=== PATIENT | male | born 1940 | race Caucasian/White ===

== ENCOUNTER → 2016-09-21 | Outpatient (CLI) | payer MEDICARE ==
[2016-09-21 11:40] LABS: Basophils % (A) 1 %; CH 27.1; CHCM 31.3; Eosinophils # (A) 0.2 k/uL (0-0.7); Eosinophils % (A) 6 %; HCT 36.9 % (39.0-53.0); HDW 2.68; HGB 11.8 gm/dL (13.0-17.5); Hypochromasia Slight; Luc % (Auto) 3; Lymphocytes # (A) 0.7 k/uL (1.0-4.8); Lymphocytes % (A) 19 %; MCH 27.8 pg (25.0-35.0); MCHC 32.1 g/dL (31.0-37.0); MCV 86.8 fL (80.0-100.0); Mean Platelet Volume 7.8; Monocytes # (A) 0.3 k/uL (0-1.0); Monocytes % (A) 9 %; Neutrophils # (A) 2.3 k/uL (1.3-7.7); Neutrophils % (A) 63 %; RBC 4.25 m/uL (4.30-5.90); RDW 15.8 % (11.5-15.5); WBC 3.6 k/uL (3.8-10.6); WBC (Perox) 3.78
[2016-09-21 11:42] LABS: Appearance,Urine Clear (Clear); Bilirubin,Urine Negative (Negative); Glucose,Urine (UA) Negative (Negative); Ketones,Urine Negative (Negative); Leukocyte Esterase,Urine Negative (Negative); Nitrite,Urine Negative (Negative); Protein,Urine Negative (Negative); Specific Gravity,Urine 1.006 (1.001-1.035); UA Billing (MACRO vs. MICRO) CHEM; Urobilinogen,Urine <2.0 mg/dL (<2.0)
[2016-09-21 11:57] LABS: ALT 23 U/L (21-72); AST 30 U/L (17-59); Alkaline Phosphatase 48 U/L (38-126); Anion Gap 9 mmol/L; Blood Urea Nitrogen 28 mg/dL (9-20); Calcium 9.4 mg/dL (8.4-10.2); Carbon Dioxide 30 mmol/L (22-30); Chloride 102 mmol/L (98-107); Glucose 107 mg/dL (74-99); Non-African American GFR(MDRD) 60 (>60 ml/min/1.73 sqM); Potassium 4.1 mmol/L (3.5-5.1); Sodium 141 mmol/L (137-145); Total Bilirubin 0.7 mg/dL (0.2-1.3); Total Protein 6.6 g/dL (6.3-8.2)
[2016-09-21 12:04] LABS: Partial Thromboplastin Time 24.4 sec (22.0-30.0); Prothrombin Time 10.3 sec (9.0-12.0)
== END | disposition home or self-care (01) ==
LOC: LABPAT 10:47
PROVIDERS: ATTEND Orthopaedic Surgery Sports Medicine
DX: Z01.812 Encounter for preprocedural laboratory examination (principal); Z01.810 Encounter for preprocedural cardiovascular examination
CPT/HCPCS: 80053; 81003; 85025; 85610; 85730; 87070

== ENCOUNTER 2016-10-04 06:10 | Inpatient (IN) | payer MEDICARE ==
[2016-09-26 13:51] VITALS: BMI 31.1
[~2016-10-04 06:10] MED LIST: ACETAMINOPHEN TAB 500 MG TAB PO ONE; DEXAMETHASONE SOD PHOSPHATE 10 MG/ML 1 ML VIAL IV ONE; HYDROmorphone 1 MG/ML 1 ML SYRINGE IVP PRN; LIDOCAINE 1% 20 ML VIAL (10MG/ML) FOR IV START INTRADERMA PRN; MELOXICAM 7.5 MG TAB PO ONE; MIDAZOLAM 2 MG/2 ML VIAL IV PRN; ONDANSETRON 4 MG/2 ML VIAL IVP ONE; Pre Op ABX Message 1 EACH MISC MISCELLANE ONE; SCOPOLAMINE 1.5MG/72HR PATCH TRANSDERM ONE; TRANEXAMIC ACID 1,000 MG in SODIUM CHLORIDE 0.9% 100 ML IVPB ONE; ceFAZolin 2 GM in SODIUM CHLORIDE 0.9% 100 ML IVPB ONE
[2016-10-04] MEDS ORDERED: ROPIVACAINE 246.25 MG, EPINEPHrine 0.5 MG, KETOROLAC 30 MG, cloNIDine HCL/PF 80 MCG, WA... MISCELLANE ONE ×5 (09:35)
[2016-10-26] MEDS ORDERED: ROPIVACAINE 246.25 MG, EPINEPHrine 0.5 MG, KETOROLAC 30 MG, cloNIDine HCL/PF 80 MCG, WA... MISCELLANE ONE ×10 (17:00)
[2016-11-01] MEDS ORDERED: ROPIVACAINE 246.25 MG, EPINEPHrine 0.5 MG, KETOROLAC 30 MG, cloNIDine HCL/PF 80 MCG, WA... MISCELLANE ONE ×10 (06:00→11:08)
[2016-11-01] MEDS ORDERED: TRANEXAMIC ACID 1,000 MG in SODIUM CHLORIDE 0.9% 100 ML IVPB PRN (06:00)
[2016-11-01] MEDS ORDERED: MIDAZOLAM 2 MG/2 ML VIAL IV PRN (10:42)
[2016-11-01] MEDS ORDERED: HYDROmorphone 1 MG/ML 1 ML SYRINGE IVP PRN ×3 (10:42→13:08)
[2016-11-01] MEDS ORDERED: ONDANSETRON 4 MG/2 ML VIAL IVP ONE (10:42)
[2016-11-01] MEDS ORDERED: DEXAMETHASONE SOD PHOSPHATE 10 MG/ML 1 ML VIAL IV ONE (10:42)
[2016-11-01] MEDS ORDERED: LACTATED RINGERS 1,000 ML IV SCH (10:42)
[2016-11-01] MEDS ORDERED: LIDOCAINE 1% 20 ML VIAL (10MG/ML) FOR IV START INTRADERMA ONE (11:03)
[2016-11-01] MEDS: LACTATED RINGERS 1,000 ML IV SCH ×5 (11:04→23:06)
[2016-11-01] MEDS ORDERED: SODIUM CHLORIDE 0.9% 100 ML BAG ONE (12:59)
[2016-11-01] MEDS ORDERED: PROPOFOL 10 MG/ML 20 ML VIAL IV ONE ×2 (12:59)
[2016-11-01] MEDS ORDERED: MIDAZOLAM 2 MG/2 ML VIAL ONE (12:59)
[2016-11-01] MEDS ORDERED: fentaNYL (PF) 50 MCG/ML 2 ML AMP ONE (12:59)
[2016-11-01] MEDS ORDERED: HYDROcodone/APAP 7.5-325MG 1 EACH TAB PO PRN ×2 (13:08)
[2016-11-01] MEDS ORDERED: NA PHOS,M-B/NA PHOS,DI-BA 133 ML ENEMA RECTAL PRN (13:08)
[2016-11-01] MEDS ORDERED: TEMAZEPAM 15 MG CAP PO PRN (13:08)
[2016-11-01] MEDS ORDERED: MAGNESIUM HYDROXIDE 2,400 MG/10 ML CUP PO PRN (13:08)
[2016-11-01] MEDS ORDERED: NALOXONE 0.4 MG/ML 1 ML VIAL IV PRN (13:08)
[2016-11-01] MEDS ORDERED: hydrOXYzine PAMOATE 25 MG CAP PO PRN (13:08)
[2016-11-01] MEDS ORDERED: BISACODYL 10 MG SUPP RECTAL PRN (13:08)
[2016-11-01] MEDS ORDERED: ONDANSETRON 4 MG/2 ML VIAL IVP PRN (13:08)
[2016-11-01] MEDS ORDERED: ceFAZolin 3,000 MG in SODIUM CHLORIDE 0.9% IRRIGATIO 3,000 ML IRRIGATION ONE (13:29)
--- NOTE | 2016-11-01 15:54 | XR ---
EXAMINATION TYPE: XR knee limited RT DATE OF EXAM: 11/01/2016 3:48 PM COMPARISON: NONE TECHNIQUE: Two views submitted HISTORY: Post op FINDINGS: There is a prosthetic knee in near anatomic alignment. There is soft tissue edema and emphysema. Va scular calcifications noted. Exostosis seen posteriorly distal femur. IMPRESSION: 1. Postoperative change. Appears in near-anatomic alignment
[2016-11-01] MEDS ORDERED: ceFAZolin 2 GM in SODIUM CHLORIDE 0.9% 100 ML IVPB ONE (16:00)
[2016-11-01] MEDS ORDERED: ceFAZolin 2 GM in SODIUM CHLORIDE 0.9% 100 ML IVPB SCH ×2 (16:00→21:00)
[2016-11-01] MEDS: HYDROmorphone 1 MG/ML 1 ML SYRINGE IVP PRN ×2 (17:10→20:53)
[2016-11-01] MEDS: ASPIRIN 325 MG TAB PO SCH (20:54)
[2016-11-01] MEDS: SENNOSIDES-DOCUSATE SODIUM 1 EACH TAB PO SCH (20:54)
[2016-11-02] MEDS: ceFAZolin 2 GM in SODIUM CHLORIDE 0.9% 100 ML IVPB SCH ×2 (00:03→08:11)
[2016-11-02] MEDS: HYDROmorphone 1 MG/ML 1 ML SYRINGE IVP PRN ×3 (00:55→09:17)
[2016-11-02] MEDS: ASPIRIN 325 MG TAB PO SCH ×2 (08:13→20:42)
[2016-11-02 08:22] LABS: Basophils % (A) 0 %; CH 26.7; Eosinophils % (A) 0 %; HCT 33.6 % (39.0-53.0); HDW 2.47; HGB 10.7 gm/dL (13.0-17.5); Hypochromasia Slight; Luc % (Auto) 1; Lymphocytes # (A) 0.7 k/uL (1.0-4.8); Lymphocytes % (A) 7 %; MCH 27.5 pg (25.0-35.0); MCHC 31.8 g/dL (31.0-37.0); MCV 86.6 fL (80.0-100.0); Mean Platelet Volume 7.5; Monocytes # (A) 0.7 k/uL (0-1.0); Monocytes % (A) 7 %; Neutrophils # (A) 7.7 k/uL (1.3-7.7); Neutrophils % (A) 84 %; RBC 3.88 m/uL (4.30-5.90); RDW 15.2 % (11.5-15.5); WBC 9.1 k/uL (3.8-10.6); WBC (Perox) 10.11
--- NOTE | 2016-11-02 09:08 | OP ---
DATE OF SERVICE: 11/01/2016 SURGEON: GINNY DESOUZA MD SUPERVISOR SEWER MAINTENANCE: PREOPERATIVE DIAGNOSIS: Right knee osteoarthrosis. POSTOPERATIVE DIAGNOSIS: Right knee osteoarthrosis. OPERATION: Right total knee arthroplasty. ANESTHESIA: Spinal with sedation. ESTIMATED BLOOD LOSS: 100 mL. TOURNIQUET TIME: 68 minutes at 250 mmHg. SPECIMENS REMOVED: COMPLICATIONS: None apparent. DRAINS: None. DISPOSITION: Postanesthesia care unit. OPERATIVE FINDINGS: INDICATIONS: Peter is a 76-year-old male with long-standing history of right knee pain. History and physical examination is consistent with advanced right knee osteoarthrosis. He has been through significant nonoperative management up to this point. Further treatment options were discussed and he has decided to go forward with a right total knee arthroplasty. The risks of the procedure were discussed with him in detail. These risks include, but are not limited to risk of infection, nerve damage, bleeding, pain, and a risk of deep vein thrombosis, which could lead to fatal pulmonary embolism. There is also a risk of loosening of the implant, which could require revision operation. Patient understands these risks. All of his questions were answered to his satisfaction. An appropriate informed consent was obtained. DESCRIPTION OF THE PROCEDURE: The patient was identified in the preoperative holding area. The surgical site was marked by both the patient and myself. He was given 2 grams of Ancef IV for prophylactic purposes. He then transferred to the operative suite. He was placed supine on the operating room table. Spinal anesthetic was then administered and dosed by the anesthesia department without apparent complication. Examination under anesthesia was then performed. The patient has about 5 degrees shy of full extension. He had 100 degrees of flexion and the medial collateral ligament, lateral collateral ligament and posterior cruciate ligaments were stable. Tourniquet was then placed high on the right upper thigh, well padded in preparation for surgery. The patient's right lower extremity was then prepped and draped in the usual sterile fashion. Standard surgical pause was then undertaken to ensure that we were operating on correct site and that appropriate preoperative antibiotics had been given. All staff in the room were in agreement and we proceeded. The outlines of the patella were marked with surgical pen. A planned 12 cm vertical incision centered over the patella was marked with a surgical pen. The leg was then exsanguinated with an Esmarch dressing. The knee was then flexed and the tourniquet was inflated to 250 mmHg. The total tourniquet time for the procedure was 68 minutes. Incision was then made with a 10 blade scalpel. Dissection was carried down sharply to the overlying fascia. Great care was taken to minimize the skin flaps. The knee was then exposed using a standard medial parapatellar approach. A small cuff of quadriceps tendon was then left for suturing. He was in a bit of valgus preoperatively. Very minimal medial release was made. This was done just to allow the retractors to be placed medially. The medial meniscus was then excised as well. The lateral meniscus was also released anteriorly. The leg was then externally rotated. The patella was then everted and the knee was flexed. The retractor was then placed to protect the collateral ligaments. I then proceeded to remove the infrapatellar fat pad. This was excised sharply, tangentially with the fibers of the patellar tendon. I then proceeded to remove the peripheral osteophytes. This was done with a rongeur. I then proceeded with the distal femoral resection. He did have flexion contracture. An extra 2 mm resection was planned for. The femoral canal was then entered in the mid line of the femur approximately 10 mm anterior to the origin of the posterior cruciate ligament. The ludin was then advanced down the center of the femur and placed intramedullary. Based on preoperative radiographs, the angle between the anatomic and mechanical axis of the femur was approximately 4 to 5 degrees. The valgus angle of distal femoral cutting guide was then set at 4 degrees for the right knee. The distal femoral cutting guide was then advanced over the intramedullary ludin. This was seated firmly against the femur. I then, as mentioned, planned to take on 11 mm off the distal femur. The cutting block was then secured onto the femur with pins. The jig was then removed and the distal femoral cut was made through the slot of the block. The pins were then removed and the distal femoral cutting block was removed. The accuracy of the distal femoral cuts was checked with 2 flat bars. I then proceeded with femoral sizing. The posterior referencing sizing guide was held firmly against the resected distal surface of the femur. Posterior condyles were resting on the posterior plane of the guide. The sizing stylus was then placed onto the anterior femur. This size was measured as a size 9. I then assessed for femoral rotation. Plan was for 3 degrees of external rotation. Three degrees of external rotation was placed onto the jig. These holes were then marked. I then confirmed rotation by 3 separate methods. This was done using the epicondylar axis as well as Whitesides line and posterior referencing. It was deemed that the external rotation was proper. I then went forward with placing the femoral cutting block. This was placed over the previously placed pinholes. The rolan wing was then placed onto the anterior slots to ensure that we would not notch the anterior femur with the anterior femoral cut. I then proceeded with the anterior femoral cut. This was flush with the anterior cortex of the femur. Posterior cuts were then made followed by the anterior chamfer cut and the posterior chamfer cut. The cutting block was then removed. Throughout the resection, the collateral ligaments were protected with retractors. I then placed trial size 9 femur. It fit very nicely medial lateral and fit flush with the distal end of the femur. The drill holes were then made. I then proceeded with the tibial cut. I planned for cruciate-retaining knee. The guide was placed and set for varus valgus and for slope. The height was set for an approximate 2 mm resection from the lateral tibial plateau, which was the lower side. I was happy with the alignment and the amount of resection. The cutting block was then pinned to the proximal tibia. The alignment ludin was removed and the proximal tibia was resected with the reciprocating saw. Again, this was done using with retractors, protecting the collateral ligaments as well as posterior cruciate ligament. I then proceeded to evaluate the flexion and extension gaps. A 10 mm block was placed. The flexion-extension gaps were equal. I then proceeded with resection of the posterior osteophytes. There were very minimal posterior osteophytes. This was done using curved osteotome. This resected the posterior osteophytes and posterior capsule stripping was also done off the posterior aspect of the femur at this time. The osteophytes were then removed. I then proceeded with resection of the patella. Thickness of the patella was measured using the caliper. The thickness was 22 mm. The thickness of the anticipated patellar dome was taken in to account. Resection was then performed and confirmed to be equal in 4 quadrants using a caliper. Approximately 14 mm of bone remained after the resection. A 32 x 8.5 mm standard patellar trial was then placed. The holes were then drilled and trial was then placed. I then proceeded with sizing the tibial plate. A size F tibial plate fit very nicely. I then placed trial femur, tibial tray and the patellar button. A 10 mm trial tibial insert was also placed. The components fit very nicely. He had full extension and flexion. The extension and flexion gaps were equal and stable to both varus and valgus stress. The patella tracked appropriately. Tibial tray rotation was marked with a Bovie. This was externally rotated properly. I then proceeded with tibial preparation. I first drilled the femoral holes and removed femoral component. The tibial tray was then set for proper external rotation as well as mediolateral placement onto the tibia. It was then pinned into place. I then proceeded with punching the keel. I then decided to proceed with cementing of all of our components. The knee was thoroughly irrigated with sterile saline solution via pulse lavage. The lateral genicular artery was identified and cauterized. All blood was removed from the bone of the tibia, femur and patella with pulse lavage. I then proceed with cementing. Two packs of antibiotic bone cement were prepared on the back table by the surgical nurse. I then proceeded with cementing of the tibia first. The cement was then impacted into the keel as well as deeply seated into bone. A second coat of cement was then placed. The tibia was then impacted into place. Excess cement was removed with Cushings and Jokers. I then proceeded with cementing of femoral component. The femoral component was also cemented using standard technique. Excess cement was removed. A 10 mm trial insert was then placed into the knee. It was brought into full extension with a constant axial load placed until the cement had hardened. When the patellar component was then cemented, this was held firmly with a compressive device until the cement had dried. When the cement had dried, the knee was taken out of extension. All excess cement was removed from around the prosthesis. I then trialed the knee a 10 mm insert. The flexion and extension gaps were appropriate. The knee was stable. It came into full extension. I decided to go forward with a 10 mm crosslinked cruciate-retaining tibial insert. Polyethylene was then placed onto the tibial tray and locked into place. The knee was then reduced. The knee was again further irrigated with sterile saline solution with antibiotic added. The tourniquet was then deflated. The total tourniquet time for the procedure was 68 minutes at 250 mmHg. Final components were Brooklynn Persona size 9 cruciate-retaining femoral component, a size F tibial tray, a 10 mm medial congruent cruciate retaining polyethylene insert and a 32 x 8.5 mm patella. I then proceeded with closure. Again, the knee was thoroughly irrigated. The quadriceps tendon and the medial retinaculum were reapproximated with #2 Ethibond suture. The extensor mechanism was then closed with running #2 Quill suture. Subcutaneous tissues were then closed with 2-0 Vicryl interrupted suture. The skin was closed with running 3-0 Quill suture. The Dermabond was applied to the incision. Sterile compressive dressings were then applied. All sponge and needle counts were deemed correct prior to closure. The patient tolerated the procedure without apparent complication. He was transferred to recovery room in stable condition.
[2016-11-02] MEDS: FAMOTIDINE 20 MG TAB PO SCH (09:18)
[2016-11-02] MEDS ORDERED: traMADol 50 MG TAB PO PRN (09:29)
--- NOTE | 2016-11-02 10:09 | P.PN ---
Subjective Principal diagnosis: Status post right total knee arthroplasty This is a 76 year-old male post total knee arthroplasty. This is post-op day 1. The patient was evaluated in the recliner chair at the bedside today. The patient denies nausea, vomiting, abdominal pain, shortness of breath, and chest pain this morning. He states has pain is controlled at this time. The patient has ambulated to the bathroom this morning. Objective - Vital Signs Vital signs: Vital Signs Temp 98.2 F 11/02/16 07:00 Pulse 69 11/02/16 07:00 Resp 16 11/02/16 07:00 BP 126/61 11/02/16 07:00 Pulse Ox 96 11/02/16 07:00 Intake & Output 11/01/16 11/02/16 11/02/16 18:59 06:59 18:59 Intake Total 1001 1890 Output Total 200 500 400 Balance 801 1390 -400 Weight 92.986 kg Intake: IV 1001 1200 Lactated Ringers 1,000 ml 1200 @ 100 mls/hr IV .Q10H [facility] Rx#:[id number] Oral 690 Output: Urine 100 500 400 Uretheral (Mclaughlin) 500 400 Estimated Blood Loss 100 Other: Voiding Method Indwelling Catheter Indwelling Catheter # Bowel Movements 1 - Exam The patient does not appear in acute distress. Alert and orientated x3. Dressing is clean dry and intact. Incision appears fine with no erythema or active drainage. Calf is soft and nontender. Good foot and ankle motion without difficulty. Sensation and circulatory status is intact. - Labs CBC & Chem 7: 11/02/16 07:09 Labs: Abnormal Lab Results - Last 24 Hours (Table) 11/02/16 Range/Units 07:09 RBC 3.88 L (4.30-5.90) m/uL Hgb 10.7 L (13.0-17.5) gm/dL Hct 33.6 L (39.0-53.0) % Lymphocytes # 0.7 L (1.0-4.8) k/uL Assessment and Plan (1) Primary localized osteoarthritis of right knee Status: Acute (2) Status post total right knee replacement Status: Acute Plan: 1. Continue pain control 2. Anticoagulation with Aspirin BID 3. Continue physical therapy and ambulation 4. Anticipate discharge home with homecare tomorrow
[2016-11-02] MEDS ORDERED: CYCLOBENZAPRINE 5 MG TAB PO PRN (10:13)
[2016-11-02] MEDS ORDERED: DICLOFENAC SODIUM PO SCH (10:15)
[2016-11-02] MEDS ORDERED: MISOPROSTOL PO SCH (10:15)
[2016-11-02] MEDS: traMADol 50 MG TAB PO PRN ×2 (11:34→17:06)
[2016-11-02] MEDS: MISOPROSTOL 200 MCG TAB PO SCH ×2 (11:35→20:44)
[2016-11-02] MEDS: ETODOLAC 200 MG CAPSULE PO SCH ×2 (11:35→20:44)
[2016-11-02] MEDS: LACTATED RINGERS 1,000 ML IV SCH (14:28)
[2016-11-02] MEDS: ACETAMINOPHEN TAB 500 MG TAB PO PRN ×2 (14:41→22:03)
--- NOTE | 2016-11-02 14:55 | P.CONS ---
History of Present Illness - Reason for Consult Consult date: 11/02/16 Requesting physician: Gunner Ramos - Chief Complaint Right knee was arthritis - History of Present Illness This is a 75-year-old male, patient of . He has a known past medical history of coronary artery disease with previous coronary artery bypass grafting. History of atrial valve replacement and mitral valve repair. He also has a history of polymyalgia rheumatic for which he is takes Cortef. Patient has been suffering with right knee pain and osteoarthritis of the knee. He underwent a right total knee arthroplasty with Dr. Ramos. Patient has tolerated surgery well. He's sitting in bedside chair. He has been up and ambulating today. Denies any chest pain or shortness of breath. Denies any nausea or vomiting. Passing gas no bowel movement yet. Denies any difficulty with urinating. Review of Systems Review of system: 14 points review of systems were obtained and were negative except to what were mentioned in the HPI. Past Medical History Past Medical History: Coronary Artery Disease (CAD), GERD/Reflux, Hyperlipidemia , Myocardial Infarction (SC), Osteoarthritis (OA), Pneumonia, Prostate Disorder Additional Past Medical History / Comment(s): polymyalgia rheumatica, "silent migraines-gets blurry vision", hx ulcer, anemia, "precancer lesion", surgery was rescheduled due to an inflammed right foot-now resolved & recent cold & sore throat-just finished antibiotics Last Myocardial Infarction Date:: 2013 History of Any Multi-Drug Resistant Organisms: None Reported Past Surgical History: Cardiac Valve Replacement, Coronary Bypass/CABG, Heart Catheterization, Tonsillectomy Additional Past Surgical History / Comment(s): rt elbow surgery, cataracts, open heart surgery- AORTIC VALVE AND MITRAL VALVE & double bypass TOTAL LT KNEE Past Anesthesia/Blood Transfusion Reactions: Motion Sickness Additional Past Anesthesia/Blood Transfusion Reaction / Comm: motion sickness as child Past Psychological History: No Psychological Hx Reported Smoking Status: Former smoker Past Alcohol Use History: Occasional Additional Past Alcohol Use History / Comment(s): Smokes cigars occasionally - 2 CIGARS A DAY 20 YEARS Past Drug Use History: None Reported - Past Family History Brother(s) Family Medical History: No Reported History Mother Family Medical History: No Reported History Additional Family Medical History / Comment(s): BORN IN [place], SMOKED MOST OF HER ADULT LIFE- FROM OLD AGE Father Family Medical History: Cancer Medications and Allergies Home Medications Medication Instructions Recorded Confirmed Type Lovastatin [Mevacor] 20 mg PO MOWEFR 08/19/15 11/01/16 History diphenhydrAMINE HCL [Benadryl] 50 mg PO HS 08/19/15 11/01/16 History Furosemide [Lasix] 40 mg PO DAILY 06/05/16 11/01/16 History Hydrocortisone [Cortef] 5 mg PO DAILY@1600 06/05/16 11/01/16 History Hydrocortisone [Cortef] 20 mg PO QAM 06/05/16 11/01/16 History Acetaminophen Tab [Tylenol Tab] 1,000 mg PO Q6HR PRN 09/26/16 11/01/16 History Cholecalciferol [Vitamin D3] 5,000 unit PO DAILY 09/26/16 11/01/16 History Cyclobenzaprine [Flexeril] 5 mg PO BID PRN 09/26/16 11/01/16 History Diclofenac Sodium/Misoprostol 1 tab PO BID 09/26/16 11/01/16 History [Arthrotec 75 mg-200 Mcg Tab] Ferrous Sulfate [Iron (65 MG 325 mg PO DAILY 09/26/16 11/01/16 History Elemental)] Potassium Gluconate 595 mg PO DAILY 09/26/16 11/01/16 History Sildenafil Citrate [Viagra] 100 mg PO DAILY PRN 09/26/16 11/01/16 History Temazepam [Restoril] 15 mg PO HS PRN 09/26/16 11/01/16 History Ubidecarenone [Co Q-10] 200 mg PO MOWEFR 09/26/16 11/01/16 History traMADol HCL [Ultram] 50 mg PO Q6H PRN 09/26/16 11/01/16 History Tamsulosin [Flomax] 0.4 mg PO HS 11/01/16 11/01/16 History Allergies Allergy/AdvReac Type Severity Reaction Status Date / Time codeine Allergy Hallucinati Verified 11/01/16 10:54 ons hydrocodone [From [facility]] AdvReac Hallucinati Verified 11/01/16 10:54 ons morphine AdvReac arm pham Verified 11/01/16 10:54 and becomes beligerant Physical Exam Vitals: Vital Signs Temp Pulse Pulse Resp BP BP Pulse Ox 04/07/17 07:00 98.2 F 69 16 126/61 96 11/02/16 01:24 98.1 F 69 16 118/59 95 11/01/16 20:00 97.9 F 64 16 144/66 94 L 11/01/16 18:30 74 134/62 92 L 11/01/16 18:15 74 126/60 96 11/01/16 18:00 75 134/59 97 11/01/16 17:45 68 158/68 96 11/01/16 17:30 130/71 11/01/16 17:15 66 130/64 11/01/16 17:00 63 123/53 95 11/01/16 16:45 63 121/61 94 L 11/01/16 16:30 97.7 F 64 16 119/60 94 L 11/01/16 15:45 60 18 137/65 96 11/01/16 15:31 60 18 141/63 94 L 11/01/16 15:15 62 62 18 136/94 94 L 11/01/16 15:10 97.3 F L 62 16 146/64 93 L Intake and Output 11/01/16 11/02/16 11/02/16 22:59 06:59 14:59 Intake Total 790 1300 Output Total 500 575 Balance 790 800 -575 Intake: IV 200 1200 Lactated Ringers 1,000 ml 1200 @ 100 mls/hr IV .Q10H [facility] Rx#:[id number] Oral 590 100 Output: Urine 500 575 Uretheral (Mclaughlin) 500 400 Other: Voiding Method Indwelling Catheter Indwelling Catheter # Bowel Movements 1 Weight 92.986 kg General: The patient is awake and alert, in no distress Eye: there is normal conjunctiva bilaterally. Neck: The neck is supple, there is no JVD. Cardiovascular: Normal S1-S2, no S3-S4, no murmurs. Respiratory: Lungs clear to auscultation bilaterally Gastrointestinal: Abdomen is soft, nontender Musculoskeletal: There is no pedal edema. Neurological:. Speech is normal. Skin: Skin is warm and dry Results CBC & Chem 7: 11/02/16 07:09 Labs: Abnormal Lab Results - Last 24 Hours (Table) 11/02/16 Range/Units 07:09 RBC 3.88 L (4.30-5.90) m/uL Hgb 10.7 L (13.0-17.5) gm/dL Hct 33.6 L (39.0-53.0) % Lymphocytes # 0.7 L (1.0-4.8) k/uL Assessment and Plan Plan: 1. Osteoarthritis of the right knee: Status post total knee arthroplasty. Postoperative day #0. DVT prophylaxis with full dose aspirin twice daily per orthopedic protocol. Continue with current pain medications 2. History of polymyalgia rheumatica: Continue Cortef 3. History of coronary artery disease with coronary artery bypass grafting. continue aspirin 81 mg daily 4. History of aortic valve replacement and mitral valve repair 5. BPH continue Flomax Today, I reviewed her medication list and lab work results. Continue current regimen. Thank you very much for the consultation. I will continue to follow up on the patient closely.
[2016-11-02] MEDS: HYDROCORTISONE 10 MG TAB PO SCH (17:05)
[2016-11-02] MEDS: diphenhydrAMINE 50 MG CAP PO SCH (20:42)
[2016-11-02] MEDS: SENNOSIDES-DOCUSATE SODIUM 1 EACH TAB PO SCH (20:44)
[2016-11-02] MEDS: TAMSULOSIN 0.4 MG CAP.ER.24H PO SCH (20:44)
[2016-11-02] MEDS ORDERED: ETODOLAC 200 MG CAPSULE PO SCH (21:00)
[2016-11-02] MEDS ORDERED: MISOPROSTOL 200 MCG TAB PO SCH (21:00)
[2016-11-02] MEDS ORDERED: ATORVASTATIN 10 MG TAB PO SCH (21:00)
[2016-11-02] MEDS ORDERED: CALCIUM CARBONATE 500 MG CHEWABLE PO PRN (21:15)
[2016-11-03 02:09] VITALS: RESP 16
[2016-11-03] MEDS: ACETAMINOPHEN TAB 500 MG TAB PO PRN ×3 (04:13→17:13)
[2016-11-03] MEDS: traMADol 50 MG TAB PO PRN ×3 (07:22→20:29)
[2016-11-03] MEDS ORDERED: POTASSIUM GLUCONATE 595 MG PO SCH (09:00)
[2016-11-03] MEDS: ASPIRIN 325 MG TAB PO SCH ×2 (09:03→20:29)
[2016-11-03] MEDS: FAMOTIDINE 20 MG TAB PO SCH (09:03)
[2016-11-03] MEDS: ETODOLAC 200 MG CAPSULE PO SCH ×2 (09:04→20:30)
[2016-11-03] MEDS: HYDROCORTISONE 20 MG TAB PO SCH (09:04)
[2016-11-03] MEDS: FUROSEMIDE 40 MG TAB PO SCH (09:04)
[2016-11-03] MEDS: MISOPROSTOL 200 MCG TAB PO SCH ×2 (09:21→20:30)
[2016-11-03] MEDS ORDERED: ONDANSETRON 4 MG TAB PO PRN (09:25)
[2016-11-03] MEDS: CHOLECALCIFEROL 1,000 UNIT TAB PO SCH (11:17)
[2016-11-03] MEDS: FERROUS SULFATE 325 MG TAB PO SCH (11:19)
--- NOTE | 2016-11-03 11:47 | P.PN ---
Subjective Principal diagnosis: Status post right knee total arthroplasty This is a pleasant 76-year-old gentleman who is status post right total knee arthroplasty. Today's postoperative day #2. Patient is seen and evaluated at bedside this morning. He complains of some nausea this morning. He did have emesis earlier this point. He states that is much improved at this time. He denies abdominal pain. He has had a bowel movement. He's been progressing with physical therapy. Objective - Vital Signs Vital signs: Vital Signs Temp 98.5 F 11/03/16 07:00 Pulse 70 11/03/16 07:00 Resp 16 11/03/16 07:00 BP 117/59 11/03/16 07:00 Pulse Ox 93 L 11/03/16 07:00 Intake & Output 11/02/16 11/03/16 11/03/16 18:59 06:59 18:59 Intake Total 200 Output Total 575 Balance -375 Intake: IV 200 Lactated Ringers 1,000 ml 100 @ 100 mls/hr IV .Q10H [facility] Rx#:[id number] ceFAZolin 2 gm In Sodium 100 Chloride 0.9% 100 ml @ 100 mls/hr IVPB ONCE ONE Rx#:[id number] Output: Urine 575 Uretheral (Mclaughlin) 400 Other: Voiding Method Indwelling Catheter # Voids 1 - Exam The patient does not appear in acute distress. Alert and orientated 3. Dressing is clean dry and intact. Incision appears fine with no erythema or active drainage. Calf is soft and nontender. Good foot and ankle motion without difficulty. Sensation and circulatory status is intact. - Labs CBC & Chem 7: 11/02/16 07:09 Assessment and Plan (1) Primary localized osteoarthritis of right knee Status: Acute (2) Status post total right knee replacement Status: Acute Plan: 1. Continue with routine postoperative care. 2. Anticoagulation with aspirin. 3. Physical therapy and CPM today. 4. Appreciate input from medicine. 5. Anticipate discharge to home with home care likely tomorrow.
--- NOTE | 2016-11-03 14:31 | P.PN ---
Subjective Patient is doing well today. He was having issues with nausea earlier. He is doing a lot better right now. Objective - Vital Signs Vital signs: Vital Signs Temp 98.5 F 11/03/16 07:00 Pulse 70 11/03/16 07:00 Resp 16 11/03/16 07:00 BP 117/59 11/03/16 07:00 Pulse Ox 93 L 11/03/16 07:00 Intake & Output 11/02/16 11/03/16 11/03/16 18:59 06:59 18:59 Intake Total 200 300 Output Total 575 Balance -375 300 Intake: IV 200 Lactated Ringers 1,000 ml 100 @ 100 mls/hr IV .Q10H [facility] Rx#:[id number] ceFAZolin 2 gm In Sodium 100 Chloride 0.9% 100 ml @ 100 mls/hr IVPB ONCE ONE Rx#:[id number] Oral 300 Output: Urine 575 Uretheral (Mclaughlin) 400 Other: Voiding Method Indwelling Catheter # Voids 1 2 - Exam General: The patient is awake and alert, in no distress Eye: there is normal conjunctiva bilaterally. Neck: The neck is supple, there is no JVD. Cardiovascular: Normal S1-S2, no S3-S4, no murmurs. Respiratory: Lungs clear to auscultation bilaterally Gastrointestinal: Abdomen is soft, nontender Musculoskeletal: There is no pedal edema. Neurological:. Speech is normal. Skin: Skin is warm and dry - Labs CBC & Chem 7: 11/02/16 07:09 Assessment and Plan Plan: 1. Osteoarthritis of the right knee: Status post total knee arthroplasty. Postoperative day #1. DVT prophylaxis with full dose aspirin twice daily per orthopedic protocol. Continue with current pain medications 2. History of polymyalgia rheumatica: Continue Cortef 3. History of coronary artery disease with coronary artery bypass grafting. continue aspirin 81 mg daily 4. History of aortic valve replacement and mitral valve repair 5. BPH continue Flomax Today, I reviewed her medication list and lab work results. Continue current regimen. Thank you very much for the consultation. I will continue to follow up on the patient closely.
[2016-11-03] MEDS: HYDROCORTISONE 10 MG TAB PO SCH (15:24)
[2016-11-03] MEDS: SENNOSIDES-DOCUSATE SODIUM 1 EACH TAB PO SCH (20:28)
[2016-11-03] MEDS: diphenhydrAMINE 50 MG CAP PO SCH (20:29)
[2016-11-03] MEDS: TAMSULOSIN 0.4 MG CAP.ER.24H PO SCH (20:29)
[2016-11-04] MEDS: traMADol 50 MG TAB PO PRN ×2 (02:16→09:05)
[2016-11-04] MEDS: ACETAMINOPHEN TAB 500 MG TAB PO PRN (05:23)
[2016-11-04 07:26] LABS: Basophils % (A) 0 %; CH 27.2; Eosinophils # (A) 0.3 k/uL (0-0.7); Eosinophils % (A) 4 %; HCT 31.6 % (39.0-53.0); HDW 2.43; HGB 9.9 gm/dL (13.0-17.5); Hypochromasia Slight; Luc # (Auto) 0.12; Luc % (Auto) 2; Lymphocytes # (A) 0.9 k/uL (1.0-4.8); Lymphocytes % (A) 15 %; MCH 27.5 pg (25.0-35.0); MCHC 31.2 g/dL (31.0-37.0); MCV 88.1 fL (80.0-100.0); Mean Platelet Volume 7.4; Monocytes # (A) 0.4 k/uL (0-1.0); Monocytes % (A) 7 %; Neutrophils # (A) 4.4 k/uL (1.3-7.7); Neutrophils % (A) 72 %; RBC 3.58 m/uL (4.30-5.90); RDW 15.4 % (11.5-15.5); WBC 6.1 k/uL (3.8-10.6); WBC (Perox) 6.54
[2016-11-04 07:49] LABS: ALT 24 U/L (21-72); AST 20 U/L (17-59); Alkaline Phosphatase 47 U/L (38-126); Anion Gap 9 mmol/L; Blood Urea Nitrogen 30 mg/dL (9-20); Carbon Dioxide 28 mmol/L (22-30); Chloride 103 mmol/L (98-107); Glucose 106 mg/dL (74-99); Non-African American GFR(MDRD) 59 (>60 ml/min/1.73 sqM); Potassium 4.2 mmol/L (3.5-5.1); Sodium 140 mmol/L (137-145); Total Bilirubin 0.6 mg/dL (0.2-1.3); Total Protein 5.9 g/dL (6.3-8.2)
[2016-11-04 08:00] VITALS: BP 124/68; PULSE 73; TEMP 98.6
[2016-11-04] MEDS: ASPIRIN 325 MG TAB PO SCH (08:00)
[2016-11-04] MEDS: FUROSEMIDE 40 MG TAB PO SCH (08:01)
[2016-11-04] MEDS: ETODOLAC 200 MG CAPSULE PO SCH (08:01)
[2016-11-04] MEDS: MISOPROSTOL 200 MCG TAB PO SCH (08:01)
[2016-11-04] MEDS: FAMOTIDINE 20 MG TAB PO SCH (08:01)
[2016-11-04] MEDS: HYDROCORTISONE 20 MG TAB PO SCH (08:02)
--- NOTE | 2016-11-04 10:30 | P.DS ---
Providers Date of admission: 11/01/16 10:31 Expected date of discharge: 11/04/16 Attending physician: Gunner Ramos Consults: 11/01/16 15:43 Consult Physician Routine Consulting Provider: Cecil Lam Consult Reason/Comments: medical management Do you want consulting provider notified?: Yes Primary care physician: Stated None - Discharge Diagnosis(es) (1) Primary localized osteoarthritis of right knee Current Visit: Yes Status: Acute (2) Status post total right knee replacement Current Visit: Yes Status: Acute Hospital Course: This is a pleasant 76-year-old gentleman last seen in our office with complaints of right knee pain. Patient has known history of degenerative arthritis of the right knee and presented to discuss options. After discussion and consideration, patient elected to proceed with a total knee arthroplasty of the right knee. The patient was seen preoperatively and medically cleared for surgery by his primary care physician. The patient was admitted to [facility] and underwent right total knee arthroplasty with Dr. Gunner Ramos. The procedure was performed without complications or sequelae. He did have some nausea yesterday and his discharge was held. He has had bowel movements. He is passing flatus. He did have some abdominal pain which has resolved and he was reevaluated with Dr. Gunner Ramos. Pain is reasonably controlled. Dressing is clean dry and intact. Incision looks fine with no erythema or active drainage. Calf is soft and nontender. The patient has full foot and ankle motion without difficulty. Patient's right lower extremity is neurovascular intact. Patient is orthopedically stable for discharge to home today if cleared medically.. Pertinent Studies: Laboratory Tests 11/04/16 11/04/16 06:37 06:37 WBC 6.1 RBC 3.58 L Hgb 9.9 L Hct 31.6 L BUN 30 H Creatinine 1.19 Est GFR (MDRD) Af Amer >60 Est GFR (MDRD) Non-Af 59 Glucose 106 H Calcium 9.0 Total Bilirubin 0.6 AST 20 ALT 24 Alkaline Phosphatase 47 Total Protein 5.9 L Albumin 3.3 L Patient Condition at Discharge: Good Plan - Discharge Summary New Discharge Prescriptions: Acetaminophen Tab [Tylenol Tab] 1,000 mg PO Q6HR PRN #90 tablet PRN Reason: Pain Aspirin 325 mg PO BID #60 tab Sennosides-Docusate Sodium [Senokot-S] 2 tab PO DAILY #30 tablet traMADol HCl [Ultram] 50 - 100 mg PO Q4-6H PRN #90 tab PRN Reason: Pain Discharge Medication List Aspirin 81 mg PO DAILY chew 12/01/14 [Rx] Lovastatin [Mevacor] 20 mg PO MOWEFR 08/19/15 [History] diphenhydrAMINE HCL [Benadryl] 50 mg PO HS 08/19/15 [History] Furosemide [Lasix] 40 mg PO DAILY 06/05/16 [History] Hydrocortisone [Cortef] 5 mg PO DAILY@1600 06/05/16 [History] Hydrocortisone [Cortef] 20 mg PO QAM 06/05/16 [History] Acetaminophen Tab [Tylenol Tab] 1,000 mg PO Q6HR PRN 09/26/16 [History] Cholecalciferol [Vitamin D3] 5,000 unit PO DAILY 09/26/16 [History] Cyclobenzaprine [Flexeril] 5 mg PO BID PRN 09/26/16 [History] Diclofenac Sodium/Misoprostol [Arthrotec 75 mg-200 Mcg Tab] 1 tab PO BID [History] Ferrous Sulfate [Iron (65 MG Elemental)] 325 mg PO DAILY 09/26/16 [History] Potassium Gluconate 595 mg PO DAILY 09/26/16 [History] Sildenafil Citrate [Viagra] 100 mg PO DAILY PRN 09/26/16 [History] Temazepam [Restoril] 15 mg PO HS PRN 09/26/16 [History] Ubidecarenone [Co Q-10] 200 mg PO MOWEFR 09/26/16 [History] traMADol HCL [Ultram] 50 mg PO Q6H PRN 09/26/16 [History] Tamsulosin [Flomax] 0.4 mg PO HS 11/01/16 [History] Acetaminophen Tab [Tylenol Tab] 1,000 mg PO Q6HR PRN #90 tablet 11/02/16 [Rx] Aspirin 325 mg PO BID #60 tab 11/02/16 [Rx] Sennosides-Docusate Sodium [Senokot-S] 2 tab PO DAILY #30 tablet 11/02/16 [Rx] traMADol HCl [Ultram] 50 - 100 mg PO Q4-6H PRN #90 tab 11/02/16 [Rx] Follow up Appointment(s)/Referral(s): [facility], [NON-STAFF] - 1 Week Gunner Ramos MD [STAFF PHYSICIAN] - 2 Weeks Activity/Diet/Wound Care/Special Instructions: Weightbearing as tolerated with a walker Daily dressing changes, keep incision clean and dry Aspirin twice daily to prevent blood clots May shower 3 days after surgery Call [facility] with questions or concerns [phone] Discharge Disposition: HOME WITH HOME HEALTH SERVICES
[2016-11-04] MEDS: FERROUS SULFATE 325 MG TAB PO SCH (12:16)
[2016-11-04] MEDS: CHOLECALCIFEROL 1,000 UNIT TAB PO SCH (12:16)
== END 2016-11-04 14:46 | disposition home health service (06) | DRG 470 ==
LOC: 2ORMAIN 11-01 10:31 → 3SUR 11-01 15:04
PROVIDERS: ADMIT Orthopaedic Surgery Sports Medicine; ATTEND Orthopaedic Surgery Sports Medicine
PROC: 0SRC0J9 Replacement of Right Knee Joint with Synthetic Substitute, Cemented, Open Approach (ICD-10-PCS; principal; 2016-11-01 12:05)
DX: M17.11 Unilateral primary osteoarthritis, right knee (principal); I10 Essential (primary) hypertension; E78.5 Hyperlipidemia, unspecified; H91.90 Unspecified hearing loss, unspecified ear; M35.3 Polymyalgia rheumatica; I25.10 Atherosclerotic heart disease of native coronary artery without angina pectoris; I25.2 Old myocardial infarction; K21.9 Gastro-esophageal reflux disease without esophagitis; N40.0 Benign prostatic hyperplasia without lower urinary tract symptoms; G43.909 Migraine, unspecified, not intractable, without status migrainosus; Z87.891 Personal history of nicotine dependence; Z98.42 Cataract extraction status, left eye; Z98.41 Cataract extraction status, right eye; Z95.1 Presence of aortocoronary bypass graft; Z95.2 Presence of prosthetic heart valve; Z96.652 Presence of left artificial knee joint; Z79.82 Long term (current) use of aspirin; Z79.899 Other long term (current) drug therapy
CPT/HCPCS: 80053; 85025; 88300

== ENCOUNTER → 2016-10-26 | Outpatient (CLI) | payer MEDICARE ==
[2016-10-26 12:21] LABS: Basophils % (A) 1 %; CH 26.7; Eosinophils # (A) 0.1 k/uL (0-0.7); Eosinophils % (A) 3 %; HCT 39.7 % (39.0-53.0); HDW 2.55; HGB 12.3 gm/dL (13.0-17.5); Hypochromasia Slight; Luc # (Auto) 0.09; Luc % (Auto) 2; Lymphocytes # (A) 0.9 k/uL (1.0-4.8); Lymphocytes % (A) 21 %; MCH 26.7 pg (25.0-35.0); MCHC 30.9 g/dL (31.0-37.0); MCV 86.4 fL (80.0-100.0); Mean Platelet Volume 7.5; Monocytes # (A) 0.3 k/uL (0-1.0); Monocytes % (A) 7 %; Neutrophils # (A) 2.8 k/uL (1.3-7.7); Neutrophils % (A) 67 %; RDW 15.5 % (11.5-15.5); WBC 4.2 k/uL (3.8-10.6); WBC (Perox) 4.52
[2016-10-26 12:24] LABS: Appearance,Urine Clear (Clear); Bilirubin,Urine Negative (Negative); Glucose,Urine (UA) Negative (Negative); Ketones,Urine Negative (Negative); Leukocyte Esterase,Urine Negative (Negative); Nitrite,Urine Negative (Negative); Protein,Urine Negative (Negative); Specific Gravity,Urine 1.007 (1.001-1.035); UA Billing (MACRO vs. MICRO) CHEM; Urobilinogen,Urine <2.0 mg/dL (<2.0)
== END ==
LOC: LABPAT 11:46
PROVIDERS: ATTEND Orthopaedic Surgery Sports Medicine
DX: Z01.812 Encounter for preprocedural laboratory examination (principal)
CPT/HCPCS: 81003; 85025

== ENCOUNTER 2019-08-01 12:36 | Emergency (ER) | payer MEDICARE ==
[2019-08-01 12:51] VITALS: TEMP 97.8
[2019-08-01 13:58] LABS: Basophils % (A) 0 %; Eosinophils # (A) 0.2 k/uL (0-0.7); Eosinophils % (A) 4 %; HCT 40.3 % (39.0-53.0); Lymphocytes # (A) 0.8 k/uL (1.0-4.8); Lymphocytes % (A) 19 %; MCHC 32.3 g/dL (31.0-37.0); MCV 83.5 fL (80.0-100.0); Mean Platelet Volume 7.7; Monocytes # (A) 0.3 k/uL (0-1.0); Monocytes % (A) 8 %; Neutrophils # (A) 2.7 k/uL (1.3-7.7); Neutrophils % (A) 67 %; Platelet Count 132 k/uL (150-450); RBC 4.82 m/uL (4.30-5.90); WBC 4.1 k/uL (3.8-10.6)
[2019-08-01 14:08] LABS: Calcium 9.4 mg/dL (8.4-10.2); Potassium 4.3 mmol/L (3.5-5.1); Total Bilirubin 0.6 mg/dL (0.2-1.3); Total Protein 6.8 g/dL (6.3-8.2)
[2019-08-01 14:11] LABS: INR 0.9 (<1.2); Partial Thromboplastin Time 26.5 sec (22.0-30.0); Prothrombin Time 9.8 sec (9.0-12.0)
--- NOTE | 2019-08-01 15:05 | ED ---
General Adult HPI - General Chief complaint: Neuro Symptoms/Deficit Stated complaint: weakness/lightheaded Time Seen by Provider: 08/01/19 12:45 Source: patient Mode of arrival: wheelchair Limitations: no limitations - History of Present Illness Initial comments: The patient is a 78-year-old male with past history of coronary artery disease with bypass grafting, aortic and mitral valve replacement and hyperlipidemia who presents to the emergency room with several complaints. He states that since Saturday he has had periodic episodes of presyncope, ataxia, left-sided weakness and vision changes. He states the symptoms last anywhere from several minutes to a few hours and will spontaneously resolve. Yesterday he was at the grocery store when he felt weakness in his left leg. [place] as if it was going to buckle beneath him and he had no control over movement. He also felt off balance. States that he had to lean over the cart until his symptoms improved. Reports that he woke up this morning and had persistence of his symptoms. Admits that they are getting worse. He feels palpitations. He has difficulty walking due to to being off balance. Reports continued subjective weakness in his left leg. Denies left arm weakness. No current confusion or speech difficulties per the however she states in the past he has had episodes where he will have difficulty finding his words or with recall. The patient also reports to associated shortness of breath without chest pain. Denies any abdominal pain or changes in his bowel or bladder habits. No fevers or chills. Denies any headaches. No recent blunt head trauma. No history of CVA or TIA in the past. He is not on any anticoagulation. There are no alleviating, precipitating or modifying factors - Related Data Home Medications Medication Instructions Recorded Confirmed Lovastatin [Mevacor] 20 mg PO MOWEFR 08/19/15 11/01/16 diphenhydrAMINE HCL [Benadryl] 50 mg PO HS 08/19/15 11/01/16 Furosemide [Lasix] 40 mg PO DAILY 06/05/16 11/01/16 Hydrocortisone [Cortef] 5 mg PO DAILY@1600 06/05/16 11/01/16 Hydrocortisone [Cortef] 20 mg PO QAM 06/05/16 11/01/16 Cholecalciferol [Vitamin D3 (25 5,000 unit PO DAILY 09/26/16 11/01/16 Mcg = 1000 Iu)] Cyclobenzaprine [Flexeril] 5 mg PO BID PRN 09/26/16 11/01/16 Ferrous Sulfate [Iron (65 MG 325 mg PO DAILY 09/26/16 11/01/16 Elemental)] Potassium Gluconate 595 mg PO DAILY 09/26/16 11/01/16 Sildenafil Citrate [Viagra] 100 mg PO DAILY PRN 09/26/16 11/01/16 Temazepam [Restoril] 15 mg PO HS PRN 09/26/16 11/01/16 Ubidecarenone [Co Q-10] 200 mg PO MOWEFR 09/26/16 11/01/16 traMADol HCL [Ultram] 50 mg PO Q6H PRN 09/26/16 11/01/16 Tamsulosin [Flomax] 0.4 mg PO HS 11/01/16 11/01/16 Previous Rx's Medication Instructions Recorded Aspirin 325 mg PO BID #60 tab 11/02/16 Sennosides-Docusate Sodium 2 tab PO DAILY #30 tablet 11/02/16 [Senokot-S] Acetaminophen Tab [Tylenol] 500 mg PO Q6HR PRN #0 11/04/16 Allergies Allergy/AdvReac Type Severity Reaction Status Date / Time codeine Allergy Hallucinati Verified 08/01/19 12:51 ons hydrocodone [From [place]] AdvReac Hallucinati Verified 08/01/19 12:51 ons morphine AdvReac arm pham Verified 08/01/19 12:51 and becomes beligerant Review of Systems ROS Statement: Those systems with pertinent positive or pertinent negative responses have been documented in the HPI. ROS Other: All systems not noted in ROS Statement are negative. Past Medical History Past Medical History: Coronary Artery Disease (CAD), GERD/Reflux, Hyperlipidemia, Myocardial Infarction (IA), Osteoarthritis (OA), Pneumonia, Prostate Disorder Additional Past Medical History / Comment(s): polymyalgia rheumatica, "silent migraines-gets blurry vision", hx ulcer, anemia, "precancer lesion", surgery was rescheduled due to an inflammed right foot-now resolved & recent cold & sore throat-just finished antibiotics Last Myocardial Infarction Date:: 2013 History of Any Multi-Drug Resistant Organisms: None Reported Past Surgical History: Cardiac Valve Replacement, Coronary Bypass/CABG, Heart Catheterization, Tonsillectomy Additional Past Surgical History / Comment(s): rt elbow surgery, cataracts, open heart surgery- AORTIC VALVE AND MITRAL VALVE & double bypass 06-07-16 TOTAL LT KNEE Past Anesthesia/Blood Transfusion Reactions: Motion Sickness Additional Past Anesthesia/Blood Transfusion Reaction / Comment(s): motion sickness as child Past Psychological History: No Psychological Hx Reported Smoking Status: Former smoker Past Alcohol Use History: Occasional Past Drug Use History: None Reported - Past Family History Brother(s) Family Medical History: No Reported History Mother Family Medical History: No Reported History Additional Family Medical History / Comment(s): BORN IN [facility], SMOKED MOST OF HER ADULT LIFE- FROM OLD AGE Father Family Medical History: Cancer General Exam Limitations: no limitations General appearance: alert, in no apparent distress Head exam: Present: atraumatic, normocephalic, normal inspection Eye exam: Present: normal appearance, PERRL, EOMI. Absent: scleral icterus, conjunctival injection, periorbital swelling ENT exam: Present: normal exam, mucous membranes moist Neck exam: Present: normal inspection. Absent: tenderness, meningismus, lymphadenopathy Respiratory exam: Present: normal lung sounds bilaterally. Absent: respiratory distress, wheezes, rales, rhonchi, stridor Cardiovascular Exam: Present: regular rate, normal rhythm, systolic murmur. Absent: diastolic murmur, rubs, gallop, clicks GI/Abdominal exam: Present: soft, normal bowel sounds. Absent: distended, tenderness, guarding, rebound, rigid Extremities exam: Present: normal inspection, full ROM, normal capillary refill. Absent: tenderness, pedal edema, joint swelling, calf tenderness Back exam: Present: normal inspection Neurological exam: Present: alert, oriented X3, CN II-XII intact Psychiatric exam: Present: normal affect, normal mood Skin exam: Present: warm, dry, intact, normal color. Absent: rash Course Vital Signs 08/01/19 08/01/19 08/01/19 12:48 13:14 13:30 Temperature 97.8 F Pulse Rate 63 60 61 Respiratory 18 13 13 Rate Blood Pressure 156/73 151/79 O2 Sat by Pulse 95 96 98 Oximetry 08/01/19 08/01/19 08/01/19 14:00 14:30 14:35 Temperature Pulse Rate 59 L 53 L 53 L Respiratory 16 16 16 Rate Blood Pressure 147/78 139/80 139/80 O2 Sat by Pulse 97 99 99 Oximetry 08/01/19 08/01/19 08/01/19 15:00 15:30 16:00 Temperature Pulse Rate 53 L 52 L Respiratory 12 13 Rate Blood Pressure 135/72 143/79 146/85 O2 Sat by Pulse 98 97 Oximetry 08/01/19 08/01/19 08/01/19 16:30 17:00 17:18 Temperature Pulse Rate 54 L 55 L 55 L Respiratory 18 18 18 Rate Blood Pressure 145/75 146/75 146/75 O2 Sat by Pulse 98 Oximetry 08/01/19 17:49 Temperature 97.8 F Pulse Rate 55 L Respiratory 18 Rate Blood Pressure 146/75 O2 Sat by Pulse 98 Oximetry EKG Findings - EKG Comments: EKG Findings:: EKG demonstrates a sinus rhythm with first-degree AV block. Rate of 61. CA 276. QRS 146. QTC of 440. There is right bundle branch block present. This is compared patient's previous EKG and was present Medical Decision Making - Medical Decision Making Upon arrival the patient was placed into room 5. A thorough history and physical exam was performed. As the patient symptoms began on Saturday and NIH i s 0 at this time, a code stroke was not activated. He was hooked to continuous pulse ox and cardiac monitoring. A 12-lead EKG was performed. Laboratory studies were conducted. Labs are remarkable for a platelet count of 132. BNP mildly elevated at 781. Chest x-ray demonstrates chronic-appearing changes without acute cardiopulmonary process. CT brain without contrast demonstrates small areas of cortical encephalomalacia right frontal parietal junction area. CT angiography of the brain demonstrates severe proximal ICA stenosis on the right secondary to atherosclerotic change. 50% proximal left ICA stenosis. Severe focal narrowing of the proximal V4 segment right vertebral artery and m oderate focal narrowing of the proximal V4 segment left vertebral artery. Moderate irreguar atherosclerotic narrowing distal right ICA. No large vessel intracranial arterial occlusion or aneurysmal change. I discussed results with the patient. I discussed the diagnosis, differential and treatment options. Because the patient's severe ICA stenosis with reported strokelike symptoms I did recommend hospitalization. The patient will require a neurologic consult and therefore the patient will be transferred to [facility]. I discussed the case with Dr. Franco who accepted transfer. Patient will go by ambulance. COBRA forms were filled out and the patient is awaiting transfer - Lab Data Result diagrams: 08/01/19 13:20 08/01/19 13:20 Lab Results 08/01/19 08/01/19 08/01/19 Range/Units 13:20 13:20 13:20 WBC 4.1 (3.8-10.6) k/uL RBC 4.82 (4.30-5.90) m/uL Hgb 13.0 (13.0-17.5) gm/dL Hct 40.3 (39.0-53.0) % MCV 83.5 (80.0-100.0) fL MCH 27.0 (25.0-35.0) pg MCHC 32.3 (31.0-37.0) g/dL RDW 15.0 (11.5-15.5) % Plt Count 132 L (150-450) k/uL Neutrophils % 67 % Lymphocytes % 19 % Monocytes % 8 % Eosinophils % 4 % Basophils % 0 % Neutrophils # 2.7 (1.3-7.7) k/uL Lymphocytes # 0.8 L (1.0-4.8) k/uL Monocytes # 0.3 (0-1.0) k/uL Eosinophils # 0.2 (0-0.7) k/uL Basophils # 0.0 (0-0.2) k/uL PT 9.8 (9.0-12.0) sec INR 0.9 (<1.2) APTT 26.5 (22.0-30.0) sec Sodium 140 (137-145) mmol/L Potassium 4.3 (3.5-5.1) mmol/L Chloride 105 (98-107) mmol/L Carbon Dioxide 30 (22-30) mmol/L Anion Gap 5 mmol/L BUN 22 H (9-20) mg/dL Creatinine 1.23 (0.66-1.25) mg/dL Est GFR (CKD-EPI)AfAm 65 (>60 ml/min/1.73 sqM) Est GFR (CKD-EPI)NonAf 56 (>60 ml/min/1.73 sqM) Glucose 107 H (74-99) mg/dL Plasma Lactic Acid Vitaly (0.7-2.0) mmol/L Calcium 9.4 (8.4-10.2) mg/dL Total Bilirubin 0.6 (0.2-1.3) mg/dL AST 29 (17-59) U/L ALT 17 (4-49) U/L Alkaline Phosphatase 56 (38-126) U/L Troponin I (0.000-0.034) ng/mL NT-Pro-B Natriuret Pep pg/mL Total Protein 6.8 (6.3-8.2) g/dL Albumin 4.0 (3.5-5.0) g/dL 08/01/19 08/01/19 08/01/19 Range/Units 13:20 13:20 15:33 WBC (3.8-10.6) k/uL RBC (4.30-5.90) m/uL Hgb (13.0-17.5) gm/dL Hct (39.0-53.0) % MCV (80.0-100.0) fL MCH (25.0-35.0) pg MCHC (31.0-37.0) g/dL RDW (11.5-15.5) % Plt Count (150-450) k/uL Neutrophils % % Lymphocytes % % Monocytes % % Eosinophils % % Basophils % % Neutrophils # (1.3-7.7) k/uL Lymphocytes # (1.0-4.8) k/uL Monocytes # (0-1.0) k/uL Eosinophils # (0-0.7) k/uL Basophils # (0-0.2) k/uL PT (9.0-12.0) sec INR (<1.2) APTT (22.0-30.0) sec Sodium (137-145) mmol/L Potassium (3.5-5.1) mmol/L Chloride (98-107) mmol/L Carbon Dioxide (22-30) mmol/L Anion Gap mmol/L BUN (9-20) mg/dL Creatinine (0.66-1.25) mg/dL Est GFR (CKD-EPI)AfAm (>60 ml/min/1.73 sqM) Est GFR (CKD-EPI)NonAf (>60 ml/min/1.73 sqM) Glucose (74-99) mg/dL Plasma Lactic Acid Vitaly 0.8 (0.7-2.0) mmol/L Calcium (8.4-10.2) mg/dL Total Bilirubin (0.2-1.3) mg/dL AST (17-59) U/L ALT (4-49) U/L Alkaline Phosphatase (38-126) U/L Troponin I 0.014 (0.000-0.034) ng/mL NT-Pro-B Natriuret Pep 781 pg/mL Total Protein (6.3-8.2) g/dL Albumin (3.5-5.0) g/dL Disposition Clinical Impression: Left leg weakness, Thrombocytopenia, S/P AVR (aortic valve replacement), S/P CABG (coronary artery bypass graft), S/P mitral valve repair Disposition: OTHER INSTITUTION NOT DEFINED Condition: Stable Is patient prescribed a controlled substance at d/c from ED?: No Referrals: Sergio Gayle MD [Primary Care Provider] - 1-2 days - Out of Hospital Transfer - Req. Specs Out of Hospital Transfer - Requested Specifics: Other Emergency Center ([facility])
--- NOTE | 2019-08-01 15:58 | CT ---
EXAMINATION TYPE: CT brain wo con DATE OF EXAM: 08/01/2019 COMPARISON: None HISTORY: 78-year-old male neurologic deficits, acute, stroke suspected, Left leg weakness TECHNIQUE: Examination was done in axial plane without intravenous contrast. Coronal and sagittal r econstructions performed. CT DLP: 1101.8 mGycm Automated exposure control for dose reduction was used. FINDINGS: There is no evidence of acute intracranial hemorrhage, acute ischemic changes, mass, mass-effect, or extra-axial fluid collection. There is no effacement of cerebral sulci or basal subarachnoid cister ns. There is no hydrocephalus. There is no midline shift. Lawler-white matter distinction is preserv ed. Atherosclerotic calcifications within the proximal V4 segment vertebral arteries and mild within the carotid siphons. Moderate patchy white matter hypodensities in both cerebral hemispheres. Small area of cortical encep halomalacia right frontoparietal junction suggesting area of old cortical infarct. Mucosal thickening left maxillary sinus partially visualized. Mastoid air cells are well pneumatized. Orbits and globes are intact. IMPRESSION: No acute intracranial abnormality seen. Moderate patchy changes of chronic small vessel ischemic dise ase.
--- NOTE | 2019-08-01 16:07 | XR ---
EXAMINATION TYPE: XR chest 2V DATE OF EXAM: 08/01/2019 COMPARISON: 11/29/2014 HISTORY: 78-year-old male dizzy, weakness, altered mental status TECHNIQUE: PA and lateral views FINDINGS: Median sternotomy wires are present. Annuloplasty rings. Heart upper limits of normal in size. Mild i nterstitial prominence has a chronic appearance. Strandy left basilar atelectasis. No consolidation o r pleural effusion. IMPRESSION: Chronic appearing changes without acute cardiopulmonary process.
--- NOTE | 2019-08-01 16:21 | CT ---
EXAMINATION TYPE: CT angio head neck DATE OF EXAM: 08/01/2019 COMPARISON: Brain same day HISTORY: 78-year-old male Left leg weakness TECHNIQUE: Contiguous axial scanning of the head and neck performed with IV Contrast, patient injecte d with 65 mL of Isovue 370. Coronal/sagittal MIP reconstructions performed. 3-D reconstructions gener ated on a dedicated independent workstation. CT DLP: 599.2 mGycm Automated exposure control for dose reduction was used. FINDINGS: NECK: Mildly enlarged caliber to the main right and left pulmonary arteries measuring up to 2.6 cm suggest underlying pulmonary hypertension. Mild atherosclerotic arch calcifications. There is bovine configuration to the aortic arch. Mild atherosclerotic calcification at the origin of the right vertebral artery. Additional scattered mild atherosclerotic calcification throughout the V3 segment right vertebral artery. Moderate atherosclerotic change at the right carotid bifurcation. Right common carotid artery is plasencia nt. More extensive atherosclerotic change proximal right ICA with a severe focal atherosclerotic narr owing located 1.9 cm below the angle of the mandible. The bifurcation itself is located 3.5 cm below the angle of the mandible. Some eccentric plaque within the upper left common carotid artery without significant stenosis. Moder ate atherosclerotic change of the left carotid bifurcation with mild, just under 50% narrowing at the left carotid bulb. There is prominent beam hardening artifact here which makes assessment difficult on the 3-D reconstruction. HEAD: Severe focal atherosclerotic narrowing involving the proximal V4 segment right vertebral artery. Mode rate focal narrowing proximal C4 segment left vertebral artery. The basilar artery and remainder of the posterior circulation appear patent. Mild atherosclerotic calcifications within the right carotid siphon with moderate focal atherosclerot ic narrowing just prior to the carotid terminus on axial image 99. Focal narrowing M1 segment right M CA, axial image 94, not confirmed on the 3-D reconstructions. There are mild atherosclerotic narrowin g supraclinoid left ICA. Remainder of the anterior circulation is patent. No aneurysmal change is seen. IMPRESSION: NECK: 1. SEVERE PROXIMAL ICA STENOSIS ON THE RIGHT SECONDARY TO ATHEROSCLEROTIC CHANGE. 2. MILD, JUST UNDER 50% PROXIMAL LEFT ICA STENOSIS. 3. MILD ATHEROSCLEROTIC NARROWING AT THE ORIGIN OF THE RIGHT VERTEBRAL ARTERY. HEAD: 1. SEVERE FOCAL ATHEROSCLEROTIC NARROWING PROXIMAL V4 SEGMENT RIGHT VERTEBRAL ARTERY AND MODERATE FOC AL NARROWING PROXIMAL V4 SEGMENT LEFT VERTEBRAL ARTERY. 2. MODERATE IRREGULAR ATHEROSCLEROTIC NARROWING DISTAL RIGHT ICA JUST PRIOR TO THE CAROTID TERMINUS. 3. MILD ATHEROSCLEROTIC NARROWING SUPRACLINOID LEFT ICA. 4. NO LARGE VESSEL INTRACRANIAL ARTERIAL OCCLUSION OR ANEURYSMAL CHANGE.
[2019-08-01] MEDS ORDERED: ATORVASTATIN 40 MG TAB PO STA (17:12)
[2019-08-01] MEDS ORDERED: ASPIRIN 325 MG TAB PO STA (17:12)
[2019-08-01 17:17] VITALS: BP 146/75; PULSE 55; RESP 18
== END 2019-08-01 17:49 | disposition short-term general hospital (02) ==
LOC: EC 12:36
DX: D69.6 Thrombocytopenia, unspecified (principal); R29.898 Other symptoms and signs involving the musculoskeletal system; Z95.1 Presence of aortocoronary bypass graft; Z95.2 Presence of prosthetic heart valve; Z98.890 Other specified postprocedural states; R79.89 Other specified abnormal findings of blood chemistry; R91.8 Other nonspecific abnormal finding of lung field; G93.89 Other specified disorders of brain; I65.23 Occlusion and stenosis of bilateral carotid arteries; I65.03 Occlusion and stenosis of bilateral vertebral arteries; R01.1 Cardiac murmur, unspecified; H53.8 Other visual disturbances; R27.0 Ataxia, unspecified; R06.02 Shortness of breath; I25.10 Atherosclerotic heart disease of native coronary artery without angina pectoris; E78.5 Hyperlipidemia, unspecified; I25.2 Old myocardial infarction; M19.90 Unspecified osteoarthritis, unspecified site; D64.9 Anemia, unspecified; Z87.891 Personal history of nicotine dependence; Z88.5 Allergy status to narcotic agent; Z79.52 Long term (current) use of systemic steroids; Z79.899 Other long term (current) drug therapy; Z87.01 Personal history of pneumonia (recurrent); Z96.652 Presence of left artificial knee joint
CPT/HCPCS: 36415; 93005; 83880; 80053; 83605; 84484; 85025; 85610; 85730; 71046; 70496; 70450; 70498; 99285; Q9967

== ENCOUNTER 2019-09-29 10:36 | Inpatient (IN) | payer MEDICARE ==
[2019-09-29 11:29] LABS: Basophils % (A) 1 %; Eosinophils # (A) 0.2 k/uL (0-0.7); Eosinophils % (A) 5 %; HCT 40.1 % (39.0-53.0); HGB 12.9 gm/dL (13.0-17.5); Lymphocytes # (A) 0.9 k/uL (1.0-4.8); Lymphocytes % (A) 22 %; MCH 26.9 pg (25.0-35.0); MCHC 32.1 g/dL (31.0-37.0); MCV 83.8 fL (80.0-100.0); Mean Platelet Volume 7.9; Monocytes # (A) 0.2 k/uL (0-1.0); Monocytes % (A) 6 %; Neutrophils # (A) 2.7 k/uL (1.3-7.7); Neutrophils % (A) 64 %; Platelet Count 144 k/uL (150-450); RBC 4.78 m/uL (4.30-5.90); RDW 15.2 % (11.5-15.5); WBC 4.1 k/uL (3.8-10.6)
--- NOTE | 2019-09-29 11:32 | ED ---
General Adult HPI - General Chief complaint: Arrhythmia/Palpitations Stated complaint: lightheaded, dizziness Time Seen by Provider: 09/29/19 10:40 Source: patient, family, RN notes reviewed Mode of arrival: ambulatory Limitations: no limitations - History of Present Illness Initial comments: Is a 79-year-old male with a history of carotid artery disease who is scheduled had a carotid endarterectomy on his right carotid artery and a 26 of this month who presents with complaints of lightheadedness and dizziness and generalized weakness today. She was feeling okay last night is to start this morning. He also states his left leg felt a little bit weak but he states she has no problem at this time. He also complains of an occipital headache mostly on the right no trauma reported no fevers chills nausea vomiting sweats no other symptoms - Related Data Home Medications Medication Instructions Recorded Confirmed diphenhydrAMINE HCL [Benadryl] 50 mg PO HS 08/19/15 09/29/19 Cholecalciferol [Vitamin D3 (25 5,000 unit PO DAILY 09/26/16 09/29/19 Mcg = 1000 Iu)] traMADol HCL [Ultram] 50 mg PO DAILY PRN 09/26/16 09/29/19 Tamsulosin [Flomax] 0.8 mg PO W/SUPPER 11/01/16 09/29/19 Aspirin 81 mg PO W/SUPPER 09/29/19 09/29/19 Clopidogrel Bisulfate [Plavix] 75 mg PO DAILY 09/29/19 09/29/19 Furosemide [Lasix] 20 mg PO DAILY 09/29/19 09/29/19 Pravastatin Sodium [Pravachol] 40 mg PO HS 09/29/19 09/29/19 Previous Rx's Medication Instructions Recorded Acetaminophen Tab [Tylenol] 500 mg PO Q6HR PRN #0 11/04/16 Allergies Allergy/AdvReac Type Severity Reaction Status Date / Time codeine AdvReac Hallucinati Verified 09/29/19 12:19 ons hydrocodone [From [place]] AdvReac Hallucinati Verified 09/29/19 12:19 ons morphine AdvReac arm pham Verified 09/29/19 12:19 and becomes beligerant Review of Systems ROS Statement: Those systems with pertinent positive or pertinent negative responses have been documented in the HPI. ROS Other: All systems not noted in ROS Statement are negative. Past Medical History Past Medical History: Coronary Artery Disease (CAD), CVA/TIA, GERD/Reflux, Hyper lipidemia, Myocardial Infarction ([place]), Osteoarthritis (OA), Pneumonia, Prostate Disorder Additional Past Medical History / Comment(s): polymyalgia rheumatica, "silent migraines-gets blurry vision", hx ulcer, anemia, "precancer lesion", surgery was rescheduled due to an inflammed right foot-now resolved & recent cold & sore throat-just finished antibiotics Last Myocardial Infarction Date:: 2013 History of Any Multi-Drug Resistant Organisms: None Reported Past Surgical History: Cardiac Valve Replacement, Coronary Bypass/CABG, Heart Catheterization, Tonsillectomy Additional Past Surgical History / Comment(s): rt elbow surgery, cataracts, open heart surgery- AORTIC VALVE AND MITRAL VALVE & double bypass 2014, 06-07-16 TOTAL LT KNEE Past Anesthesia/Blood Transfusion Reactions: Motion Sickness Additional Past Anesthesia/Blood Transfusion Reaction / Comment(s): motion sickness as child Past Psychological History: No Psychological Hx Reported Smoking Status: Former smoker Past Alcohol Use History: Occasional Past Drug Use History: None Reported - Past Family History Brother(s) Family Medical History: No Reported History Mother Family Medical History: No Reported History Additional Family Medical History / Comment(s): B[place], SMOKED MOST OF HER ADULT LIFE- FROM OLD AGE Father Family Medical History: Cancer General Exam - General Exam Comments Initial Comments: This is a well-developed well-nourished awake alert oriented 3 male Limitations: no limitations General appearance: alert, in no apparent distress Head exam: Present: atraumatic, normocephalic, normal inspection Eye exam: Present: normal appearance, PERRL, EOMI. Absent: scleral icterus, conjunctival injection, periorbital swelling ENT exam: Present: mucous membranes dry Neck exam: Present: normal inspection, full ROM, other (No stridor JVD or bruits). Absent: tenderness, meningismus, lymphadenopathy Respiratory exam: Present: normal lung sounds bilaterally. Absent: respiratory distress, wheezes, rales, rhonchi, stridor Cardiovascular Exam: Present: regular rate, normal rhythm, normal heart sounds. Absent: systolic murmur, diastolic murmur, rubs, gallop, clicks GI/Abdominal exam: Present: soft, normal bowel sounds. Absent: distended, tenderness, guarding, rebound, rigid Extremities exam: Present: normal inspection, full ROM, normal capillary refill. Absent: tenderness, pedal edema, joint swelling, calf tenderness Back exam: Present: normal inspection Neurological exam: Present: alert, oriented X3, CN II-XII intact Psychiatric exam: Present: normal affect, normal mood Skin exam: Present: warm, dry, intact, normal color. Absent: rash Course Vital Signs 09/29/19 09/29/19 09/29/19 10:40 10:52 11:00 Temperature 98.1 F Pulse Rate 60 57 L Respiratory 18 16 16 Rate Blood Pressure 140/72 150/77 O2 Sat by Pulse 98 96 Oximetry 09/29/19 09/29/19 09/29/19 12:00 13:00 13:25 Temperature Pulse Rate 55 L 56 L 30 L Respiratory 19 16 16 Rate Blood Pressure 151/79 150/79 O2 Sat by Pulse 96 96 98 Oximetry 09/29/19 09/29/19 09/29/19 14:00 15:00 16:00 Temperature Pulse Rate 59 L 59 L 60 Respiratory 16 16 14 Rate Blood Pressure 152/89 145/61 143/75 O2 Sat by Pulse 98 96 96 Oximetry - Reevaluation(s) Reevaluation #1: 09/29/19 15:08 I did reevaluate patient several occasions he has no evidence of neurological deficits he did have episodes however is heart rate dropping down into the 30s. He does maintain his blood pressure and mentation. Medical Decision Making - Medical Decision Making I did discuss case with Dr. Cardona and with Dr. Navarro who did come in and see the patient he will be admitted for evaluation of bradycardia - Lab Data Result diagrams: 09/29/19 10:55 09/29/19 10:55 Lab Results 09/29/19 09/29/19 09/29/19 Range/Units 10:55 10:55 10:55 WBC 4.1 (3.8-10.6) k/uL RBC 4.78 (4.30-5.90) m/uL Hgb 12.9 L (13.0-17.5) gm/dL Hct 40.1 (39.0-53.0) % MCV 83.8 (80.0-100.0) fL MCH 26.9 (25.0-35.0) pg MCHC 32.1 (31.0-37.0) g/dL RDW 15.2 (11.5-15.5) % Plt Count 144 L (150-450) k/uL Neutrophils % 64 % Lymphocytes % 22 % Monocytes % 6 % Eosinophils % 5 % Basophils % 1 % Neutrophils # 2.7 (1.3-7.7) k/uL Lymphocytes # 0.9 L (1.0-4.8) k/uL Monocytes # 0.2 (0-1.0) k/uL Eosinophils # 0.2 (0-0.7) k/uL Basophils # 0.0 (0-0.2) k/uL PT 10.2 (9.0-12.0) sec INR 1.0 (<1.2) Sodium 138 (137-145) mmol/L Potassium 4.4 (3.5-5.1) mmol/L Chloride 105 (98-107) mmol/L Carbon Dioxide 24 (22-30) mmol/L Anion Gap 9 mmol/L BUN 29 H (9-20) mg/dL Creatinine 1.13 (0.66-1.25) mg/dL Est GFR (CKD-EPI)AfAm 71 (>60 ml/min/1.73 sqM) Est GFR (CKD-EPI)NonAf 61 (>60 ml/min/1.73 sqM) Glucose 123 H (74-99) mg/dL Calcium 9.6 (8.4-10.2) mg/dL Magnesium 1.9 (1.6-2.3) mg/dL Total Bilirubin 0.6 (0.2-1.3) mg/dL AST 27 (17-59) U/L ALT 16 (4-49) U/L Alkaline Phosphatase 57 (38-126) U/L Troponin I (0.000-0.034) ng/mL Total Protein 6.9 (6.3-8.2) g/dL Albumin 4.2 (3.5-5.0) g/dL TSH (0.465-4.680) mIU/L Urine Color Urine Appearance (Clear) Urine pH (5.0-8.0) Ur Specific Chalmers (1.001-1.035) Urine Protein (Negative) Urine Glucose (UA) (Negative) Urine Ketones (Negative) Urine Blood (Negative) Urine Nitrite (Negative) Urine Bilirubin (Negative) Urine Urobilinogen (<2.0) mg/dL Ur Leukocyte Esterase (Negative) 09/29/19 09/29/19 09/29/19 Range/Units 10:55 13:15 15:26 WBC (3.8-10.6) k/uL RBC (4.30-5.90) m/uL Hgb (13.0-17.5) gm/dL Hct (39.0-53.0) % MCV (80.0-100.0) fL MCH (25.0-35.0) pg MCHC (31.0-37.0) g/dL RDW (11.5-15.5) % Plt Count (150-450) k/uL Neutrophils % % Lymphocytes % % Monocytes % % Eosinophils % % Basophils % % Neutrophils # (1.3-7.7) k/uL Lymphocytes # (1.0-4.8) k/uL Monocytes # (0-1.0) k/uL Eosinophils # (0-0.7) k/uL Basophils # (0-0.2) k/uL PT (9.0-12.0) sec INR (<1.2) Sodium (137-145) mmol/L Potassium (3.5-5.1) mmol/L Chloride (98-107) mmol/L Carbon Dioxide (22-30) mmol/L Anion Gap mmol/L BUN (9-20) mg/dL Creatinine (0.66-1.25) mg/dL Est GFR (CKD-EPI)AfAm (>60 ml/min/1.73 sqM) Est GFR (CKD-EPI)NonAf (>60 ml/min/1.73 sqM) Glucose (74-99) mg/dL Calcium (8.4-10.2) mg/dL Magnesium (1.6-2.3) mg/dL Total Bilirubin (0.2-1.3) mg/dL AST (17-59) U/L ALT (4-49) U/L Alkaline Phosphatase (38-126) U/L Troponin I 0.013 (0.000-0.034) ng/mL Total Protein (6.3-8.2) g/dL Albumin (3.5-5.0) g/dL TSH 0.787 (0.465-4.680) mIU/L Urine Color Light Yellow Urine Appearance Clear (Clear) Urine pH 5.5 (5.0-8.0) Ur Specific [place]mers 1.009 (1.001-1.035) Urine Protein Negative (Negative) Urine Glucose (UA) Negative (Negative) Urine Ketones Negative (Negative) Urine Blood Negative (Negative) Urine Nitrite Negative (Negative) Urine Bilirubin Negative (Negative) Urine Urobilinogen <2.0 (<2.0) mg/dL Ur Leukocyte Esterase Negative (Negative) - EKG Data -: EKG Interpreted by Me (Sinus rhythm first-degree AV block rate 61. Interval to 90 QRS 140 QT sinc) EKG Comments: Initial EKG sinus bradycardia 59 for screening AV block UT interval 298 QRS duration 142 QT since QTC 444/439 with a CVA sure bundle-branch block minimal voltage criteria for LVH. Repeat done shortly after the first first 3 AV block rate 61 appear interval to 90 QRS duration 140 QT since QTC 442/444 some her configuration. - Radiology Data Radiology results: report reviewed (I did review the imaging and report there is evidence of), image reviewed Disposition Clinical Impression: Syncope, Bradycardia with 31-40 beats per minute Disposition: ADMITTED IP TO THIS [facility] Condition: Fair Referrals: Sergio Gayle MD [Primary Care Provider] - 1-2 days
[2019-09-29 11:37] LABS: Albumin 4.2 g/dL (3.5-5.0); Calcium 9.6 mg/dL (8.4-10.2); Magnesium 1.9 mg/dL (1.6-2.3); Potassium 4.4 mmol/L (3.5-5.1); Total Bilirubin 0.6 mg/dL (0.2-1.3); Total Protein 6.9 g/dL (6.3-8.2)
[2019-09-29 11:39] LABS: Prothrombin Time 10.2 sec (9.0-12.0)
--- NOTE | 2019-09-29 11:40 | CT ---
EXAMINATION TYPE: CT brain wo con DATE OF EXAM: 09/29/2019 COMPARISON: 08/01/2019 HISTORY: Dizziness CT DLP: 1109.4 mGycm Automated exposure control for dose reduction was used. TECHNIQUE: CT scan of the head is performed without contrast. FINDINGS: There is no acute intracranial hemorrhage or midline shift identified. There is diffuse v entricular and sulcal prominence consistent with diffuse age-related cerebral atrophy. There is low- attenuation in the periventricular white matter consistent with chronic small vessel ischemic change. More focal areas of hypoattenuation in the frontal lobes and parietal lobes within the deep white ma tter may be from remote cortical infarcts. Incidentally noted calcification along the right frontal l obe that appears extra-axial, benign. Old lacunar injury of the right frontoparietal junction near th e skull vertex. The globes are intact. Severe high density mucosal thickening of the left maxillary s inus and 1.3 cm polyp versus mucosal retention cysts of the right maxillary sinus. Undulation of the nasal septum. Scant mucosal thickening in the ethmoid sinuses. Remaining paranasal sinuses and mastoi d air cells are well aerated. IMPRESSION: 1. No acute intracranial hemorrhage or midline shift. 2. Diffuse age-related cerebral atrophy and chronic small vessel ischemic change noted. Multiple old lacunar injuries. 3. Severe left maxillary sinusitis with internal high density suggesting atypical etiology such as fu ngal disease or hemorrhage. Right maxillary polyp versus mucosal retention cyst.
[2019-09-29 13:32] LABS: Appearance,Urine Clear (Clear); Bilirubin,Urine Negative (Negative); Blood,Urine Negative (Negative); Color,Urine Light Yellow; Glucose,Urine (UA) Negative (Negative); Ketones,Urine Negative (Negative); Leukocyte Esterase,Urine Negative (Negative); Nitrite,Urine Negative (Negative); PH, Urine 5.5 (5.0-8.0); Protein,Urine Negative (Negative); Specific Gravity,Urine 1.009 (1.001-1.035); Urobilinogen,Urine <2.0 mg/dL (<2.0)
[2019-09-29] MEDS ORDERED: ATROPINE SULFATE 0.1 MG/ML 10ML SYRINGE IV STA (13:48)
[2019-09-29] MEDS ORDERED: NALOXONE 0.4 MG/ML 1 ML VIAL IV PRN (15:13)
[2019-09-29] MEDS: TAMSULOSIN 0.4 MG CAP.ER.24H PO SCH (18:19)
[2019-09-29] MEDS: ASPIRIN 81 MG PO SCH (18:20)
[2019-09-29] MEDS: SODIUM CHLORIDE 0.9% 1,000 ML IV SCH ×2 (18:20→19:57)
[2019-09-29] MEDS: PRAVASTATIN SODIUM 40 MG TAB PO SCH (19:57)
[2019-09-29] MEDS: diphenhydrAMINE 25 MG CAP PO SCH (19:57)
[2019-09-29] MEDS: traMADol 50 MG TAB PO PRN (21:55)
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
[2019-09-30] MEDS: ACETAMINOPHEN TAB 500 MG TAB PO PRN (06:14)
--- NOTE | 2019-09-30 08:06 | ECHOF ---
Referral Reason:avr MEASUREMENTS -------- HEIGHT: 172.7 cm WEIGHT: 93.0 kg BP: 152/89 RVIDd: 3.5 cm (< 3.3) IVSd: 1.6 cm (0.6 - 1.1) LVIDd: 4.8 cm (3.9 - 5.3) LVPWd: 1.5 cm (0.6 - 1.1) IVSs: 2.0 cm LVIDs: 3.1 cm LVPWs: 1.7 cm LA Diam: 5.2 cm (2.7 - 3.8) LAESV Index (A-L): 51.39 ml/m Ao Diam: 3.7 cm (2.0 - 3.7) AV Cusp: 2.0 cm (1.5 - 2.6) MV EXCURSION: 18.048 mm (> 18.000) MV EF SLOPE: 39 mm/s (70 - 150) EPSS: 0.4 cm MV E Phillip: 1.44 m/s MV DecT: 347 ms MV A Phillip: 1.17 m/s MV E/A Ratio: 1.23 AV maxP.15 mmHg AV meanP.83 mmHg RAP: 5.00 mmHg RVSP: 42.90 mmHg TAPSE: 13.84 mm FINDINGS -------- Sinus rhythm. This was a technically good study. The left ventricular size is normal. There is moderate concentric left ventricular hypertrophy. O verall left ventricular systolic function is normal with, an EF between 65 - 70 %. The right ventricle is mildly enlarged. LA is severely dilated >40 ml/m2 The right atrium is normal in size. Interatrial and interventricular septum intact. Peak/mean gradient across the Aortic Valve is 24.15mmHg / 10.83mmHg. Normally functioning bioprosth etic valve. The peak and mean MV gradients are 13.78mmHg 5.52mmHg as measured by doppler. Mild mitral stenosis. MV Repair. Mild tricuspid regurgitation present. There is mild pulmonary hypertension. The right ventricular systolic pressure, as measured by Doppler, is 42.90mmHg. Trace/mild (physiologic) pulmonic regurgitation. The aortic root size is normal. IVC Not well visulized. There is no pericardial effusion. CONCLUSIONS -------- 1. Sinus rhythm. 2. This was a technically good study. 3. The left ventricular size is normal. 4. There is moderate concentric left ventricular hypertrophy. 5. Overall left ventricular systolic function is normal with, an EF between 65 - 70 %. 6. The right ventricle is mildly enlarged. 7. LA is severely dilated >40 ml/m2 8. The right atrium is normal in size. 9. Interatrial and interventricular septum intact. 10. Peak/mean gradient across the Aortic Valve is 24.15mmHg / 10.83mmHg. 11. Normally functioning bioprosthetic valve. 12. The peak and mean MV gradients are 13.78mmHg 5.52mmHg as measured by doppler. 13. Mild mitral stenosis. 14. MV Repair. 15. Mild tricuspid regurgitation present. 16. There is mild pulmonary hypertension. 17. The right ventricular systolic pressure, as measured by Doppler, is 42.90mmHg. 18. Trace/mild (physiologic) pulmonic regurgitation. 19. The aortic root size is normal. 20. IVC Not well visulized. 21. There is no pericardial effusion. [employer] VAT TENDER: Tracie Miles RDCS
[2019-09-30] MEDS: CHOLECALCIFEROL 1,000 UNIT TAB PO SCH (09:32)
[2019-09-30] MEDS: CLOPIDOGREL 75 MG TAB PO SCH (09:33)
[2019-09-30] MEDS: FUROSEMIDE 20 MG TAB PO SCH (09:33)
[2019-09-30] MEDS: traMADol 50 MG TAB PO PRN (11:34)
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
[2019-09-30] MEDS ORDERED: ceFAZolin 1,000 MG in SODIUM CHLORIDE 0.9% IRRIGATIO 250 ML IRRIGATION ONE (11:53)
--- NOTE | 2019-09-30 13:53 | P.HPIM ---
History of Present Illness H&P Date: 09/30/19 Chief Complaint: Weakness, lightheadedness This is an 79-year-old male patient of Dr. Sergio Gayle and Dr. Christensen with past medical history of coronary artery disease status post 2 vessel to vessel CABG, aortic valve and mitral valve replacement in 2014, history of TIA, gastroesophageal reflux disease, hyperlipidemia, osteoarthritis, polymyalgia rheumatica. 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 Patient is scheduled for carotid surgery with Dr. Porter on October 21. Patient states on Saturday he was having symptoms whenever he walks that he was feeling weak and lightheaded. He stayed home over the weekend did not do very much. He states when he walked to the mailbox he was having significant difficulty with same symptoms. When he develops the symptoms he ends up slowing down or sitting down until they resolve. He denies having any chest pain or shortness of breath. He denies any symptoms when he is seated or lying down. He states he tried to call his vascular surgeon on Saturday and again Saturday to update him. Unfortunately, he was unable to reach him. At the time of this evaluation, patient is seated in bed and has no symptoms. He did walk with his nurse in the hallway and was feeling weak and lightheaded and heart rate was 35-40 range. He denied having any chest pain or shortness of breath during that episode. He denies having any syncopal episodes. He is complaining of a posterior headache in the occipital regions bilaterally. Patient found to have left-sided tenderness with possible splenomegaly. He denies having any abdominal pain, blood or tarry stools, he has been diagnosed with diverticulosis on his last colonoscopy which was approximate 5-6 years ago. He states he has been eating popcorn strawberries and berries recently. Patient came into [facility] emergency center for evaluation. Heart rate was running in the 50s and 60s in the emergency center, afebrile, blood pressure 140/72. WBC 4.1, hemoglobin 12.9, platelet count 144, INR 1.0, electrolytes within normal limits, BUN 29 creatinine 1.13, blood sugar 123, liver function tests within normal limits. Troponin 0.013, TSH 0.77, urinalysis negative. EKG is a first-degree AV block at a heart rate of 61. CAT scan of the brain showed no acute intracranial hemorrhage or midline shift. Diffuse age-related cerebral atrophy and chronic small vessel ischemic change. Multiple old lacunar injuries. Severe left maxillary sinusitis. Patient was found to have bradycardia and was admitted to the cardiac stepdown unit with cardiology consult requested. The patient is to be monitored overnight with plan for possible pacemaker tomorrow. Review of Systems Constitutional: Denies chills, Denies fatigue, Denies fever, Denies lethargy, Denies malaise, Denies poor appetite, Denies weight loss Eyes: denies blurred vision, denies pain Ears, nose, mouth and throat: Reports headache, Denies dysphagia, Denies nasal congestion, Denies nasal discharge, Denies vertigo Cardiovascular: Reports chest pain, Reports lightheadedness, Denies decreased exercise tolerance, Denies dyspnea on exertion, Denies shortness of breath, Denies syncope Respiratory: Denies cough, Denies cough with sputum, Denies dyspnea, Denies excessive sputum, Denies hemoptysis, Denies home oxygen, Denies respiratory infections, Denies wheezing Gastrointestinal: Denies abdominal pain, Denies loss of appetite, Denies nausea, Denies vomiting Genitourinary: Denies dysuria, Denies urinary retention Musculoskeletal: Denies frequent falls, Denies gait dysfunction, Denies muscle weakness, Denies myalgias Integumentary: Denies pruritus, Denies rash, Denies wounds Neurological: Denies change in mentation, Denies change in speech, Denies numbness, Denies weakness Psychiatric: Denies anxiety, Denies depression Endocrine: Denies fatigue, Denies weight change Past Medical History Past Medical History: Coronary Artery Disease (CAD), CVA/TIA, GERD/Reflux, Hyperlipidemia, Myocardial Infarction (DC), Osteoarthritis (OA), Pneumonia, Prostate Disorder Additional Past Medical History / Comment(s): polymyalgia rheumatica, "silent migraines-gets blurry vision", hx ulcer, anemia, "precancer lesion", surgery was rescheduled due to an inflammed right foot-now resolved & recent cold & sore throat-just finished antibiotics, multiple TIA's, occluded right carotid Last Myocardial Infarction Date:: 2013 History of Any Multi-Drug Resistant Organisms: None Reported Past Surgical History: Cardiac Valve Replacement, Coronary Bypass/CABG, Heart Catheterization, Tonsillectomy Additional Past Surgical History / Comment(s): rt elbow surgery, cataracts, open heart surgery- AORTIC VALVE AND MITRAL VALVE & double bypass 06-07-16 TOTAL LT KNEE Past Anesthesia/Blood Transfusion Reactions: Motion Sickness Additional Past Anesthesia/Blood Transfusion Reaction / Comment(s): motion sickness as child Past Psychological History: No Psychological Hx Reported Smoking Status: Former smoker Past Alcohol Use History: Occasional Additional Past Alcohol Use History / Comment(s): Smokes cigars occasionally - 2 CIGARS A DAY 20 YEARS. He drinks 2-3 drinks every Saturday and Saturday does have a history of heavy alcohol use in the past. No illicit drug use. Patient was at home with his . Past Drug Use History: None Reported - Past Family History Brother(s) Family Medical History: No Reported History Additional Family Medical History / Comment(s): Patient has 2 brothers that are living. One was Sjogren's and one has history of lung cancer. Mother Family Medical History: No Reported History Additional Family Medical History / Comment(s): BORN IN [facility], SMOKED MOST OF HER ADULT LIFE- FROM OLD AGE at age 83. Father Family Medical History: Cancer Additional Family Medical History / Comment(s): Father at age 77 with history of liver cancer, diabetes, smoking history. Sister(s) Additional Family Medical History / Comment(s): Patient has one half-sister at age 76 with history of smoking, COPD and TIA. Daughter(s) Additional Family Medical History / Comment(s): Patient has 2 sons with no major medical problems. Patient has 2 daughters and one has fibromyalgia. Medications and Allergies Home Medications Medication Instructions Recorded Confirmed Type diphenhydrAMINE HCL [Benadryl] 50 mg PO HS 08/19/15 09/29/19 History Cholecalciferol [Vitamin D3 (25 5,000 unit PO DAILY 09/26/16 09/29/19 History Mcg = 1000 Iu)] traMADol HCL [Ultram] 50 mg PO DAILY PRN 09/26/16 09/29/19 History Tamsulosin [Flomax] 0.8 mg PO W/SUPPER 11/01/16 09/29/19 History Acetaminophen Tab [Tylenol] 500 mg PO Q6HR PRN #0 11/04/16 09/29/19 Rx Aspirin 81 mg PO W/SUPPER 09/29/19 09/29/19 History Clopidogrel Bisulfate [Plavix] 75 mg PO DAILY 09/29/19 09/29/19 History Furosemide [Lasix] 20 mg PO DAILY 09/29/19 09/29/19 History Pravastatin Sodium [Pravachol] 40 mg PO HS 09/29/19 09/29/19 History Allergies Allergy/AdvReac Type Severity Reaction Status Date / Time codeine AdvReac Hallucinati Verified 09/29/19 12:19 ons hydrocodone [From [place]] AdvReac Hallucinati Verified 09/29/19 12:19 ons morphine AdvReac arm pham Verified 09/29/19 12:19 and becomes beligerant Physical Exam Vitals: Vital Signs Temp Pulse Pulse Resp BP BP BP 09/30/19 11:00 127/70 09/30/19 08:00 98.1 F 52 L 18 102/56 09/30/19 04:00 98.2 F 41 L 18 132/66 09/30/19 03:37 42 L 09/29/19 23:15 38 L 18 116/56 09/29/19 19:59 98.3 F 42 L 18 160/77 09/29/19 18:18 99.4 F 38 L 20 134/60 09/29/19 17:00 61 15 102/54 09/29/19 16:00 60 14 143/75 09/29/19 15:00 59 L 16 145/61 09/29/19 14:00 59 L 16 152/89 09/29/19 13:25 30 L 16 09/29/19 13:00 56 L 16 150/79 09/29/19 12:00 55 L 19 151/79 BP BP Pulse Ox 09/30/19 11:00 130/62 163/72 09/30/19 08:00 98 09/30/19 04:00 97 09/30/19 03:37 09/29/19 23:15 98 09/29/19 19:59 97 09/29/19 18:18 97 09/29/19 17:00 95 09/29/19 16:00 96 09/29/19 15:00 96 09/29/19 14:00 98 09/29/19 13:25 98 09/29/19 13:00 96 09/29/19 12:00 96 Intake and Output 09/29/19 09/30/19 09/30/19 22:59 06:59 14:59 Intake Total 0 Balance 0 Intake: Other 0 Other: # Voids 4 2 Weight 92.986 kg 91.8 kg Gen: This is an 79-year-old male. Patient is sitting up in bed and appears to be comfortable and in no acute distress. Patient's is at bedside. HEENT: Head is atraumatic, normocephalic. Pupils equal, round. Sclerae is anicteric. NECK: Supple. No JVD. No lymphadenopathy. No thyromegaly. LUNGS: Clear to auscultation. No wheezes or rhonchi. No intercostal retractions. HEART: Regular rate and rhythm. Systolic ejection murmur. ABDOMEN: Soft. Bowel sounds are present. No masses. No tenderness. EXTREMITIES: No pedal edema. No calf tenderness. Dorsalis pedis 2+ bilaterally. NEUROLOGICAL: Patient is awake, alert and oriented x3. Cranial nerves 2 through 12 are grossly intact. Results CBC & Chem 7: 09/29/19 10:55 09/29/19 10:55 Thrombosis Risk Factor Assmnt - DVT/VTE Prophylaxis DVT/VTE Prophylaxis: Low risk, early ambulation encouraged - Choose All That Apply Any of the Below Risk Factors Present?: Yes Each Factor Represents 1 point: Obesity (BMI >25) Thrombosis Risk Factor Assessment Total Risk Factor Score: 1 Thrombosis Risk Factor Assessment Level: Low Risk Assessment and Plan Plan: 1. Weakness and lightheadedness possibly related to bradycardia with trivesicular block. Patient is followed by cardiology. Cardiology consult appreciated. Plan to monitor overnight and patient may require pacemaker ins erted patient tomorrow. 2. 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 Patient is s cheduled for surgery on October [address] Porter. Continue Plavix 75 mg daily, Pravachol 3. History of coronary artery disease status post CABG, aortic valve and mitral valve replacement in 2014. 4. Recent CVA, stable. 5. Hyperlipidemia. Continue Pravachol 40 mg at bedtime.. 6. Gastroesophageal reflux disease. 7. Generalized osteoarthritis. 8. DVT prophylaxis. Early ambulation. 9. GI prophylaxis. Pepcid. Patient will be admitted to the hospital for a minimum of 2 night stay. Discharge plan: Impression and plan of care have been directed as dictated by the signing physic ian. Kristan Mobley nurse practitioner acting as scribe for signing physician.
--- NOTE | 2019-09-30 14:54 | US ---
EXAMINATION TYPE: US abdomen complete DATE OF EXAM: 09/30/2019 COMPARISON: 09/17/2014 CLINICAL HISTORY: abd tenderness, enlarged spleen, eval liver too. enlarged spleen, abdominal tendern ess EXAM MEASUREMENTS: Liver Length: 14.6 cm Gallbladder Wall: 0.3 cm CBD: 0.9 cm Spleen: 10.9 cm Right Kidney: 9.5 x 5.9 x 5.2 cm Left Kidney: 10.1 x 5.4 x 4.7 cm Technical limitations due to large amount of overlying bowel content Pancreas: Obscured by bowel gas Liver: only visualized intercostally, visualized portions appear wnl Gallbladder: no evidence of stones Evidence for sonographic Ramos's sign: no CBD: limited evaluation due to overlying bowel content Spleen: appears wnl Right Kidney: cystic area = 1.3 x 1.1 x 1.1cm Left Kidney: possible stone mid = 0.6cm Upper IVC: Obscured by overlying bowel gas Abd Aorta: visualized portions appear wnl IMPRESSION: 1. The spleen measures within normal limits 2. There is a 6 mm nonobstructing left renal calculus. 3. 1.3 cm right renal cyst. 4. CBD measures prominent at 9 mm and should be correlated clinically. No definite gallstones. If war ranted ERCP or MRCP could be performed.
[2019-09-30] MEDS: SODIUM CHLORIDE 0.9% 1,000 ML IV SCH ×3 (15:28→16:56)
[2019-09-30] MEDS: ASPIRIN 81 MG PO SCH (17:48)
[2019-09-30] MEDS: TAMSULOSIN 0.4 MG CAP.ER.24H PO SCH (17:48)
[2019-09-30] MEDS ORDERED: fentaNYL (PF) 50 MCG/ML 2 ML AMP IV PRN (18:53)
[2019-09-30] MEDS ORDERED: LIDOCAINE 1% (10MG/ML) FOR IV START INTRADERMA PRN (18:53)
[2019-09-30] MEDS ORDERED: MIDAZOLAM 2 MG/2 ML VIAL IV PRN (18:53)
[2019-09-30] MEDS: HEPARIN SODIUM,PORCINE 5,000 UNIT/ML 1 ML VIAL SQ SCH (20:30)
[2019-09-30] MEDS: PRAVASTATIN SODIUM 40 MG TAB PO SCH (20:31)
[2019-09-30] MEDS: diphenhydrAMINE 25 MG CAP PO SCH (20:31)
[2019-09-30 21:39] LABS: Glucose,Whole Blood 135 mg/dL (75-99)
[2019-10-01] MEDS: ACETAMINOPHEN TAB 500 MG TAB PO PRN ×3 (04:37→23:33)
[2019-10-01] MEDS: CHOLECALCIFEROL 1,000 UNIT TAB PO SCH (04:37)
[2019-10-01] MEDS: CLOPIDOGREL 75 MG TAB PO SCH (04:38)
[2019-10-01] MEDS: HEPARIN SODIUM,PORCINE 5,000 UNIT/ML 1 ML VIAL SQ SCH ×2 (04:39→19:55)
[2019-10-01 06:25] LABS: Glucose,Whole Blood 97 mg/dL (75-99)
[2019-10-01 06:51] LABS: Basophils % (A) 1 %; Eosinophils # (A) 0.3 k/uL (0-0.7); Eosinophils % (A) 7 %; HGB 12.1 gm/dL (13.0-17.5); Lymphocytes # (A) 0.7 k/uL (1.0-4.8); Lymphocytes % (A) 19 %; MCH 26.9 pg (25.0-35.0); Mean Platelet Volume 7.4; Monocytes # (A) 0.3 k/uL (0-1.0); Monocytes % (A) 8 %; Neutrophils # (A) 2.3 k/uL (1.3-7.7); Neutrophils % (A) 63 %; Platelet Count 129 k/uL (150-450); RBC 4.52 m/uL (4.30-5.90); RDW 15.1 % (11.5-15.5); WBC 3.6 k/uL (3.8-10.6)
[2019-10-01] MEDS ORDERED: ceFAZolin 1,000 MG in SODIUM CHLORIDE 0.9% IRRIGATIO 250 ML IRRIGATION ONE (07:00)
[2019-10-01 07:07] LABS: Albumin 3.6 g/dL (3.5-5.0); Calcium 8.9 mg/dL (8.4-10.2); Potassium 4.2 mmol/L (3.5-5.1); Total Bilirubin 0.5 mg/dL (0.2-1.3)
[2019-10-01] MEDS ORDERED: IOPAMIDOL-250 100ML BTL IV ONE (07:30)
[2019-10-01] MEDS ORDERED: fentaNYL (PF) 50 MCG/ML 2 ML AMP IV ONE (07:43)
[2019-10-01] MEDS ORDERED: MIDAZOLAM 2 MG/2 ML VIAL IVP ONE (07:43)
[2019-10-01] MEDS ORDERED: IV FLUID CONTINUATION 1,000 ML IV ONE (07:43)
[2019-10-01] MEDS: MIDAZOLAM 2 MG/2 ML VIAL IVP ONE ×3 (07:45→08:08)
[2019-10-01] MEDS: fentaNYL (PF) 50 MCG/ML 2 ML AMP IV ONE ×2 (07:45→07:53)
[2019-10-01] MEDS ORDERED: LIDOCAINE 1% INJ 10MG/ML (20 ML MDV) SQ ONE (07:52)
--- NOTE | 2019-10-01 09:05 | P.PCN ---
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 Patient is advised to have permanent pacemaker implantation. CONSENT:I have discussed the risks, benefits and alternative therapies for the above-mentioned procedure and for both sedation/analgesia as well as necessary blood product administration, if indicated, as they pertain to this patient. The patient has indicated understanding and acceptance of the risks and procedures discussed. PROCEDURE: Patient was brought to the lab in a fasting state. Patient was prepped and draped in the usual fashion. Patient was given IV sedation with fentanyl and Versed. The skin below the left clavicle was infiltrated with lidocaine. An incision was made parallel to deltopectoral groove was deepened until the pectoral fascia was exposed. A pocket was created by blunt dissection and cautery. Axillary venography was performed to delineate the course of the axillary vein. 2 sticks were performed into extrathoracic portion of the axillary vein and 2 sheaths were advanced over the guidewires and left in subclavian vein. Conscious Sedation: Versed 2mg Fentanyl 100 g Duration 59minutes LEADS: ATRIAL: This is manufactured by [employer] and model number is 5076-52 and the serial number is [id number] VENTRICULAR:. This is manufactured by [employer]. Model number is 5076-58 and the serial number is [id number] THE DEVICE: This is manufactured by [employer]. Model number is [id number] and the serial number is [id number] The ventricular lead is maneuvered l with help of a straight and curved stylets into the left ventricle apical region. Satisfactory position was obtained and threshold measurements were made. The atrial lead was then maneuvered into the right atrial appendage. And thresholds were obtained. THRESHOLDS: ATRIUM: The minimal patient threshold was 1 at pulse width of 0.4 with impedance of 722. P-wave: 1 VENTRICLE:. The minimal patient threshold is less than 1 at pulse width of 0.4 with impedance of 798 R-wave:. 5.5 The leads and pulse generator remained in the pocket after it was washed with antibiotics. Pocket was closed in the usual fashion. The fasci a was closed with 2-0 Prolene ,the subcutaneous tissue was closed with 3-0 Prolene and the skin was closed with 4-0 Prolene. PROGRAMMING: MODE: DDDR RATE: 60 to 130 OUTPUT: Atrium : 3.5 Ventricle: 3.5 FINAL IMPRESSION: #1. Axillary venography #2. Successful implantation of dual- chamber pacemaker COMPLICATIONS: None PLAN:. Patient will be monitored on the telemetry unit. If stable, patient could be discharged within next 24 hours. Continue prophylactic antibiotics
[2019-10-01] MEDS: LACTATED RINGERS 1,000 ML IV SCH ×2 (09:46→19:46)
[2019-10-01] MEDS: SODIUM CHLORIDE 0.9% 1,000 ML IV SCH ×4 (09:48→19:50)
[2019-10-01 11:39] LABS: Glucose,Whole Blood 123 mg/dL (75-99)
[2019-10-01] MEDS: FUROSEMIDE 20 MG TAB PO SCH (12:28)
--- NOTE | 2019-10-01 13:02 | PN ---
PROGRESS NOTE Mr. Elena is an an 79-year-old male who presented with episode of lightheadedness, unsteadiness and a sinus bradycardia that was persistent. He underwent permanent pacemaker implantation today. He is feeling better. He feels his energy better walking. He denies any chest pain. He denies any dizziness, palpitation. He denies any nausea. He continues to be at this time on aspirin once a day, Plavix 75 mg daily, Lasix 20 mg daily. PHYSICAL EXAMINATION: Blood pressure 146/70 with a heart rate in the 60s. LUNGS: Clear. HEART: Regular rate and rhythm, S1, S2. No S3 with systolic murmur heard at the base. No diastolic murmur, no rub. ABDOMEN: Soft, nontender. EXTREMITIES: No edema. LAB DATA: Revealed a hemoglobin of 12.1, BUN and creatinine of 24 and 1.01. IMPRESSION: 1. Status post permanent pacemaker implantation for persistent sinus bradycardia. 2. Status post aortic valve replacement and mitral valve repair. 3. Status post coronary artery bypass grafting. 4. Mild hypertension, has been stable in the past. 5. Hyperlipidemia. RECOMMENDATION: Will continue present therapy, follow his blood pressure. If his blood pressure remains elevated and adjustment of his medical regimen can be initiated. I will interrogate the device tomorrow. If there is no evidence of abnormality, I would expect he should be able to be discharged home tomorrow and follow up as an outpatient with Dr. Christensen. REFUGIO / PRETTY: [id number] /
--- NOTE | 2019-10-01 13:07 | P.PN ---
Subjective Progress Note Date: 10/01/19 This is an 79-year-old male patient of Dr. Sergio Gayle and Dr. Christensen with past medical history of coronary artery disease status post 2 vessel to vessel CABG, aortic valve and mitral valve replacement in 2015, history of TIA, gastroesophageal reflux disease, hyperlipidemia, osteoarthritis, po lymyalgia rheumatica. 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. Patient is scheduled for carotid surgery with Dr. Porter on October 21. Patient states on Saturday he was having symptoms whenever he walks that he was feeling weak and lightheaded. He stayed home over the weekend did not do very much. He states when he walked to the mailbox he was having significant difficulty with same symptoms. When he develops the symptoms he ends up slowing down or sitting down until they resolve. He denies having any chest pain or shortness of breath. He denies any symptoms when he is seated or lying down. He states he tried to call his vascular surgeon on Saturday and again Saturday to update him. Unfortunately, he was unable to reach him. At the time of this evaluation, patient is seated in bed and has no symptoms. He did walk with his nurse in the hallway and was feeling weak and lightheaded and heart rate was 35-40 range. He denied having any chest pain or shortness of breath during that episode. He denies having any syncopal episodes. He is complaining of a posterior headache in the occipital regions bilaterally. Patient found to have left-sided tenderness with possible splenomegaly. He denies having any abdominal pain, blood or tarry stools, he has been diagnosed with diverticulosis on his last colonoscopy which was approximate 5-6 years ago. He states he has been eating popcorn strawberries and berries recently. Patient came into [facility] emergency center for evaluation. Heart rate was running in the 50s and 60s in the emergency center, afebrile, blood pressure 140/72. WBC 4.1, hemoglobin 12.9, platelet count 144, INR 1.0, electrolytes within normal limits, BUN 29 creatinine 1.13, blood sugar 123, liver function tests within normal limits. Troponin 0.013, TSH 0.77, urinalysis negative. EKG is a first-degree AV block at a heart rate of 61. CAT scan of the brain showed no acute intracranial hemorrhage or midline shift. Diffuse age-related cerebral atrophy and chronic small vessel ischemic change. Multiple old lacunar injuries. Severe left maxillary sinusitis. Patient was found to have bradycardia and was admitted to the cardiac stepdown unit with cardiology consult requested. The patient is to be monitored overnight with plan for possible pacemaker tomorrow. 09/30: Patient is been afebrile, heart rate in the 60s, blood pressure 145/71, pulse ox 95% on room air. Patient underwent permanent pacemaker implantation this morning with Dr. Copeland. The patient is now seen on the selective care unit. He denies having any chest pain or shortness of breath. No nausea. He states he is able to urinate without difficulty. He denies any lower extremity edema. Abdominal ultrasound reveals a normal-sized spleen. A 6 mm nonobstructing left renal calculus. 1.3 cm right renal cyst. CBD measures 9 mm and should be correlated clinically. No definite gallstones. If warranted MRCP or ERCP could be performed. Patient may need follow-up at a later time as an outpatient regarding this. Anticipate discharge home tomorrow. Objective - Vital Signs Vital signs: Vital Signs Temp 97.8 F 10/01/19 09:26 Pulse 61 10/01/19 09:41 Resp 16 10/01/19 09:41 BP 150/80 10/01/19 09:41 Pulse Ox 96 10/01/19 09:41 Intake & Output 09/30/19 10/01/19 10/01/19 18:59 06:59 18:59 Intake Total 979 150 Balance 979 150 Weight 92.4 kg Intake: IV 150 Oral 479 Other 500 Other: # Voids 2 1 - Exam Review of Systems Constitutional: Denies chills, Denies fatigue, Denies fever, Denies lethargy, Denies malaise, Denies poor appetite, Denies weight loss Eyes: denies blurred vision, denies pain Ears, nose, mouth and throat: Denies headache, Denies dysphagia, Denies nasal congestion, Denies nasal discharge, Denies vertigo Cardiovascular: Denies chest pain, denies lightheadedness, Denies decreased exercise tolerance, Denies dyspnea on exertion, Denies shortness of breath, Denies syncope Respiratory: Denies cough, Denies cough with sputum, Denies dyspnea, Denies excessive sputum, Denies hemoptysis, Denies home oxygen, Denies respiratory infections, Denies wheezing Gastrointestinal: Denies abdominal pain, Denies loss of appetite, Denies nausea, Denies vomiting Genitourinary: Denies dysuria, Denies urinary retention Musculoskeletal: Denies frequent falls, Denies gait dysfunction, Denies muscle weakness, Denies myalgias Integumentary: Denies pruritus, Denies rash, Denies wounds Neurological: Denies change in mentation, Denies change in speech, Denies numbness, Denies weakness Psychiatric: Denies anxiety, Denies depression Endocrine: Denies fatigue, Denies weight change Physical examination Gen: This is an 79-year-old male. Patient is sitting up in bed and appears to be comfortable and in no acute distress. Patient's is at bedside. HEENT: Head is atraumatic, normocephalic. Pupils equal, round. Sclerae is anicteric. NECK: Supple. No JVD. No lymphadenopathy. No thyromegaly. LUNGS: Clear to auscultation. No wheezes or rhonchi. No intercostal retracti ons. HEART: Regular rate and rhythm. Systolic ejection murmur. ABDOMEN: Soft. Bowel sounds are present. No masses. No tenderness. EXTREMITIES: No pedal edema. No calf tenderness. Dorsalis pedis 2+ bilaterally. Sling in place for the left arm. Dressing in place with no breakthrough bleeding or drainage in the left upper anterior chest wall. NEUROLOGICAL: Patient is awake, alert and oriented x3. Cranial nerves 2 through 12 are grossly intact. - Labs CBC & Chem 7: 10/01/19 06:26 10/01/19 06:26 Labs: Abnormal Lab Results - Last 24 Hours (Table) 09/30/19 10/01/19 10/01/19 Range/Units 21:35 06:26 06:26 WBC 3.6 L (3.8-10.6) k/uL Hgb 12.1 L (13.0-17.5) gm/dL Hct 38.0 L (39.0-53.0) % Plt Count 129 L (150-450) k/uL Lymphocytes # 0.7 L (1.0-4.8) k/uL BUN 24 H (9-20) mg/dL POC Glucose (mg/dL) 135 H (75-99) mg/dL Total Protein 6.0 L (6.3-8.2) g/dL Assessment and Plan Plan: 1. Weakness and lightheadedness possibly related to bradycardia with trivesicular block status post pacemaker implantation. Cardiology consult appreciated. Plan to monitor overnight and discharged home tomorrow. 2. 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 Patient is scheduled for surgery on October [address] Porter. Continue Plavix 75 mg daily, Pravachol 3. History of coronary artery disease status post CABG, aortic valve and mitral valve replacement in 2014. 4. Recent CVA, stable. 5. Hyperlipidemia. Continue Pravachol 40 mg at bedtime. 6. Gastroesophageal reflux disease. 7. Generalized osteoarthritis. 8. DVT prophylaxis. Early ambulation. 9. GI prophylaxis. Pepcid. Discharge plan: Home tomorrow Impression and plan of care have been directed as dictated by the signing physician. Kristan Mobley nurse practitioner acting as scribe for signing physician.
[2019-10-01] MEDS: traMADol 50 MG TAB PO PRN (16:10)
[2019-10-01] MEDS: ASPIRIN 81 MG PO SCH (16:11)
[2019-10-01] MEDS: TAMSULOSIN 0.4 MG CAP.ER.24H PO SCH (16:11)
[2019-10-01 17:08] LABS: Glucose,Whole Blood 84 mg/dL (75-99)
[2019-10-01] MEDS: diphenhydrAMINE 25 MG CAP PO SCH (19:55)
[2019-10-01] MEDS: PRAVASTATIN SODIUM 40 MG TAB PO SCH (19:55)
[2019-10-02 07:01] LABS: Glucose,Whole Blood 125 mg/dL (75-99)
[2019-10-02 07:17] LABS: Calcium 8.8 mg/dL (8.4-10.2); Potassium 4.3 mmol/L (3.5-5.1)
--- NOTE | 2019-10-02 08:53 | XR ---
EXAMINATION TYPE: XR chest 2V DATE OF EXAM: 10/02/2019 COMPARISON: 08/01/2019 TECHNIQUE: PA and lateral views submitted. HISTORY: Lead placement check FINDINGS: The lungs are clear and there is no pneumothorax, pleural effusion, or focal pneumonia. Subsegmenta l changes at the right lung base with elevated right hemidiaphragm. Postsurgical changes noted. Doubl e lead cardiac pacemaker seen. Hypertrophic and degenerative change of the spine. IMPRESSION: 1. No postprocedural complication. 2. Stable right basilar atelectasis favored over infiltrate..
[2019-10-02] MEDS: SODIUM CHLORIDE 0.9% 1,000 ML IV SCH ×3 (08:55)
[2019-10-02] MEDS: CHOLECALCIFEROL 1,000 UNIT TAB PO SCH (08:57)
[2019-10-02] MEDS: HEPARIN SODIUM,PORCINE 5,000 UNIT/ML 1 ML VIAL SQ SCH (08:59)
[2019-10-02] MEDS: CLOPIDOGREL 75 MG TAB PO SCH (08:59)
[2019-10-02] MEDS: FUROSEMIDE 20 MG TAB PO SCH (08:59)
[2019-10-02] MEDS: traMADol 50 MG TAB PO PRN (09:06)
[2019-10-02 09:58] VITALS: BP 136/68; PULSE 61; RESP 20; TEMP 98.2
--- NOTE | 2019-10-02 13:06 | PN ---
PROGRESS NOTE Mr. Elena is an 79-year-old male who presented with symptoms of lightheadedness, of lack of energy as well as dyspnea. He underwent a permanent pacemaker implantation yesterday because of severe bradycardia. He is feeling better, ambulating without difficulty. Denying any chest pain. No dizziness. No palpitation. He denies any nausea or vomiting. The site of the pacemaker is clean. His chest x-ray revealed no evidence of pneumothorax with normal positioning of his wires. PHYSICAL EXAMINATION: Blood pressure 136/60 with the heart rate in the 60s. LUNGS: Clear. HEART: Regular rate and rhythm. S1, S2. No S3. No rub. With a systolic ejection murmur heard at the base. No diastolic murmur. ABDOMEN: Soft, nontender. EXTREMITIES: No edema. Pacemaker site clean. LAB DATA: Lab data revealed BUN and creatinine 21 and 0.96, potassium 4.3. IMPRESSION: 1. Status post permanent pacemaker implantation. 2. Status post aortic valve replacement, mitral valve repair and coronary artery bypass grafting. 3. Hypertension. 4. Hyperlipidemia. RECOMMENDATION: The patient will be discharged home today and followed as an outpatient with Dr. Christensen. MMNADERL / PRETTY: [id number] /
--- NOTE | 2019-10-02 15:03 | P.DS ---
Providers Date of admission: 09/29/19 15:14 Expected date of discharge: 10/02/19 Attending physician: Ernesto Cardona Consults: 09/29/19 15:15 Consult Physician Urgent Consulting Provider: Shauna Navarro Consult Reason/Comments: Symptomatic bradycardia Do you want consulting provider notified?: Yes Primary care physician: Sergio Gayle [facility] Course: This is an 79-year-old male patient of Dr. Sergio Gayle and Dr. Christensen with past medical history of coronary artery disease status post 2 vessel to vessel CABG, aortic valve and mitral valve replacement in 2014, history of TIA, gastroesophageal reflux disease, hyperlipidemia, osteoarthritis, polymyalgia rheumatica. Patient presented to the emergency center in July of this year regarding weakness in his legs was found to have a critical stenosis of the right carotid internal artery and was transferred to [facility]. Patient is scheduled for carotid surgery with Dr. Porter on October 21. Patient states on Saturday he was having symptoms whenever he walks that he was feeling weak and lightheaded. He stayed home over the weekend did not do very much. He states when he walked to the mailbox he was having significant difficulty with same symptoms. When he develops the symptoms he ends up slowing down or sitting down until they resolve. He denies having any chest pain or shortness of breath. He denies any symptoms when he is seated or lying down. He states he tried to call his vascular surgeon on Saturday and again Saturday to update him. Unfortunately, he was unable to reach him. At the time of this evaluation, patient is seated in bed and has no symptoms. He did walk with his nurse in the hallway and was feeling weak and lightheaded and heart rate was 35-40 range. He denied having any chest pain or shortness of breath during that episode. He denies having any syncopal episodes. He is complaining of a posterior headache in the occipital regions bilaterally. Patient found to have left-sided tenderness with possible splenomegaly. He denies having any abdominal pain, blood or tarry stools, he has been diagnosed with diverticulosis on his last colonoscopy which was approximate 5-6 years ago. He states he has been eating popcorn strawberries and berries recently. Patient came into [facility] emergency center for evaluation. Heart rate was running in the 50s and 60s in the emergency center, afebrile, blood pressure 140/72. WBC 4.1, hemoglobin 12.9, platelet count 144, INR 1.0, electrolytes within normal limits, BUN 29 creatinine 1.13, blood sugar 123, liver function tests within normal limits. Troponin 0.013, TSH 0.77, urinalysis negative. EKG is a first-degree AV block at a heart rate of 61. CAT scan of the brain showed no acute intracranial hemorrhage or midline shift. Diffuse age-related cerebral atrophy and chronic small vessel ischemic change. Multiple old lacunar injuries. Severe left maxillary sinusitis. Patient was found to have bradycardia and was admitted to the cardiac stepdown unit with cardiology consult requested. The patient is to be monitored overnight with plan for possible pacemaker tomorrow. 09/30: Patient is been afebrile, heart rate in the 60s, blood pressure 145/71, pulse ox 95% on room air. Patient underwent permanent pacemaker implantation this morning with Dr. Copeland. The patient is now seen on the selective care unit. He denies having any chest pain or shortness of breath. No nausea. He states he is able to urinate without difficulty. He denies any lower extremity edema. Abdominal ultrasound reveals a normal-sized spleen. A 6 mm nonobstructing left renal calculus. 1.3 cm right renal cyst. CBD measures 9 mm and should be correlated clinically. No definite gallstones. If warranted MRCP or ERCP could be performed. Patient may need follow-up at a later time as an outpatient regarding this. Anticipate discharge home tomorrow. 10/01: Patient is afebrile, heart rate 61, blood pressure 136/68, pulse ox 96% on room air. Repeat lab work reveals normal electrolytes, BUN 21 creatinine 0.96, blood sugars between 84 125. Patient underwent permanent pacemaker implantation yesterday. He has had no postop complications. He he does complain of some chest pain at the site of the insertion. No shortness of breath, no lightheadedness or dizziness, no palpitations. A chest x-ray revealed no evidence of pneumothorax and normal positioning of his wires. Patient has been seen by Dr. Navarro this morning cleared for discharge. Patient is to follow up with Dr. Christensen as an outpatient. Patient will be discharged home today in stable condition. Discharge diagnoses: 1. Weakness and lightheadedness possibly related to bradycardia with trivesicular block status post pacemaker implantation. 2. 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 3. History of coronary artery disease status post CABG, aortic valve and mitral valve replacement in 2015. 4. Recent CVA, stable. 5. Hyperlipidemia. 6. Gastroesophageal reflux disease. 7. Generalized osteoarthritis. Discharge plan: Home Impression and plan of care have been directed as dictated by the signing physician. Kristan Mobley nurse practitioner acting as scribe for signing physician. Patient Condition at Discharge: Good Plan - Discharge Summary Discharge Rx Participant: No New Discharge Prescriptions: Continue diphenhydrAMINE HCL [Benadryl] 50 mg PO HS traMADol HCL [Ultram] 50 mg PO DAILY PRN PRN Reason: Pain Cholecalciferol [Vitamin D3 (25 Mcg = 1000 Iu)] 5,000 unit PO DAILY Tamsulosin [Flomax] 0.8 mg PO W/SUPPER Acetaminophen Tab [Tylenol] 500 mg PO Q6HR PRN #0 PRN Reason: Pain Pravastatin Sodium [Pravachol] 40 mg PO HS Aspirin 81 mg PO W/SUPPER Furosemide [Lasix] 20 mg PO DAILY Clopidogrel Bisulfate [Plavix] 75 mg PO DAILY Discharge Medication List diphenhydrAMINE HCL [Benadryl] 50 mg PO HS 08/19/15 [History] Cholecalciferol [Vitamin D3 (25 Mcg = 1000 Iu)] 5,000 unit PO DAILY 09/26/16 [History] traMADol HCL [Ultram] 50 mg PO DAILY PRN 09/26/16 [History] Tamsulosin [Flomax] 0.8 mg PO W/SUPPER 11/01/16 [History] Acetaminophen Tab [Tylenol] 500 mg PO Q6HR PRN #0 11/04/16 [Rx] Aspirin 81 mg PO W/SUPPER 09/29/19 [History] Clopidogrel Bisulfate [Plavix] 75 mg PO DAILY 09/29/19 [History] Furosemide [Lasix] 20 mg PO DAILY 09/29/19 [History] Pravastatin Sodium [Pravachol] 40 mg PO HS 09/29/19 [History] Follow up Appointment(s)/Referral(s): Durga Christensen MD [STAFF PHYSICIAN] - 10/08/19 8:30 am (Appointment time change Device check at office at 8:30 AM, then follow up with Dr. Christensen at regular appointment at 9:00 AM.) Merlin Porter DO [REFERRING] - (Call office and update about pacemaker insertion.) Sergio Gayle MD [Primary Care Provider] - 10/09/19 1:00 pm Patient Instructions/Handouts: Dehydration (DC), Bradycardia (DC), Pacemaker (DC) Activity/Diet/Wound Care/Special Instructions: Pacemaker insertion precautions: 1. Keep dressing dry and intact for 5 days. You may cover the area with saran or cling wrap, prior to a shower. 2. The dressing will be removed in the [facility] at [facility]. Absorbable sutures were used to close the wound. 3. Avoid raising the left arm above the shoulder level. (4-week restriction). 4. Avoid arm movements, like backscratching, rubbing your head, or pulling on a cord with your left arm. (4-week restriction). 5. Gentle range of motion movements of the left shoulder should be performed to avoid a frozen shoulder. (Pendulum exercises). 6. The opposite arm may be used freely. 7. Avoid driving for 7 days. 8. Avoid activities such as golfing, swimming, week whacking, lifting more than 10 pounds of weight, bowling, gymnastics and weight training/lifting. (6-week restriction). 9. Activities such as chopping wood, pull-ups, power lifting, welding, and being around an induction cooktop will always be a problem and can interfere with your pacemaker. 10. Your arm sling is only a reminder to not lift your arm above your head. You do not need to keep the arm completely immobilized. You are free to move your arm and use it for normal activities. In case of any problems, please call [facility] [place] [facility] @ [phone]. Discharge Disposition: HOME SELF-CARE
== END 2019-10-02 11:47 | disposition home or self-care (01) | DRG 244 ==
LOC: EC 10:36 → 3SCARD 15:14
PROVIDERS: ADMIT Internal Medicine; ATTEND Internal Medicine
PROC: 02HL3JZ Insertion of Pacemaker Lead into Left Ventricle, Percutaneous Approach (ICD-10-PCS; principal; 2019-10-01 17:30)
PROC: 0JH606Z Insertion of Pacemaker, Dual Chamber into Chest Subcutaneous Tissue and Fascia, Open Approach (ICD-10-PCS; principal; 2019-10-01 17:30)
PROC: 02H63JZ Insertion of Pacemaker Lead into Right Atrium, Percutaneous Approach (ICD-10-PCS; principal; 2019-10-01 17:30)
DX: I45.3 Trifascicular block (principal); I44.0 Atrioventricular block, first degree; J32.0 Chronic maxillary sinusitis; I25.2 Old myocardial infarction; I25.10 Atherosclerotic heart disease of native coronary artery without angina pectoris; M15.9 Polyosteoarthritis, unspecified; K21.9 Gastro-esophageal reflux disease without esophagitis; I10 Essential (primary) hypertension; I08.0 Rheumatic disorders of both mitral and aortic valves; E78.5 Hyperlipidemia, unspecified; M35.3 Polymyalgia rheumatica; N20.0 Calculus of kidney; N28.1 Cyst of kidney, acquired; Z79.02 Long term (current) use of antithrombotics/antiplatelets; Z79.899 Other long term (current) drug therapy; Z80.0 Family history of malignant neoplasm of digestive organs; Z82.5 Family history of asthma and other chronic lower respiratory diseases; Z83.3 Family history of diabetes mellitus; Z86.73 Personal history of transient ischemic attack (TIA), and cerebral infarction without residual deficits; Z87.891 Personal history of nicotine dependence; Z95.1 Presence of aortocoronary bypass graft; Z95.2 Presence of prosthetic heart valve; Z88.5 Allergy status to narcotic agent; Z87.01 Personal history of pneumonia (recurrent); Z98.49 Cataract extraction status, unspecified eye; R00.1 Bradycardia, unspecified; Z96.652 Presence of left artificial knee joint; G43.909 Migraine, unspecified, not intractable, without status migrainosus; K57.30 Diverticulosis of large intestine without perforation or abscess without bleeding; Z79.82 Long term (current) use of aspirin; I25.9 Chronic ischemic heart disease, unspecified
CPT/HCPCS: 33208; 36415; 70450; 71046; 76700; 80048; 80053; 81003; 83735; 84443; 84484; 85025; 85610; 93005; 93306; 99285

== ENCOUNTER 2019-12-02 14:27 | Emergency (ER) | payer MEDICARE ==
[2019-12-02 14:40] VITALS: BP 164/60; PULSE 75; RESP 18; TEMP 97.9
[2019-12-02] MEDS ORDERED: LIDOCAINE URO-JET JELLY 2% 5 ML KIT URETHRAL STA (14:56)
[2019-12-02 15:00] LABS: Appearance,Urine Clear (Clear); Bilirubin,Urine Negative (Negative); Blood,Urine Negative (Negative); Color,Urine Light Yellow; Glucose,Urine (UA) Negative (Negative); Ketones,Urine Negative (Negative); Leukocyte Esterase,Urine Negative (Negative); Nitrite,Urine Negative (Negative); Protein,Urine Negative (Negative); Specific Gravity,Urine 1.007 (1.001-1.035); Urobilinogen,Urine <2.0 mg/dL (<2.0)
--- NOTE | 2019-12-02 15:20 | ED ---
Male Urogenital HPI - General Chief complaint: Urogenital Stated complaint: Urogenital Time Seen by Provider: 12/02/19 14:48 Source: patient Mode of arrival: ambulatory Limitations: no limitations - History of Present Illness Initial comments: 79-year-old male patient presents to the emergency department today for evaluation of suprapubic pressure and frequency of urination. Patient states symptoms were going on for the last couple of days but worsened today. States he constantly feels the urge to urinate and only urinates very small amounts at a time. Patient states he does have a pressure in his suprapubic region. He does report a history of benign prostatic hypertrophy and does take Proscar and Flomax. States the pros Christy is a relatively new medication for him. He denies any hematuria or dysuria. States that he has had have a catheter in the past. He denies any new medications other than the Proscar. Denies fever or chills. Denies any flank pain. Denies nausea or vomiting. Patient denies any recent rash, cough, shortness of breath, chest pain, diarrhea, constipation, back pain, numbness, tingling, dizziness, weakness, headache, visual changes, or any other complaints. - Related Data Home Medications Medication Instructions Recorded Confirmed diphenhydrAMINE HCL [Benadryl] 50 mg PO HS 08/19/15 09/29/19 Cholecalciferol [Vitamin D3 (25 5,000 unit PO DAILY 09/26/16 09/29/19 Mcg = 1000 Iu)] traMADol HCL [Ultram] 50 mg PO DAILY PRN 09/26/16 09/29/19 Tamsulosin [Flomax] 0.8 mg PO W/SUPPER 11/01/16 09/29/19 Aspirin 81 mg PO W/SUPPER 09/29/19 09/29/19 Clopidogrel Bisulfate [Plavix] 75 mg PO DAILY 09/29/19 09/29/19 Furosemide [Lasix] 20 mg PO DAILY 09/29/19 09/29/19 Pravastatin Sodium [Pravachol] 40 mg PO HS 09/29/19 09/29/19 Previous Rx's Medication Instructions Recorded Acetaminophen Tab [Tylenol] 500 mg PO Q6HR PRN #0 11/04/16 Allergies Allergy/AdvReac Type Severity Reaction Status Date / Time codeine AdvReac Hallucinati Verified 12/02/19 14:40 ons hydrocodone [From [place]] AdvReac Hallucinati Verified 12/02/19 14:40 ons morphine AdvReac arm pham Verified 12/02/19 14:40 and becomes beligerant Review of Systems ROS Statement: Those systems with pertinent positive or pertinent negative responses have been documented in the HPI. ROS Other: All systems not noted in ROS Statement are negative. Past Medical History Past Medical History: Coronary Artery Disease (CAD), CVA/TIA, GERD/Reflux, Hyperlipidemia, Myocardial Infarction (NM), Osteoarthritis (OA), Pneumonia, Prostate Disorder Additional Past Medical History / Comment(s): polymyalgia rheumatica, "silent migraines-gets blurry vision", hx ulcer, anemia, "precancer lesion", surgery was rescheduled due to an inflammed right foot-now resolved & recent cold & sore throat-just finished antibiotics, multiple TIA's, occluded right carotid Last Myocardial Infarction Date:: 2013 History of Any Multi-Drug Resistant Organisms: None Reported Past Surgical History: Cardiac Valve Replacement, Coronary Bypass/CABG, Heart Catheterization, Pacemaker, Tonsillectomy Additional Past Surgical History / Comment(s): rt elbow surgery, cataracts, open heart surgery- AORTIC VALVE AND MITRAL VALVE & double bypass 2014, 06-07-16 TOTAL LT KNEE, carotids Past Anesthesia/Blood Transfusion Reactions: Motion Sickness Additional Past Anesthesia/Blood Transfusion Reaction / Comment(s): motion sickness as child Past Psychological History: No Psychological Hx Reported Smoking Status: Former smoker Past Alcohol Use History: Occasional Past Drug Use History: None Reported - Past Family History Brother(s) Family Medical History: No Reported History Additional Family Medical History / Comment(s): Patient has 2 brothers that are living. One was Sjogren's and one has history of lung cancer. Sister(s) Additional Family Medical History / Comment(s): Patient has one half-sister at age 76 with history of smoking, COPD and TIA. Daughter(s) Additional Family Medical History / Comment(s): Patient has 2 sons with no major medical problems. Patient has 2 daughters and one has fibromyalgia. Mother Family Medical History: No Reported History Additional Family Medical History / Comment(s): B[place] IN [place], SMOKED MOST OF HER ADULT LIFE- FROM OLD AGE at age 84. Father Family Medical History: Cancer Additional Family Medical History / Comment(s): Father at age 77 with history of liver cancer, diabetes, smoking history. General Exam Limitations: no limitations General appearance: alert, in no apparent distress, other (This is a well- developed, well-nourished elderly male patient in no acute distress. Vital signs upon presentation are temperature 97.9F, pulse 75, respirations 18, blood pressure 164/60, pulse ox 97% on room air.) Respiratory exam: Present: normal lung sounds bilaterally. Absent: respiratory distress, wheezes, rales, rhonchi, stridor Cardiovascular Exam: Present: regular rate, normal rhythm, normal heart sounds. Absent: systolic murmur, diastolic murmur, rubs, gallop, clicks GI/Abdominal exam: Present: soft, tenderness (Suprapubic), normal bowel sounds. Absent: distended, guarding, rebound, rigid Back exam: Present: normal inspection. Absent: CVA tenderness (R), CVA tenderness (L) Neurological exam: Present: alert, oriented X3, CN II-XII intact Psychiatric exam: Present: normal affect, normal mood Skin exam: Present: warm, dry, intact, normal color. Absent: rash Course Vital Signs 12/02/19 14:36 Temperature 97.9 F Pulse Rate 75 Respiratory 18 Rate Blood Pressure 164/60 O2 Sat by Pulse 97 Oximetry Medical Decision Making - Medical Decision Making 79-year-old male patient presented to the emergency department today for evaluation of frequency of urination and suprapubic pressure. Physical examination did reveal mild suprapubic tenderness. Patient was able to void here in the department. Post void residual bladder scan was 150 mL. Patient's urinalysis was negative for signs of infection. We did insert a Mclaughlin catheter. He will be discharged to follow up with urology for urinary tract obstruction. Return parameters were discussed in detail. He verbalizes understanding and agrees with this plan. - Lab Data Lab Results 12/02/19 Range/Units 14:50 Urine Color Light Yellow Urine Appearance Clear (Clear) Urine pH 5.0 (5.0-8.0) Ur Specific [place] 1.007 (1.001-1.035) Urine Protein Negative (Negative) Urine Glucose (UA) Negative (Negative) Urine Ketones Negative (Negative) Urine Blood Negative (Negative) Urine Nitrite Negative (Negative) Urine Bilirubin Negative (Negative) Urine Urobilinogen <2.0 (<2.0) mg/dL Ur Leukocyte Esterase Negative (Negative) Disposition Clinical Impression: Urinary retention Disposition: HOME SELF-CARE Condition: Good Instructions (If sedation given, give patient instructions): Urinary Retention in Men (ED), Mclaughlin Catheter Placement and Care (ED) Additional Instructions: Increase fluids. Follow-up with the urologist for further evaluation. Return to the emergency department immediately for any new, worsening, or concerning symptoms. Is patient prescribed a controlled substance at d/c from ED?: No Referrals: Sergio Gayle MD [Primary Care Provider] - 1-2 days Abel Henriquez MD [STAFF PHYSICIAN] - 1-2 days Time of Disposition: 15:20
== END 2019-12-02 15:44 | disposition home or self-care (01) ==
LOC: EC 14:27
DX: R33.9 Retention of urine, unspecified (principal); R35.0 Frequency of micturition; N40.0 Benign prostatic hyperplasia without lower urinary tract symptoms; I25.10 Atherosclerotic heart disease of native coronary artery without angina pectoris; E78.5 Hyperlipidemia, unspecified; I25.2 Old myocardial infarction; Z79.02 Long term (current) use of antithrombotics/antiplatelets; Z79.899 Other long term (current) drug therapy; Z79.82 Long term (current) use of aspirin; Z88.5 Allergy status to narcotic agent; Z86.73 Personal history of transient ischemic attack (TIA), and cerebral infarction without residual deficits; Z95.1 Presence of aortocoronary bypass graft; Z95.5 Presence of coronary angioplasty implant and graft; Z95.2 Presence of prosthetic heart valve; Z95.0 Presence of cardiac pacemaker; Z87.891 Personal history of nicotine dependence
CPT/HCPCS: 51702; 81003; 99284

== ENCOUNTER 2020-05-23 06:26 | Day surgery (SDC) | payer MEDICARE ==
[~2020-05-23 06:26] MED LIST changes: -ACETAMINOPHEN TAB 500 MG TAB PO ONE; +ALPRAZolam 0.25 MG TAB PO PRN; +ALPRAZolam 0.5 MG TAB PO PRN; +ASPIRIN 325 MG TAB PO STA; +ATORVASTATIN 80 MG TAB PO STA; -DEXAMETHASONE SOD PHOSPHATE 10 MG/ML 1 ML VIAL IV ONE; -HYDROmorphone 1 MG/ML 1 ML SYRINGE IVP PRN; -LIDOCAINE 1% 20 ML VIAL (10MG/ML) FOR IV START INTRADERMA PRN; -MELOXICAM 7.5 MG TAB PO ONE; -MIDAZOLAM 2 MG/2 ML VIAL IV PRN; +NITROGLYCERIN SL TABS 0.4 MG TAB SUBLINGUAL PRN; -ONDANSETRON 4 MG/2 ML VIAL IVP ONE; -Pre Op ABX Message 1 EACH MISC MISCELLANE ONE; -SCOPOLAMINE 1.5MG/72HR PATCH TRANSDERM ONE; +SODIUM CHLORIDE 0.9% 1,000 ML in EMPTY BAG 1 BAG IV ONE; -TRANEXAMIC ACID 1,000 MG in SODIUM CHLORIDE 0.9% 100 ML IVPB ONE; -ceFAZolin 2 GM in SODIUM CHLORIDE 0.9% 100 ML IVPB ONE
[2020-05-23] MEDS ORDERED: ASPIRIN 81 MG ONE (06:52)
[2020-05-23 06:59] LABS: Basophils % (A) 1 %; Eosinophils # (A) 0.4 k/uL (0-0.7); Eosinophils % (A) 8 %; HCT 43.2 % (39.0-53.0); HGB 13.6 gm/dL (13.0-17.5); Lymphocytes # (A) 1.2 k/uL (1.0-4.8); Lymphocytes % (A) 24 %; MCH 27.3 pg (25.0-35.0); MCHC 31.5 g/dL (31.0-37.0); MCV 86.7 fL (80.0-100.0); Mean Platelet Volume 7.2; Monocytes # (A) 0.4 k/uL (0-1.0); Monocytes % (A) 8 %; Neutrophils # (A) 2.8 k/uL (1.3-7.7); Neutrophils % (A) 58 %; Platelet Count 162 k/uL (150-450); RBC 4.98 m/uL (4.30-5.90); RDW 15.7 % (11.5-15.5); WBC 4.9 k/uL (3.8-10.6)
[2020-05-23 07:05] VITALS: RESP 18; TEMP 98.2
[2020-05-23 07:11] LABS: Calcium 9.5 mg/dL (8.4-10.2); Potassium 4.3 mmol/L (3.5-5.1)
[2020-05-23] MEDS ORDERED: fentaNYL (PF) 50 MCG/ML 2 ML AMP ONE (07:16)
[2020-05-23] MEDS: BENZOCAINE SPRAY 1 CAN TOPICAL ONE ×2 (07:22→07:26)
[2020-05-23] MEDS ORDERED: IV FLUID CONTINUATION 1,000 ML IV ONE (07:23)
[2020-05-23] MEDS ORDERED: MIDAZOLAM 2 MG/2 ML VIAL IV ONE (07:42)
[2020-05-23] MEDS: fentaNYL (PF) 50 MCG/ML 2 ML AMP IV ONE ×2 (07:43→07:47)
[2020-05-23] MEDS: MIDAZOLAM 2 MG/2 ML VIAL IV ONE ×2 (07:44→07:45)
[2020-05-23] MEDS ORDERED: LIDOCAINE 1% INJ 10MG/ML (20 ML MDV) ONE (08:08)
[2020-05-23] MEDS ORDERED: LIDOCAINE 1% INJ 10MG/ML (20 ML MDV) SQ ONE (08:09)
[2020-05-23] MEDS ORDERED: IOPAMIDOL-370 125ML BTL INJ ONE (08:32)
[2020-05-23] MEDS ORDERED: RX INFO: IV CONTRAST WAS GIVEN 1 EACH MISC MISCELLANE PRN (08:35)
[2020-05-23] MEDS ORDERED: SODIUM CHLORIDE 0.9% 1,000 ML IV SCH (08:45)
--- NOTE | 2020-05-23 09:36 | ECHOT ---
TRANSESOPHAGEAL ECHOCARDIOGRAM DATE OF SERVICE: 05/23/2020 PERFORMING PHYSICIAN: Durga Christensen MD. PROCEDURE PERFORMED: Transesophageal echocardiogram. INDICATION: This is a very pleasant 79-year-old gentleman with coronary artery disease and prior coronary artery bypass grafting with an SVG to RCA and SVG to LAD as well as valvular heart disease and status post aortic valve replacement and mitral valve repair, who was experiencing symptoms of increasing shortness of breath as well as symptoms of fatigue and tiredness. He underwent a transthoracic echocardiogram and that revealed evidence of normally functioning bioprosthetic aortic valve with moderate mitral regurgitation. Giving his symptoms and there was a concern about the severity of the mitral regurgitation and because of that, a transesophageal echocardiogram and heart catheterization were advised COMPLICATION: None. LEVEL OF SEDATION: Moderate with sedation length of 15 minutes. . PROCEDURE DESCRIPTION: After obtaining an informed consent, the patient was brought to the transesophageal echocardiogram suite. A pulse oximetry and heart rate monitors were attached to the patient. The patient was turned into left lateral position. A bite guard was placed after the patient throat was sprayed using lidocaine. After that, the transesophageal echocardiogram probe was advanced through the bite guard to the mid esophageal where three echocardiogram images as well as color Doppler images as well as pulse and continuous-wave images were obtained from multiple angles. Particular attention was made to the mitral valve. The procedure was completed without any complication. FINDINGS: 1. The left ventricular dimension and systolic function appeared to be within normal limits or on the low limits of normal. The EF appeared to be in the range of 50%. The right ventricle appeared to be of normal size and function. The left atrium appeared to be dilated. The left atrial appendage was not well visualized. The interatrial septum appeared to be intact. The aortic valve appeared to be bioprosthetic valve and seems to be opening normally with trace aortic insufficiency. The mitral valve seems to be thickened with evidence of moderate to severe mitral regurgitation. The tricuspid valve showed evidence of mild to moderate TR. The pulmonic valve was not well visualized. CONCLUSION: 1. Normal left ventricular dimension and systolic function. 2. Normal right ventricular dimension and systolic function. 3. Severe left atrial enlargement. 4. Intact interatrial septum. 5. The left atrial appendage was not well visualized and probably ligated. 6. Bioprosthetic aortic valve seems to be opening normally with a trace aortic insufficiency. 7. Repair mitral valve with evidence of moderate to severe mitral regurgitation. 8. Mild to moderate tricuspid regurgitation. 9. No evidence of pericardial effusion. MMODL / IJN: [id number] /
--- NOTE | 2020-05-23 10:48 | CC ---
CARDIAC CATHETERIZATION REPORT DATE OF SERVICE: 05/23/2020 PERFORMING PHYSICIAN: Durga Christensen MD. PROCEDURE PERFORMED: 1. Selective left and right coronary angiogram. 2. SVG to LAD angiogram. 3. SVG to RCA angiogram. INDICATION: This is an 79-year-old gentleman with mitral valve repair and aortic valve replacement as well as coronary artery disease and prior SVG to LAD and SVG to RCA, was experiencing symptoms of shortness of breath with exertion, which has progressed. He underwent a NOEMY today and that revealed evidence of moderate to severe mitral regurgitation and normally functioning bioprosthetic aortic valve. He was brought today to undergo a heart catheterization. APPROACH: Right common femoral artery. COMPLICATION: None. LEVEL OF SEDATION: Moderate with sedation length of 22 minutes. PROCEDURE DESCRIPTION: After obtaining an informed consent, the patient was brought to the cardiac candlemaking laborer. The right common femoral artery was cannulated using micropuncture technique, the micropuncture wire passed easily, then I did pre-dilated using 5-Singaporean dilator and 7- Singaporean dilator, then I placed 23 cm 6-Singaporean sheath in the right common femoral artery because of tortuous aortoiliac segments. After that, I did selective left and right coronary angiogram with JL4 and JR4 catheters. SVG to LAD angiogram and SVG to RCA angiogram performed using the JR4 catheters. The procedure was completed without any complication. SELECTIVE CORONARY ANGIOGRAM: 1. The left main appeared to be angiographically normal. Bifurcates into LCX and LAD. 2. The LCX is a large caliber vessel, it is a nondominant vessel. The proximal left circumflex is normal and gives rise into a large OM which appeared to be angiographically normal and the circumflex continues after that as a medium caliber vessel in the AV groove. 3. The LAD, the proximal LAD appeared to have mild disease only and the LAD in the proximal and midportion appeared to be subtotally occluded. 4. The right coronary artery is chronically occluded in the midportion. CORONARY BYPASSES ANGIOGRAM: 1. The SVG to LAD is patent. The LAD distal to the SVG anastomosis has a lesion, appeared to be in the range of 70%. 2. The SVG to RCA is patent. CONCLUSION: 1. Severe two-vessel coronary artery disease involving the LAD and RCA. 2. Patent SVG to LAD. The LAD distal to the SVG anastomosis has a lesion appeared to be in the range of 70%. 3. Patent SVG to RCA. 4. Mild disease involving the left circumflex. POSTPROCEDURE MANAGEMENT: 1. Continue the current medical regimen. 2. Evaluate the patient for mitral valve clip. 3. Consider PCI of the LAD distal to the SVG anastomosis. MMODL / IJN: [id number] /
[2020-05-23 15:52] VITALS: BP 164/77; PULSE 64
== END 2020-05-23 16:35 | disposition home or self-care (01) ==
LOC: CATHCVL 06:26
PROVIDERS: ATTEND Internal Medicine Interventional Cardiology
DX: I08.1 Rheumatic disorders of both mitral and tricuspid valves (principal); I25.10 Atherosclerotic heart disease of native coronary artery without angina pectoris; I44.2 Atrioventricular block, complete; I10 Essential (primary) hypertension; I65.23 Occlusion and stenosis of bilateral carotid arteries; E78.00 Pure hypercholesterolemia, unspecified; F17.210 Nicotine dependence, cigarettes, uncomplicated; E78.5 Hyperlipidemia, unspecified; Z95.2 Presence of prosthetic heart valve; Z95.1 Presence of aortocoronary bypass graft; Z79.82 Long term (current) use of aspirin; Z79.899 Other long term (current) drug therapy; Z79.02 Long term (current) use of antithrombotics/antiplatelets; Z88.5 Allergy status to narcotic agent; Z88.8 Allergy status to other drugs, medicaments and biological substances
CPT/HCPCS: 93312; 93320; 93325; 93455; 80048; 85025; C1769 ×3; C1894; J2250; J2001; J3010; Q9967

== ENCOUNTER 2020-06-16 06:34 | Day surgery (SDC) | payer MEDICARE ==
[2020-06-14 10:32] VITALS: BMI 31.1
[~2020-06-16 06:34] MED LIST changes: -ATORVASTATIN 80 MG TAB PO STA
[2020-06-16] MEDS ORDERED: SODIUM CHLORIDE 0.9% 1,000 ML IV ONE (06:48)
[2020-06-16 06:53] VITALS: TEMP 98.3
[2020-06-16] MEDS ORDERED: LIDOCAINE 1% INJ 10MG/ML (20 ML MDV) ONE (07:26)
[2020-06-16] MEDS ORDERED: MIDAZOLAM 2 MG/2 ML VIAL IVP ONE ×2 (07:59→08:18)
[2020-06-16] MEDS ORDERED: LIDOCAINE 1% INJ 10MG/ML (20 ML MDV) SQ ONE (07:59)
[2020-06-16] MEDS ORDERED: fentaNYL (PF) 50 MCG/ML 2 ML AMP IVP ONE (07:59)
[2020-06-16] MEDS ORDERED: fentaNYL (PF) 50 MCG/ML 2 ML AMP ONE (08:00)
[2020-06-16] MEDS ORDERED: BIVALIRUDIN BOLUS 250 MG/50 ML IV ONE (08:05)
[2020-06-16] MEDS ORDERED: BIVALIRUDIN 250 MG in SODIUM CHLORIDE 0.9% 50 ML IV ONE (08:05)
[2020-06-16] MEDS ORDERED: niCARdipine 25 MG/10 ML VIAL ONE (08:07)
[2020-06-16] MEDS ORDERED: HYDROmorphone 1 MG/ML 1 ML SYRINGE ONE (08:09)
[2020-06-16] MEDS ORDERED: HYDROmorphone 1 MG/ML 1 ML SYRINGE IVP ONE (08:10)
[2020-06-16] MEDS ORDERED: NITROGLYCERIN 1000MCG/10ML SYRINGE INTRACORON ONE (08:10)
[2020-06-16] MEDS ORDERED: ADENOSINE 90 MG in SODIUM CHLORIDE 0.9% 60 ML IVP ONE (08:12)
[2020-06-16] MEDS ORDERED: IOPAMIDOL-370 125ML BTL INJ ONE (08:31)
[2020-06-16] MEDS ORDERED: RX INFO: IV CONTRAST WAS GIVEN 1 EACH MISC MISCELLANE PRN (08:35)
[2020-06-16] MEDS ORDERED: SODIUM CHLORIDE 0.9% 1,000 ML IV SCH ×2 (08:45→09:00)
--- NOTE | 2020-06-16 10:35 | CE ---
CARDIAC ELECTROPHYSIOLOGY REPORT FRACTIONAL FLOW RESERVE: DATE OF SERVICE: 06/16/2020 PERFORMING PHYSICIAN: Durga Christensen MD. PROCEDURE PERFORMED: Fractional flow reserve of the left anterior descending artery. INDICATION: This is an 79-year-old gentleman who was experiencing symptoms of shortness of breath with exertion. He underwent a heart catheterization recently and that revealed intermediate to severe disease involving the LAD distal to SVG anastomosis. Because of that, he was brought today to undergo an FFR of the LAD. APPROACH: Left common femoral artery. COMPLICATION: None. LEVEL OF SEDATION: Moderate with sedation length of 34 minutes. PROCEDURE DESCRIPTION: After obtaining informed consent, the patient was brought to the cardiac slab worker. The left common femoral artery was cannulated using micropuncture technique and a micropuncture wire passed easily. Then I did place a 6-[place] sheath 23 cm sheath in the left common femoral artery. Anticoagulation was achieved with Angiomax. After that, I did engage the SVG to LAD using an LCB guide. After zeroing the Doppler wire and equalizing between the Doppler wire and the guiding catheter which was an LCB guiding catheter and FFR per IV adenosine infusion. The FFR came in to be at 0.81. The procedure was aborted at that time. CONCLUSION: Fractional flow reserve of the LAD was performed and came into be at 0.81. POSTPROCEDURE MANAGEMENT: 1. Aggressive cholesterol control. 2. Risk factor modifications. 3. Follow up with the patient. REFUGIO / SHARONDAN: [id number] /
[2020-06-16 13:44] VITALS: RESP 16
[2020-06-16 15:44] VITALS: BP 124/72; PULSE 65
== END 2020-06-16 16:45 | disposition home or self-care (01) ==
LOC: CATHCVL 06:34
PROVIDERS: ATTEND Internal Medicine Interventional Cardiology
DX: I25.10 Atherosclerotic heart disease of native coronary artery without angina pectoris (principal); I34.0 Nonrheumatic mitral (valve) insufficiency; E78.5 Hyperlipidemia, unspecified; F17.210 Nicotine dependence, cigarettes, uncomplicated; Z95.1 Presence of aortocoronary bypass graft; Z95.4 Presence of other heart-valve replacement; Z95.0 Presence of cardiac pacemaker; Z86.73 Personal history of transient ischemic attack (TIA), and cerebral infarction without residual deficits; Z79.82 Long term (current) use of aspirin; Z79.899 Other long term (current) drug therapy; Z79.02 Long term (current) use of antithrombotics/antiplatelets; Z88.5 Allergy status to narcotic agent; Z88.8 Allergy status to other drugs, medicaments and biological substances
CPT/HCPCS: 93571; 93455; C1887; C1769 ×3; C1894; J2250; J2001; J3010; J1170; J0583; J0153; Q9967

== ENCOUNTER 2020-06-17 10:52 | Observation (INO) | payer BC, MEDICARE ==
[2020-06-17] MEDS ORDERED: traMADol 50 MG TAB PO STA (11:16)
--- NOTE | 2020-06-17 11:47 | ED ---
Extremity Problem HPI - General Source: patient, RN notes reviewed Mode of arrival: wheelchair Limitations: no limitations <Simeon Jefferson - Last Filed: 06/17/20 11:46> <Tim Bray - Last Filed: 06/17/20 15:04> - General Chief complaint: Extremity Problem,Nontraumatic Stated complaint: groin pain post procedure Time Seen by Provider: 06/17/20 11:03 - History of Present Illness Initial comments: 79-year-old male presents emergency Department chief complaint of left groin pain and swelling. Patient states he had a heart cath yesterday by Dr. Christensen. Patient was informed return to emergency room if he developed any symptoms. He states he had more pain in the head with his prior one on the right. Patient states her is extensive bruising. Patient does take Plavix and aspirin. Patient underwent a chest pain shortness breath denies any distal leg pain. (Simeon Jefferson) - Related Data Home Medications Medication Instructions Recorded Confirmed Cholecalciferol [Vitamin D3 (25 5,000 unit PO DAILY 09/26/16 06/17/20 Mcg = 1000 Iu)] traMADol HCL [Ultram] 50 mg PO DAILY PRN 09/26/16 06/17/20 Tamsulosin [Flomax] 0.8 mg PO HS 11/01/16 06/17/20 Clopidogrel Bisulfate [Plavix] 75 mg PO DAILY 09/29/19 06/17/20 Ferrous Sulfate [Iron (65 MG 325 mg PO BID 06/14/20 06/17/20 Elemental)] Potassium Gluconate 99 mg PO DAILY 06/14/20 06/17/20 Aspirin EC [Ecotrin Low Dose] 81 mg PO HS 06/17/20 06/17/20 Furosemide [Lasix] 20 - 40 mg PO DAILY 06/17/20 06/17/20 Allergies Allergy/AdvReac Type Severity Reaction Status Date / Time codeine AdvReac Hallucinati Verified 06/17/20 12:16 ons hydrocodone [From [place]] AdvReac Hallucinati Verified 06/17/20 12:16 ons morphine AdvReac arm pham Verified 06/17/20 12:16 and becomes beligerant Review of Systems ROS Other: All systems not noted in ROS Statement are negative. <Simeon Jefferson - Last Filed: 11/20/20 11:46> ROS Other: All systems not noted in ROS Statement are negative. <Tim Bray - Last Filed: 06/17/20 15:04> ROS Statement: Those systems with pertinent positive or pertinent negative responses have been documented in the HPI. Past Medical History Past Medical History: Coronary Artery Disease (CAD), CVA/TIA, GERD/Reflux, Hyperlipidemia, Myocardial Infarction ([place]), Osteoarthritis (OA), Prostate Disorder Additional Past Medical History / Comment(s): "silent migraines-gets blurry vision", hx ulcer, anemia, "precancer lesion", multiple TIA's, occluded right carotid artery Last Myocardial Infarction Date:: 2013 History of Any Multi-Drug Resistant Organisms: None Reported Past Surgical History: Cardiac Valve Replacement, Coronary Bypass/CABG, Heart Catheterization, Joint Replacement, Orthopedic Surgery, Pacemaker, Tonsillectomy Additional Past Surgical History / Comment(s): rt elbow surgery, cataracts, open heart surgery- AORTIC VALVE AND MITRAL VALVE & double bypass 2014, 06-07-16 TOTAL LT KNEE, rt carotid surgery Past Anesthesia/Blood Transfusion Reactions: Motion Sickness Additional Past Anesthesia/Blood Transfusion Reaction / Comment(s): motion sickness as child Type of Cardiac Device: Permanent Pacemaker Device Placement Date:: 09/2019 Past Psychological History: No Psychological Hx Reported Smoking Status: Former smoker Past Alcohol Use History: Occasional Past Drug Use History: None Reported - Past Family History Brother(s) Family Medical History: No Reported History Additional Family Medical History / Comment(s): Patient has 2 brothers that are living. One was Sjogren's and one has history of lung cancer. Sister(s) Additional Family Medical History / Comment(s): Patient has one half-sister at age 76 with history of smoking, COPD and TIA. Daughter(s) Additional Family Medical History / Comment(s): Patient has 2 sons with no major medical problems. Patient has 2 daughters and one has fibromyalgia. Father Family Medical History: Cancer <Simeon Jefferson - Last Filed: 06/17/20 11:46> General Exam Limitations: no limitations General appearance: alert, in no apparent distress Head exam: Present: atraumatic, normocephalic, normal inspection Eye exam: Present: normal appearance, PERRL, EOMI. Absent: scleral icterus, conjunctival injection, periorbital swelling Respiratory exam: Present: normal lung sounds bilaterally. Absent: respiratory distress, wheezes, rales, rhonchi, stridor Cardiovascular Exam: Present: regular rate, normal rhythm, normal heart sounds. Absent: systolic murmur, diastolic murmur, rubs, gallop, clicks Extremities exam: Present: other (Left groin there is extensive ecchymosis, moderate tenderness with palpation. Pulses are equal bilaterally lower extremities equal color equal warmth) <Simeon Jefferson - Last Filed: 06/17/20 11:46> Course <Tim Bray - Last Filed: 06/17/20 15:04> Vital Signs 06/17/20 06/17/20 06/17/20 10:55 13:07 14:46 Temperature 97.8 F 98.4 F Pulse Rate 78 68 Pulse Rate [ 64 Pulse Oximetery ] Respiratory 18 18 16 Rate Blood Pressure 121/81 Blood Pressure 157/74 [Left Arm] O2 Sat by Pulse 99 96 96 Oximetry - Reevaluation(s) Reevaluation #1: 06/17/20 14:42 Patient was taken to interventional radiology and will be discharged following this. 06/17/20 15:04 Radiology department with like patient kept overnight for monitoring and repeat ultrasound in the morning. Family updated. Case discussed with Dr. Shabazz, who will admit covering for Dr. Iban Gayle (Tim Bray) Medical Decision Making <Tim Bray - Last Filed: 06/17/20 15:04> - Medical Decision Making Patient was reexamined and reevaluated by myself, Dr. Bray. Patient does have ecchymosis left inguinal region with some swelling and tenderness. Femoral pulses present. Ultrasound report reviewed. Case was discussed with Dr. Navarro as well as Dr. Christensen who would like interventional radiology to evaluate. Case discussed with Dr. Siddiqui come evaluate. (Tim Bray) Disposition <Simeon Jefferson - Last Filed: 06/17/20 11:46> Is patient prescribed a controlled substance at d/c from ED?: No Time of Disposition: 14:43 Decision Time: 15:04 <Tim Bray - Last Filed: 06/17/20 15:04> Clinical Impression: Pseudoaneurysm of femoral artery following procedure Disposition: ADMITTED IP TO THIS HOSP Condition: Stable Instructions (If sedation given, give patient instructions): Pseudoaneurysm (ED) Referrals: Sergio Gayle MD [Primary Care Provider] - 1-2 days Durga Christensen MD [STAFF PHYSICIAN] - 1-2 days
--- NOTE | 2020-06-17 12:18 | US ---
EXAMINATION TYPE: US lower ext pseudo artery LT DATE OF EXAM: 06/17/2020 COMPARISON: NONE CLINICAL HISTORY: pain, swelling. Heart cath performed yesterday. EXAM PERFORMED: Grayscale and color Doppler duplex imaging performed of the groin, post cardiac oralia ter to assess for pseudoaneurysm. SIDE PERFORMED: Left Color and Waveform Doppler performed to assess for the presence of pseudoaneurysm; Is there ultrasound evidence of a pseudoaneurysm: Yes, pseudoaneurysm visualized in left groin = 1.4 x 1.1 x 0.7 cm with neck - 0.4 x 0.3 cm, yin mojica sign is present on color Doppler Is there evidence of AV shunting: no Is there a fluid collection present: no limited visualization of CFV due to swelling and patient pain tolerance from bruising IMPRESSION: Small aneurysm left common femoral artery
[2020-06-17] MEDS ORDERED: THROMBIN (BOVINE) 5,000 UNIT VIAL MISCELLANE ONE (14:06)
[2020-06-17] MEDS ORDERED: NALOXONE 0.4 MG/ML 1 ML VIAL IV PRN (15:05)
[2020-06-17] MEDS ORDERED: SODIUM CHLORIDE 0.9% 1,000 ML IV SCH (15:15)
--- NOTE | 2020-06-17 15:46 | US ---
EXAMINATION TYPE: US compress pseudoaneurysm LT DATE OF EXAM: 06/17/2020 COMPARISON: Ultrasound left groin same date CLINICAL HISTORY: left groin pseudoaneurysm status post cardiac catheterization. EXAM PERFORMED: Grayscale and color Doppler duplex imaging performed of the groin, post cardiac oralia ter to assess for pseudoaneurysm. SIDE PERFORMED: Left Procedure: Graded compression performed of the left groin under color Doppler for approximately 15 mi nutes. Pseudoaneurysm shows thrombosis following the procedure. IMPRESSION: Successful graded compression left groin pseudoaneurysm. Follow-up left groin ultrasound recommended on 06/18/2020
[2020-06-17] MEDS: traMADol 50 MG TAB PO PRN (19:36)
[2020-06-17] MEDS: FERROUS SULFATE 325 MG TAB PO SCH (20:19)
[2020-06-17] MEDS ORDERED: TAMSULOSIN 0.4 MG CAP.ER.24H PO SCH (21:00)
[2020-06-17] MEDS ORDERED: MELATONIN 5 MG TABLET PO PRN (21:38)
--- NOTE | 2020-06-17 22:03 | P.HPIM ---
History of Present Illness H&P Date: 06/17/20 Chief Complaint: Left groin pseudoaneurysm, large hematoma of the left groin area, post hear 79-year-old male one of Dr. Sergio Gayle's patient with past medical history of CAD, CVA, hypertension, hyperlipidemia and valvular heart disease who had a heart cath yesterday with Dr. Christensen for complain and experiencing symptom of shortness of breath with exertion and? Off new involvement of coronary artery disease, underwent a heart catheter earlier which reveals intermediate to severe disease involving the LAD distal to SVG anastomosis surgery ended up attempt to do heart catheter from the left common femoral artery apparently after maneuver and zeroing the Doppler wire to the SVG to LAD ended came with a conclusion the severity of the blockage was less than expected and patient would benefit from medical management without having any angioplasty or stent placement. Intervention was aborted yesterday patient was kept in the hospital for 2 hours after the procedure and ended up going home afterward were patient had experienced significant swelling and hematoma of the left groin area with worsening pain and discomfort after calling cardiology patient was informed to return to demurs department his pain was much worse was seen in the emergency department patient ended up going Dr. Montague through pseudoaneurysm repair via graded compression which were performed at the left groin for about 15 minutes while been watch 31 ultrasound machine and pseudoaneurysm shows thrombosis following the procedure which was successfully quit the bleeding and the hemorrhage. Patient was admitted to the hospital afterward to stay in bed not to put any pressure on the groin area overnight while been watch for any further increasing hematoma the same time will be going back to radiology tomorrow for another ultrasound to make sure this pseudoaneurysm the hematoma has not been increase in size. Patient otherwise was stable no further chest pain anginal shortness of breath since his procedure was in for the severity and the discomfort of the left femoral pseudoaneurysm patient was doing well. Review of Systems CONSTITUTIONAL: Well-developed no acute respiratory distress. EYES: No icterus sclerae, no conjunctivitis. EARS, NOSE, MOUTH, THROAT, and FACE: No sore throat, lymphadenopathy, carotid bruits or deformity. RESPIRATORY: No SOB cough or wheezes. CARDIOVASCULAR: No CP, Palpitation, PND, Orthopnea, or angina. Post heart catheter yesterday with no further angina. GASTROINTESTINAL: No Abd pain, Nausea or vomiting, no Diarrhea or constipation, No GI Bleed, no distention or masses. GENITOURINARY: Negative for Hematuria or UTI, no kidney stones. INTEGUMENT/BREAST: Negative for any muscular injury with mild osteoarthritis.. HEMATOLOGIC/LYMPHATIC: Negative for bleed or purpura. MUSCULOSKELTAL: Negative for Myalgia or arthralgia. Large hematoma and pseudoaneurysm in the left groin area. NEURLOGICAL: No LOC, Sz or syncope, blurred vision dizziness or abnormality.. BEHAVIORAL/PSYCH: Negative. ENDOCRINE: Negative. Social history: He quit smoking 2014 used to smoke over a pack a day for 20 years. 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 Family history: Father age 77 from CAD, mother in her late 80s from old age, patient has sister with eye from CVA to brother with eye from COPD and another one from autoimmune disease. Patient has 4 children with no major medical problem. Past Medical History Past Medical History: Coronary Artery Disease (CAD), CVA/TIA, GERD/Reflux, Hearing Disorder / Deafness, Hyperlipidemia, Myocardial Infarction ([place]), Osteoarthritis (OA), Prostate Disorder Additional Past Medical History / Comment(s): "silent migraines-gets blurry vision", hx ulcer, anemia, "precancer lesion", multiple TIA's, occluded right carotid artery Last Myocardial Infarction Date:: 2013 History of Any Multi-Drug Resistant Organisms: None Reported Past Surgical History: Cardiac Valve Replacement, Coronary Bypass/CABG, Heart Catheterization, Joint Replacement, Orthopedic Surgery, Pacemaker, Tonsillectomy Additional Past Surgical History / Comment(s): rt elbow surgery, cataracts, open heart surgery- AORTIC VALVE AND MITRAL VALVE & double bypass 06-07-16 TOTAL LT KNEE, rt carotid surgery Past Anesthesia/Blood Transfusion Reactions: Motion Sickness Additional Past Anesthesia/Blood Transfusion Reaction / Comment(s): motion sickness as child Type of Cardiac Device: Permanent Pacemaker Device Placement Date:: 09/2019 Past Psychological History: No Psychological Hx Reported Smoking Status: Former smoker Past Alcohol Use History: Occasional Additional Past Alcohol Use History / Comment(s): formerly Smoked cigars occasionally - 2 CIGARS A DAY 20 YEARS. Past Drug Use History: None Reported - Past Family History Brother(s) Family Medical History: No Reported History Additional Family Medical History / Comment(s): Patient has 2 brothers that are living. One was Sjogren's and one has history of lung cancer. Sister(s) Additional Family Medical History / Comment(s): Patient has one half-sister at age 76 with history of smoking, COPD and TIA. Daughter(s) Additional Family Medical History / Comment(s): Patient has 2 sons with no major medical problems. Patient has 2 daughters and one has fibromyalgia. Father Family Medical History: Cancer Medications and Allergies Home Medications Medication Instructions Recorded Confirmed Type Cholecalciferol [Vitamin D3 (25 5,000 unit PO DAILY 09/26/16 06/17/20 History Mcg = 1000 Iu)] traMADol HCL [Ultram] 50 mg PO DAILY PRN 09/26/16 06/17/20 History Tamsulosin [Flomax] 0.8 mg PO HS 11/01/16 06/17/20 History Clopidogrel Bisulfate [Plavix] 75 mg PO DAILY 09/29/19 06/17/20 History Ferrous Sulfate [Iron (65 MG 325 mg PO BID 06/14/20 06/17/20 History Elemental)] Potassium Gluconate 99 mg PO DAILY 06/14/20 06/17/20 History Aspirin EC [Ecotrin Low Dose] 81 mg PO HS 06/17/20 06/17/20 History Furosemide [Lasix] 20 - 40 mg PO DAILY 06/17/20 06/17/20 History Allergies Allergy/AdvReac Type Severity Reaction Status Date / Time codeine AdvReac Hallucinati Verified 06/17/20 12:16 ons hydrocodone [From [place]] AdvReac Hallucinati Verified 06/17/20 12:16 ons morphine AdvReac arm pham Verified 06/17/20 12:16 and becomes beligerant Physical Exam Vitals: Vital Signs Temp Pulse Pulse Resp BP BP Pulse Ox 06/17/20 18:35 78 16 155/88 96 06/17/20 18:05 75 16 141/59 92 L 06/17/20 17:51 98.2 F 06/17/20 17:35 78 16 143/57 94 L 06/17/20 17:20 71 16 150/65 93 L 06/17/20 17:05 64 16 145/66 92 L 06/17/20 16:50 66 16 137/81 93 L 06/17/20 16:32 65 18 133/65 94 L 06/17/20 15:49 69 16 135/64 96 06/17/20 15:45 64 18 141/84 95 06/17/20 15:23 68 18 136/62 95 06/17/20 15:15 67 18 155/76 96 06/17/20 15:10 69 18 171/78 95 06/17/20 14:46 98.4 F 64 16 157/74 96 06/17/20 13:07 68 18 121/81 96 06/17/20 10:55 97.8 F 78 18 99 Intake and Output 06/17/20 06/17/20 06/17/20 06:59 14:59 22:59 Intake Total 200 Balance 200 Intake: Oral 200 Other: Voiding Method Urinal Weight 92.986 kg 92.986 kg General Appearance: Alert, cooperative, no distress, appears stated age. Neck HEENT: Supple, no lymphadenopathy, no thyroid enlargement, no carotid bruits. Lungs: Clear to auscultation without crackles or wheezes no rhonchi, no deformity. Chest Wall: Chest wall normal expansion with deep inspiration no tenderness and no deformity was found on exam, no costochondral pain or discomfort. Heart: Regular rate and rhythm, S1, S2 normal, no murmur, rub or gallop. Back: Symmetric, no curvature, ROM normal, no CVA tenderness. Abdomen: Soft, non-tender, bowel sounds active all four quadrants, no masses, no organomegaly. Extremities: Extremities normal, atraumatic, no cyanosis or edema. Left groin had very large hematoma, pulsation area of the left femoral artery area with good pulse in the popliteal and the dorsalis pedis in the left side. Pulses: 2+ and symmetric. Skin: Skin color, texture, tugor normal, no rashes or lesions. Neurologic: Alert oriented x3 cranial nerves II through XII intact, no motor deficit, no abnormal balance or gait. Thrombosis Risk Factor Assmnt - DVT/VTE Prophylaxis DVT/VTE Prophylaxis: Pharmacologic Prophylaxis ordered, Mechanical Prophylaxis ordered - Choose All That Apply Any of the Below Risk Factors Present?: Yes Each Factor Represents 1 point: Obesity (BMI >25) Other Risk Factors: Yes Each Risk Factor Represents 3 Points: Age 75 years or older Other congenital or acquired thrombophilia - If yes, enter type in comment: No Thrombosis Risk Factor Assessment Total Risk Factor Score: 4 Thrombosis Risk Factor Assessment Level: Moderate Risk Assessment and Plan Assessment: 1 large pseudoaneurysm in the left femoral area: Post graded compression under color Doppler which has caused thrombus in the pseudoaneurysm area stop the bleed. Patient be watch overnight will be going for another ultrasound or color Doppler to check into any further expansion of the pseudoaneurysm or enlargement of the hematoma. 2 severe atherosclerotic heart disease: With finding of the catheter with a blockage of the SVG to LAD the caliber of the vessel still reasonable does not require any angioplasty but advanced medical management. Patient to continue secondary prevention. 3 valvular heart disease: Post aortic valve replacement and mitral valve repair from 2013 with mild leak of the mitral valve remain. 4 Hyperlipidemia: Remain on atorvastatin 80 mg a day continue medication. 5 BPH: Patient remain on Flomax continue to watch for any urinary retention. 6 chronic edema: Remain on furosemide 20 mg a day. 7 chronic pain management: Remain on tramadol on as needed basis. 8 Previous history of CVA: With no residual at this point. 9 arrhythmia: Post pacemaker has been doing well. 10 GI prophylaxis: Patient will be on Pepcid 20 mg a day. 11 DVT prophylaxis: Early mobilization and knee-high ALYSE hose and be done. CODE STATUS: Full code. Admit patient to observation status for 1-2 nights stay.
[2020-06-17 23:24] VITALS: RESP 18
[2020-06-18 08:20] VITALS: BP 119/58; PULSE 65; TEMP 97.8
--- NOTE | 2020-06-18 08:31 | US ---
EXAMINATION TYPE: US lower ext pseudo artery LT DATE OF EXAM: 06/18/2020 COMPARISON: US 06/17/20 CLINICAL HISTORY: Pseudoaneurysm. Recheck pseudo EXAM PERFORMED: Grayscale and color Doppler duplex imaging performed of the groin, post cardiac oralia ter to assess for pseudoaneurysm. SIDE PERFORMED: Left Color and Waveform Doppler performed to assess for the presence of pseudoaneurysm; Pseudo compression done yesterday 1.4 x 0.7 x 0.9cm thrombosed pseudoaneurysm seen on today's study IMPRESSION: Thrombosed pseudoaneurysm as noted.
[2020-06-18] MEDS ORDERED: FUROSEMIDE 20 MG TAB PO SCH (09:00)
[2020-06-18] MEDS ORDERED: NON FORMULARY DRUG (Potassium Gluconate [Potassium Gluconate] 99 MG Tablet.Er) PO SCH (09:00)
[2020-06-18] MEDS ORDERED: FAMOTIDINE 20 MG TAB PO SCH (09:00)
[2020-06-18] MEDS ORDERED: CHOLECALCIFEROL 1,000 UNIT TAB PO SCH (09:00)
[2020-06-18] MEDS ORDERED: ASPIRIN 81 MG PO SCH (09:15)
[2020-06-18] MEDS: FERROUS SULFATE 325 MG TAB PO SCH (09:15)
[2020-06-18 09:23] LABS: HCT 34.1 % (39.0-53.0); HGB 11.1 gm/dL (13.0-17.5); MCHC 32.6 g/dL (31.0-37.0); MCV 85.9 fL (80.0-100.0); Mean Platelet Volume 7.3; Platelet Count 118 k/uL (150-450); RBC 3.97 m/uL (4.30-5.90); RDW 15.5 % (11.5-15.5); WBC 4.8 k/uL (3.8-10.6)
[2020-06-18] MEDS: traMADol 50 MG TAB PO PRN (09:25)
--- NOTE | 2020-06-18 10:27 | P.DS ---
Providers Date of admission: 06/17/20 15:05 Expected date of discharge: 06/18/20 Attending physician: Jimmie Shabazz Consults: 06/17/20 15:05 Consult Physician Urgent Consulting Provider: Durga Christensen Consult Reason/Comments: Pseudoephedrine Do you want consulting provider notified?: Yes Primary care physician[facility] Course: 79-year-old male one of Dr. Sergio Gayle's patient with past medical history of CAD, CVA, hypertension, hyperlipidemia and valvular heart disease who had a heart cath yesterday with Dr. Christensen for complain and experiencing symptom of sh ortness of breath with exertion and? Off new involvement of coronary artery disease, underwent a heart catheter earlier which reveals intermediate to severe disease involving the LAD distal to SVG anastomosis surgery ended up attempt to do heart catheter from the left common femoral artery apparently after maneuver and zeroing the Doppler wire to the SVG to LAD ended came with a conclusion the severity of the blockage was less than expected and patient would benefit from medical management without having any angioplasty or stent placement. Intervention was aborted yesterday patient was kept in the hospital for 2 hours after the procedure and ended up going home afterward were patient had experienced significant swelling and hematoma of the left groin area with worsening pain and discomfort after calling cardiology patient was informed to return to demurs department his pain was much worse was seen in the emergency department patient ended up going Dr. Montague through pseudoaneurysm repair via graded compression which were performed at the left groin for about 15 minutes while been watch 31 ultrasound machine and pseudoaneurysm shows thrombosis following the procedure which was successfully quit the bleeding and the hemorrhage. Patient was admitted to the hospital afterward to stay in bed not to put any pressure on the groin area overnight while been watch for any further increasing hematoma the same time will be going back to radiology tomorrow for another ultrasound to make sure this pseudoaneurysm the hematoma has not been increase in size. Patient otherwise was stable no further chest pain anginal shortness of breath since his procedure was in for the severity and the discomfort of the left femoral pseudoaneurysm patient was doing well. 06/18: Repeat ultrasound this morning reveals thrombosed pseudoaneurysm. Patient has been afebrile, heart rate 65, blood pressure 118/58, pulse ox 95% on room air. Hemoglobin is 11.1, platelet count 118. Patient has been seen by cardiology this morning with recommendations to hold Plavix until seen on Saturday by Dr. Christensen. Patient denies any complaints today. He is ambulatory without difficulty. He is anxious to go home. Patient will be discharged home today in stable condition. Discharge diagnoses: 1 large pseudoaneurysm in the left femoral area: Post graded compression left groin. 2 severe atherosclerotic heart disease: With finding of the catheter with a blockage of the SVG to LAD the caliber of the vessel still reasonable does not require any angioplasty but advanced medical management. 3 valvular heart disease: Post aortic valve replacement and mitral valve repair from 2013 with mild leak of the mitral valve remain. 4 Hyperlipidemia 5 BPH 6 chronic edema 7 chronic pain management 8 Previous history of CVA 9 arrhythmia: Post pacemaker Discharge plan: Home Impression and plan of care have been directed as dictated by the signing physician. Kristan Mobley nurse practitioner acting as scribe for signing physician. Patient Condition at Discharge: Stable Plan - Discharge Summary Discharge Rx Participant: No New Discharge Prescriptions: Continue traMADol HCL [Ultram] 50 mg PO DAILY PRN PRN Reason: Pain Cholecalciferol [Vitamin D3 (25 Mcg = 1000 Iu)] 5,000 unit PO DAILY Tamsulosin [Flomax] 0.8 mg PO HS Ferrous Sulfate [Iron (65 MG Elemental)] 325 mg PO BID Potassium Gluconate 99 mg PO DAILY Aspirin EC [Ecotrin Low Dose] 81 mg PO HS Furosemide [Lasix] 20 - 40 mg PO DAILY Discontinued Clopidogrel Bisulfate [Plavix] 75 mg PO DAILY Discharge Medication List Cholecalciferol [Vitamin D3 (25 Mcg = 1000 Iu)] 5,000 unit PO DAILY 09/26/16 [History] traMADol HCL [Ultram] 50 mg PO DAILY PRN 09/26/16 [History] Tamsulosin [Flomax] 0.8 mg PO HS 11/01/16 [History] Ferrous Sulfate [Iron (65 MG Elemental)] 325 mg PO BID 06/14/20 [History] Potassium Gluconate 99 mg PO DAILY 06/14/20 [History] Aspirin EC [Ecotrin Low Dose] 81 mg PO HS 06/17/20 [History] Furosemide [Lasix] 20 - 40 mg PO DAILY 06/17/20 [History] Follow up Appointment(s)/Referral(s): Durga Christensen MD [STAFF PHYSICIAN] - 06/21/20 2:00 pm (Appointment will be at the new location on [facility] and [address] [place] [address] at [facility] per Svetlana in office) Sergio Gayle MD [Primary Care Provider] - 1 Week (office closed please call to schedule ) Patient Instructions/Handouts: Pseudoaneurysm (ED) Activity/Diet/Wound Care/Special Instructions: Hold Plavix and still seen by Dr. Christensen Discharge Disposition: HOME SELF-CARE
--- NOTE | 2020-06-18 13:17 | P.CRDCN ---
History of Present Illness History of present illness: HISTORY OF PRESENTING ILLNESS This is a pleasant 79-year-old occasion male past medical history significant for coronary artery disease status post bypass grafting 2015, peripheral vascular disease status post right carotid endarterectomy, valvular heart disease status post prosthetic aortic valve replacement, permanent pacemaker implantation, hypertension and dyslipidemia. He follows in the office with Dr. Christensen. We have been asked to see in consultation for evidence of pseudoaneurysm status post cardiac catheterization. Patient underwent cardiac catheterization June 16 via the left femoral artery for FFR of the LAD which came to be nonischemic. He started noticing increased swelling, tenderness and bruising at the site prompting him to come to the hospital for further evaluation. Ultrasound revealed a small aneurysm in the left femoral artery. He underwent compression which did reduce the aneurysm. Repeat ultrasound this morning revealed thrombosed pseudoaneurysm. The patient is seen and examined resting comfortably in no acute distress. He has no symptoms of chest pain, shortness of breath, dizziness or palpitations. He has been up and ambulating without di fficulty. He has ongoing mild tenderness at the femoral access site with ecchymosis noted. Laboratory data reviewed, WBC 4.8, hemoglobin 11.1 and platelets 118. REVIEW OF SYSTEMS At the time of my exam: CONSTITUTIONAL: Denies fever or chills. CARDIOVASCULAR: Denies chest pain, shortness of breath, orthopnea, PND or palpitations. RESPIRATORY: Denies cough. GASTROINTESTINAL: Denies abdominal pain, diarrhea, constipation, nausea or vomiting. MUSCULOSKELETAL: Denies myalgias. Complains of tenderness on palpation the left groin. NEUROLOGIC: Denies numbness, tingling or weakness. ENDOCRINE: Denies fatigue, weight change, polydipsia or polyurina. GENITOURINARY: Denies burning, hematuria or urgency with micturation. HEMATOLOGIC: Denies history of anemia or bleeding. PHYSICAL EXAMINATION Blood pressure 119/58 heart rate 65 afebrile and maintaining oxygen saturation on room air. CONSTITUTIONAL: No apparent distress. HEENT: Head is normocephalic. Pupils are equal, round. Sclerae anicteric. Mucous membranes of the mouth are moist. No JVD. No carotid bruit. CHEST EXAMINATION: Lungs are clear to auscultation. No chest wall tenderness is noted on palpation or with deep breathing. HEART EXAMINATION: Regular rate and rhythm. S1, S2 heard. Systolic ejection murmur at the apex, no gallops or rub. ABDOMEN: Soft, nontender. Positive bowel sounds. EXTREMITIES: 2+ peripheral pulses, no lower extremity edema and no calf tenderness. Left femoral access site with ecchymosis into the medial left thigh with tenderness on palpation, no thrill on palpation, no hematoma and no active bleeding. NEUROLOGIC EXAMINATION: Patient is awake, alert and oriented x3. ASSESSMENT Left femoral pseudoaneurysm Coronary artery disease status post bypass grafting PLAN Stable for discharge from a cardiac perspective. Recommend continuing aspirin 81 mg daily and holding Plavix until he sees Dr. Christensen in the office next week. Thank you kindly for this consultation. Nurse Practitioner note has been reviewed, I agree with a documented findings and plan of care. Patient was seen and examined. Past Medical History Past Medical History: Coronary Artery Disease (CAD), CVA/TIA, GERD/Reflux, Hearing Disorder / Deafness, Hyperlipidemia, Myocardial Infarction ([place]), Osteoarthritis (OA), Prostate Disorder Additional Past Medical History / Comment(s): "silent migraines-gets blurry vision", hx ulcer, anemia, "precancer lesion", multiple TIA's, occluded right carotid artery Last Myocardial Infarction Date:: 2013 History of Any Multi-Drug Resistant Organisms: None Reported Past Surgical History: Cardiac Valve Replacement, Coronary Bypass/CABG, Heart Catheterization, Joint Replacement, Orthopedic Surgery, Pacemaker, Tonsillectomy Additional Past Surgical History / Comment(s): rt elbow surgery, cataracts, open heart surgery- AORTIC VALVE AND MITRAL VALVE & double bypass 2014, 06-07-16 TOTAL LT KNEE, rt carotid surgery Past Anesthesia/Blood Transfusion Reactions: Motion Sickness Additional Past Anesthesia/Blood Transfusion Reaction / Comment(s): motion sickness as child Type of Cardiac Device: Permanent Pacemaker Device Placement Date:: 09/2019 Past Psychological History: No Psychological Hx Reported Smoking Status: Former smoker Past Alcohol Use History: Occasional Additional Past Alcohol Use History / Comment(s): formerly Smoked cigars occasionally - 2 CIGARS A DAY 20 YEARS. Past Drug Use History: None Reported - Past Family History Brother(s) Family Medical History: No Reported History Additional Family Medical History / Comment(s): Patient has 2 brothers that are living. One was Sjogren's and one has history of lung cancer. Sister(s) Additional Family Medical History / Comment(s): Patient has one half-sister at age 76 with history of smoking, COPD and TIA. Daughter(s) Additional Family Medical History / Comment(s): Patient has 2 sons with no major medical problems. Patient has 2 daughters and one has fibromyalgia. Father Family Medical History: Cancer Medications and Allergies Home Medications Medication Instructions Recorded Confirmed Type Cholecalciferol [Vitamin D3 (25 5,000 unit PO DAILY 09/26/16 06/17/20 History Mcg = 1000 Iu)] traMADol HCL [Ultram] 50 mg PO DAILY PRN 09/26/16 06/17/20 History Tamsulosin [Flomax] 0.8 mg PO HS 11/01/16 06/17/20 History Ferrous Sulfate [Iron (65 MG 325 mg PO BID 06/14/20 06/17/20 History Elemental)] Potassium Gluconate 99 mg PO DAILY 06/14/20 06/17/20 History Aspirin EC [Ecotrin Low Dose] 81 mg PO HS 06/17/20 06/17/20 History Furosemide [Lasix] 20 - 40 mg PO DAILY 06/17/20 06/17/20 History Allergies Allergy/AdvReac Type Severity Reaction Status Date / Time codeine AdvReac Hallucinati Verified 06/17/20 12:16 ons hydrocodone [From [place]] AdvReac Hallucinati Verified 06/17/20 12:16 ons morphine AdvReac arm pham Verified 06/17/20 12:16 and becomes beligerant Physical Exam Vitals: Vital Signs Temp Pulse Pulse Resp BP BP Pulse Ox 06/18/20 08:18 97.8 F 65 18 119/58 95 06/18/20 03:00 98.1 F 69 18 102/46 94 L 06/17/20 21:00 99.2 F 18 160/72 94 L 06/17/20 18:35 78 16 155/88 96 06/17/20 18:05 75 16 141/59 92 L 06/17/20 17:51 98.2 F 06/17/20 17:35 78 16 143/57 94 L 06/17/20 17:20 71 16 150/65 93 L 06/17/20 17:05 64 16 145/66 92 L 06/17/20 16:50 66 16 137/81 93 L 06/17/20 16:32 65 18 133/65 94 L 06/17/20 15:49 69 16 135/64 96 06/17/20 15:45 64 18 141/84 95 06/17/20 15:23 68 18 136/62 95 06/17/20 15:15 67 18 155/76 96 06/17/20 15:10 69 18 171/78 95 06/17/20 14:46 98.4 F 64 16 157/74 96 Intake and Output 06/17/20 06/18/20 06/18/20 22:59 06:59 14:59 Intake Total 200 Balance 200 Intake: Oral 200 Other: Voiding Method Urinal Toilet # Voids 1 1 Weight 92.986 kg Results 06/18/20 08:18 CBC 06/18/20 Range/Units 08:18 WBC 4.8 (3.8-10.6) k/uL RBC 3.97 L (4.30-5.90) m/uL Hgb 11.1 L (13.0-17.5) gm/dL Hct 34.1 L (39.0-53.0) % Plt Count 118 L (150-450) k/uL Intake and Output 06/17/20 06/18/20 06/18/20 22:59 06:59 14:59 Intake Total 200 Balance 200 Intake: Oral 200 Other: Voiding Method Urinal Toilet # Voids 1 1 Weight 92.986 kg 06/18/20 08:18
== END 2020-06-18 10:35 | disposition home or self-care (01) ==
LOC: EC 10:52 → 1SOBS 15:05
PROVIDERS: ADMIT Internal Medicine Geriatric Medicine; ATTEND Internal Medicine Geriatric Medicine
DX: I72.4 Aneurysm of artery of lower extremity (principal); I25.10 Atherosclerotic heart disease of native coronary artery without angina pectoris; Z86.73 Personal history of transient ischemic attack (TIA), and cerebral infarction without residual deficits; K21.9 Gastro-esophageal reflux disease without esophagitis; I10 Essential (primary) hypertension; E78.5 Hyperlipidemia, unspecified; D64.9 Anemia, unspecified; I25.2 Old myocardial infarction; M19.90 Unspecified osteoarthritis, unspecified site; E07.9 Disorder of thyroid, unspecified; G43.809 Other migraine, not intractable, without status migrainosus; I65.21 Occlusion and stenosis of right carotid artery; Z95.0 Presence of cardiac pacemaker; Z98.49 Cataract extraction status, unspecified eye; Z95.2 Presence of prosthetic heart valve; Z87.891 Personal history of nicotine dependence; Z95.1 Presence of aortocoronary bypass graft; Z96.652 Presence of left artificial knee joint; Z98.890 Other specified postprocedural states; Z80.1 Family history of malignant neoplasm of trachea, bronchus and lung; Z83.2 Family history of diseases of the blood and blood-forming organs and certain disorders involving the immune mechanism; Z82.3 Family history of stroke; Z82.5 Family history of asthma and other chronic lower respiratory diseases; Z82.69 Family history of other diseases of the musculoskeletal system and connective tissue; Z79.02 Long term (current) use of antithrombotics/antiplatelets; Z79.82 Long term (current) use of aspirin; Z79.891 Long term (current) use of opiate analgesic; Z79.899 Other long term (current) drug therapy; Z88.5 Allergy status to narcotic agent
CPT/HCPCS: 99284; 85027; 93975 ×2; 76936; 93926 ×2; G0378 ×2

== ENCOUNTER 2020-06-22 09:56 | Emergency (ER) | payer MEDICARE ==
[2020-06-22 10:03] VITALS: RESP 18
--- NOTE | 2020-06-22 11:00 | US ---
EXAMINATION TYPE: US lower ext pseudo artery LT DATE OF EXAM: 06/22/2020 COMPARISON: Ultrasound left pseudoaneurysm compression 06/17/2020, ultrasound left pseudoaneurysm CLINICAL HISTORY: Recent pseudoaneurysm with repair. Pt states persistent lump left groin/ history of recent left pseudo repair EXAM PERFORMED: Grayscale and color Doppler duplex imaging performed of the groin, post cardiac oralia ter to assess for pseudoaneurysm. SIDE PERFORMED: Left Color and Waveform Doppler performed to assess for the presence of pseudoaneurysm; Is there ultrasound evidence of a pseudoaneurysm: No Is there evidence of AV shunting: No Is there a fluid collection present: No Left groin similar in appearance from post pseudoaneurysm compression 06/17/2020, with no evidence of recurrent pseudoaneurysm. Thrombosed hypoechoic pseudoaneurysm sac measuring 1.5 x 0.6 x 1.0 cm, w ith no internal color flow detected. IMPRESSION: Redemonstrated thrombosed 1.5 cm pseudoaneurysm sac, with no evidence of recurrent pseudoaneurysm or internal flow.
--- NOTE | 2020-06-22 12:30 | ED ---
General Adult HPI - General Chief complaint: Recheck/Abnormal Lab/Rx Stated complaint: poss aneurysm-revisit Time Seen by Provider: 06/22/20 10:00 Source: patient Mode of arrival: ambulatory Limitations: no limitations - History of Present Illness Initial comments: Patient is an 79-year-old male presents the emergency department with reported bump in his left groin. The patient had a heart catheterization done on the . Valuated on and was found to have a pseudoaneurysm. This was repaired and the patient's of the night in the hospital. He states that his pain in the right groin was markedly improved at this time. The patient then awoke this morning and had worsening left groin pain and felt a palpable nodule. He was told that if he felt any type of swelling in his groin that he needed to come back to the emergency room for evaluation. His earth burner is Dr. Christensen. Denies any numbness, tingling or weakness into his lower extremity. No fevers or chills. Denies any abdominal pain. No other alleviating, precipitating or modifying factors - Related Data Home Medications Medication Instructions Recorded Confirmed Cholecalciferol [Vitamin D3 (25 5,000 unit PO DAILY 09/26/16 06/22/20 Mcg = 1000 Iu)] traMADol HCL [Ultram] 50 mg PO DAILY PRN 09/26/16 06/22/20 Tamsulosin [Flomax] 0.8 mg PO HS 11/01/16 06/22/20 Ferrous Sulfate [Iron (65 MG 325 mg PO BID 06/14/20 06/22/20 Elemental)] Potassium Gluconate 99 mg PO DAILY 06/14/20 06/22/20 Aspirin EC [Ecotrin Low Dose] 81 mg PO HS 06/17/20 06/22/20 Furosemide [Lasix] 20 - 40 mg PO DAILY 06/17/20 06/22/20 Allergies Allergy/AdvReac Type Severity Reaction Status Date / Time codeine AdvReac Hallucinati Verified 06/22/20 10:51 ons hydrocodone [From [place]] AdvReac Hallucinati Verified 06/22/20 10:51 ons morphine AdvReac arm pham Verified 06/22/20 10:51 and becomes beligerant Review of Systems ROS Statement: Those systems with pertinent positive or pertinent negative responses have been documented in the HPI. ROS Other: All systems not noted in ROS Statement are negative. Past Medical History Past Medical History: Coronary Artery Disease (CAD), CVA/TIA, GERD/Reflux, Hearing Disorder / Deafness, Hyperlipidemia, Myocardial Infarction ([place]), Osteoarthritis (OA), Prostate Disorder Additional Past Medical History / Comment(s): "silent migraines-gets blurry vision", hx ulcer, anemia, "precancer lesion", multiple TIA's, occluded right carotid artery Last Myocardial Infarction Date:: 2013 History of Any Multi-Drug Resistant Organisms: None Reported Past Surgical History: Cardiac Valve Replacement, Coronary Bypass/CABG, Heart Catheterization, Joint Replacement, Orthopedic Surgery, Pacemaker, Tonsillectomy Additional Past Surgical History / Comment(s): rt elbow surgery, cataracts, open heart surgery- AORTIC VALVE AND MITRAL VALVE & double bypass 2014, 06-07-16 TOTAL LT KNEE, rt carotid surgery Past Anesthesia/Blood Transfusion Reactions: Motion Sickness Additional Past Anesthesia/Blood Transfusion Reaction / Comment(s): motion sickness as child Type of Cardiac Device: Permanent Pacemaker Device Placement Date:: 09/2019 Past Psychological History: No Psychological Hx Reported Smoking Status: Former smoker Past Alcohol Use History: Occasional Past Drug Use History: None Reported - Past Family History Brother(s) Family Medical History: No Reported History Additional Family Medical History / Comment(s): Patient has 2 brothers that are living. One was Sjogren's and one has history of lung cancer. Sister(s) Additional Family Medical History / Comment(s): Patient has one half-sister at age 76 with history of smoking, COPD and TIA. Daughter(s) Additional Family Medical History / Comment(s): Patient has 2 sons with no major medical problems. Patient has 2 daughters and one has fibromyalgia. Father Family Medical History: Cancer General Exam Limitations: no limitations General appearance: alert, in no apparent distress Cardiovascular Exam: Present: regular rate, normal rhythm, normal heart sounds. Absent: systolic murmur, diastolic murmur, rubs, gallop, clicks GI/Abdominal exam: Present: soft, normal bowel sounds, other (palpable nodule left femoral region. Ecchymosis overlying the area and extending down medial and posterior left thigh. Palpable femoral, DP and PT pulses bilaterally. Cap refill <2 seconds in b/l le). Absent: distended, tenderness, guarding, rebound, rigid Course Vital Signs 06/22/20 06/22/20 09:59 12:50 Temperature 98.4 F 98.2 F Pulse Rate 69 72 Respiratory 18 18 Rate Blood Pressure 132/70 128/68 O2 Sat by Pulse 98 98 Oximetry Medical Decision Making - Medical Decision Making Upon arrival patient was placed into room 8. A thorough history and physical exam was performed. Patient does have an ultrasound repeated of his left groin. He does demonstrate the thrombosed 1.5 cm pseudoaneurysm sac with no evidence of recurrent pseudoaneurysm or internal flow. I did discuss results with Dr. Christensen. Patient is notified of the information. He may be discharged home at this time and is to follow-up with Dr. Christensen in office. Return to the emergency department for any new or worsening symptoms. Patient understood this and was discharged home in stable condition Disposition Clinical Impression: Pseudoaneurysm of femoral artery following procedure Disposition: HOME SELF-CARE Condition: Stable Instructions (If sedation given, give patient instructions): Pseudoaneurysm (ED) Additional Instructions: Please follow-up with your primary care doctor. I also recommended you see Dr. Christensen. Return to the emergency room for any new or worsening symptoms Is patient prescribed a controlled substance at d/c from ED?: No Referrals: Sergio Gayle MD [Primary Care Provider] - 1-2 days Durga Christensen MD [STAFF PHYSICIAN] - 1-2 days Time of Disposition: 12:30
[2020-06-22 12:57] VITALS: BP 128/68; PULSE 72; TEMP 98.2
== END 2020-06-22 12:50 | disposition home or self-care (01) ==
LOC: EC 09:56
DX: T81.718A Complication of other artery following a procedure, not elsewhere classified, initial encounter (principal); R10.32 Left lower quadrant pain; M19.90 Unspecified osteoarthritis, unspecified site; H91.90 Unspecified hearing loss, unspecified ear; I25.2 Old myocardial infarction; Z79.82 Long term (current) use of aspirin; Z79.899 Other long term (current) drug therapy; Z88.5 Allergy status to narcotic agent; Z86.73 Personal history of transient ischemic attack (TIA), and cerebral infarction without residual deficits; Z87.891 Personal history of nicotine dependence; Z96.60 Presence of unspecified orthopedic joint implant
CPT/HCPCS: 93975; 99284

== ENCOUNTER → 2020-07-13 | Outpatient (CLI) | payer MEDICARE ==
--- NOTE | 2020-07-13 13:02 | CT ---
EXAMINATION TYPE: CT iac w con DATE OF EXAM: 07/13/2020 COMPARISON: CT brain September 29, 2019 prior MRI brain June 29, 2011 HISTORY: Hearing loss left sided without other symptoms. CT DLP: 150 mGycm. Automated Exposure Control for Dose Reduction was Utilized. TECHNIQUE: CT scan of internal auditory canal is performed with IV contrast, thin cut axial images ar e obtained, coronal reformatted images are also reviewed. Patient is injected with 100 cc [id number]-300 . FINDINGS: The external auditory canals show mild patchy cerumen bilaterally. Mastoid air cells show n o evidence of new abnormal opacification bilaterally. The middle ear ossicles are symmetric and unremarkable. There is no evidence of suspicious surroundi ng soft tissue density to suggest cholesteatoma. The scutum is preserved bilaterally. The cochlea and the semicircular canals are symmetric and unremarkable. Vestibular aqueduct and inte rnal carotid canal appear unremarkable. Temporomandibular joints are maintained bilaterally. Mild mucosal thickening involving bilateral ethm oid and inferior frontal sinuses along with visualized portion of the left maxillary sinus. Mucous re tention cyst or polyp in the inferior right maxillary sinus is redemonstrated. Visualized portion brain parenchyma is felt within normal limits. Mild calcified plaque petrous and s upraclinoid segment of distal internal carotid arteries bilaterally is redemonstrated. No suspicious enhancement is seen. IMPRESSION: No significant new abnormality seen to account for patient's symptoms of left-sided heari ng loss.
== END | disposition home or self-care (01) ==
LOC: RADCTMAIN 10:54
PROVIDERS: ATTEND Otolaryngology
DX: H91.92 Unspecified hearing loss, left ear (principal); Z88.5 Allergy status to narcotic agent
CPT/HCPCS: 82565; 84520; 70481; 36415; Q9967

== ENCOUNTER → 2021-08-25 | Outpatient (CLI) | payer MEDICARE | END | disposition home or self-care (01) | LOC: LABWHC1 11:04 | PROVIDERS: ATTEND Surgery Vascular Surgery | DX: H91.90 Unspecified hearing loss, unspecified ear (principal) | CPT/HCPCS: 36415; 82565; 84520 ==

== ENCOUNTER 2021-11-17 10:16 | Observation (INO) | payer MEDICARE ==
--- NOTE | 2021-11-17 11:02 | ED ---
General Adult HPI - General Chief complaint: Shortness of Breath Stated complaint: SOB/Back Pain Time Seen by Provider: 11/17/21 10:27 Source: patient, RN notes reviewed, old records reviewed Mode of arrival: ambulatory Limitations: no limitations - History of Present Illness Initial comments: 81-year-old male presenting for evaluation of mid back pain and increased dyspnea over the past 3 or 4 days. No fever. No cough. No central chest pain. Patient has history of CAD status post open heart surgery. He is anticoagulated on eliquis. Patient denies injury. Denies vomiting or diaphoresis. - Related Data Home Medications Medication Instructions Recorded Confirmed Cholecalciferol [Vitamin D3 (25 5,000 unit PO DAILY 09/26/16 06/22/20 Mcg = 1000 Iu)] traMADol HCL [Ultram] 50 mg PO DAILY PRN 09/26/16 06/22/20 Tamsulosin [Flomax] 0.8 mg PO HS 11/01/16 06/22/20 Ferrous Sulfate [Iron (65 MG 325 mg PO BID 06/14/20 06/22/20 Elemental)] Potassium Gluconate [Potassium 99 mg PO DAILY 06/14/20 06/22/20 Gluconate ER] Aspirin EC [Ecotrin Low Dose] 81 mg PO HS 06/17/20 06/22/20 Furosemide [Lasix] 20 - 40 mg PO DAILY 06/17/20 06/22/20 Allergies Allergy/AdvReac Type Severity Reaction Status Date / Time codeine AdvReac Hallucinati Verified 11/17/21 10:24 ons hydrocodone [From [place]] AdvReac Hallucinati Verified 11/17/21 10:24 ons morphine AdvReac arm pham Verified 11/17/21 10:24 and becomes beligerant Review of Systems ROS Statement: Those systems with pertinent positive or pertinent negative responses have been documented in the HPI. ROS Other: All systems not noted in ROS Statement are negative. Past Medical History Past Medical History: Coronary Artery Disease (CAD), CVA/TIA, GERD/Reflux, Hearing Disorder / Deafness, Hyperlipidemia, Myocardial Infarction ([place]), Osteoarthritis (OA), Prostate Disorder Additional Past Medical History / Comment(s): "silent migraines-gets blurry vision", hx ulcer, anemia, "precancer lesion", multiple TIA's, occluded right carotid artery Last Myocardial Infarction Date:: 2013 History of Any Multi-Drug Resistant Organisms: None Reported Past Surgical History: Cardiac Valve Replacement, Coronary Bypass/CABG, Heart Catheterization, Joint Replacement, Orthopedic Surgery, Pacemaker, Tonsillectomy Additional Past Surgical History / Comment(s): rt elbow surgery, cataracts, open heart surgery- AORTIC VALVE AND MITRAL VALVE & double bypass 2014, 06-07-16 TOTAL LT KNEE, rt carotid surgery Past Anesthesia/Blood Transfusion Reactions: Motion Sickness Additional Past Anesthesia/Blood Transfusion Reaction / Comment(s): motion sickness as child Type of Cardiac Device: Permanent Pacemaker Device Placement Date:: 09/2019 Past Psychological History: No Psychological Hx Reported Smoking Status: Former smoker Past Alcohol Use History: Occasional Past Drug Use History: None Reported - Past Family History Brother(s) Family Medical History: No Reported History Additional Family Medical History / Comment(s): Patient has 2 brothers that are living. One was Sjogren's and one has history of lung cancer. Sister(s) Additional Family Medical History / Comment(s): Patient has one half-sister at age 76 with history of smoking, COPD and TIA. Daughter(s) Additional Family Medical History / Comment(s): Patient has 2 sons with no major medical problems. Patient has 2 daughters and one has fibromyalgia. Father Family Medical History: Cancer General Exam Limitations: no limitations General appearance: alert, in no apparent distress Head exam: Present: atraumatic, normocephalic Eye exam: Present: normal appearance, PERRL Neck exam: Present: normal inspection. Absent: tenderness, meningismus Respiratory exam: Present: normal lung sounds bilaterally. Absent: respiratory distress, wheezes Cardiovascular Exam: Present: regular rate, normal rhythm, systolic murmur GI/Abdominal exam: Present: soft. Absent: distended, tenderness, guarding Extremities exam: Present: normal inspection, normal capillary refill. Absent: pedal edema, calf tenderness Neurological exam: Present: alert, oriented X3 Skin exam: Present: warm, dry, intact. Absent: cyanosis, diaphoretic Course Vital Signs 11/17/21 11/17/21 11/17/21 10:21 10:30 10:42 Temperature 98.4 F Pulse Rate 66 69 Respiratory 18 18 18 Rate Blood Pressure 141/75 162/85 O2 Sat by Pulse 97 98 Oximetry 11/17/21 11:50 Temperature Pulse Rate 71 Respiratory 18 Rate Blood Pressure 144/95 O2 Sat by Pulse 96 Oximetry EKG Findings - EKG Comments: EKG Findings:: EKG: Paced rhythm rate of 65 QRS duration 167, QTC 453 Medical Decision Making - Medical Decision Making 81-year-old male history of CAD presenting with an upper mid back discomfort over the past several days and increased dyspnea and generalized weakness. EKG is paced rhythm. Chest x-ray is clear no large focal pneumonia or acute findings. Patient has relatively normal laboratory testing including a negative initial troponin, negative d-dimer. Given his risk factors he will be kept in observation for telemetry, repeat cardiac enzymes and cardiology consultation. Case discussed with [place] physician group. - Lab Data Result diagrams: 11/17/21 10:56 11/17/21 10:56 Lab Results 11/17/21 11/17/21 11/17/21 Range/Units 10:56 10:56 10:56 WBC 4.5 (3.8-10.6) k/uL RBC 4.87 (4.30-5.90) m/uL Hgb 13.4 (13.0-17.5) gm/dL Hct 41.7 (39.0-53.0) % MCV 85.5 (80.0-100.0) fL MCH 27.6 (25.0-35.0) pg MCHC 32.2 (31.0-37.0) g/dL RDW 16.0 H (11.5-15.5) % Plt Count 157 (150-450) k/uL MPV 7.6 Neutrophils % 58 % Lymphocytes % 26 % Monocytes % 7 % Eosinophils % 5 % Basophils % 1 % Neutrophils # 2.6 (1.3-7.7) k/uL Lymphocytes # 1.2 (1.0-4.8) k/uL Monocytes # 0.3 (0-1.0) k/uL Eosinophils # 0.2 (0-0.7) k/uL Basophils # 0.0 (0-0.2) k/uL Hypochromasia Slight PT 10.4 (9.0-12.0) sec INR 0.9 (<1.2) APTT 27.5 (22.0-30.0) sec D-Dimer 0.42 (<0.60) mg/L FEU Sodium 140 (137-145) mmol/L Potassium 4.6 (3.5-5.1) mmol/L Chloride 106 (98-107) mmol/L Carbon Dioxide 28 (22-30) mmol/L Anion Gap 6 mmol/L BUN 24 H (9-20) mg/dL Creatinine 0.98 (0.66-1.25) mg/dL Est GFR (CKD-EPI)AfAm 83 (>60 ml/min/1.73 sqM) Est GFR (CKD-EPI)NonAf 72 (>60 ml/min/1.73 sqM) Glucose 117 H (74-99) mg/dL Plasma Lactic Acid Vitaly (0.7-2.0) mmol/L Calcium 9.2 (8.4-10.2) mg/dL Total Bilirubin 1.1 (0.2-1.3) mg/dL AST 32 (17-59) U/L ALT 15 (4-49) U/L Alkaline Phosphatase 64 (38-126) U/L Troponin I (0.000-0.034) ng/mL NT-Pro-B Natriuret Pep pg/mL Total Protein 7.2 (6.3-8.2) g/dL Albumin 4.3 (3.5-5.0) g/dL 11/17/21 11/17/21 11/17/21 Range/Units 10:56 10:56 10:56 WBC (3.8-10.6) k/uL RBC (4.30-5.90) m/uL Hgb (13.0-17.5) gm/dL Hct (39.0-53.0) % MCV (80.0-100.0) fL MCH (25.0-35.0) pg MCHC (31.0-37.0) g/dL RDW (11.5-15.5) % Plt Count (150-450) k/uL MPV Neutrophils % % Lymphocytes % % Monocytes % % Eosinophils % % Basophils % % Neutrophils # (1.3-7.7) k/uL Lymphocytes # (1.0-4.8) k/uL Monocytes # (0-1.0) k/uL Eosinophils # (0-0.7) k/uL Basophils # (0-0.2) k/uL Hypochromasia PT (9.0-12.0) sec INR (<1.2) APTT (22.0-30.0) sec D-Dimer (<0.60) mg/L FEU Sodium (137-145) mmol/L Potassium (3.5-5.1) mmol/L Chloride (98-107) mmol/L Carbon Dioxide (22-30) mmol/L Anion Gap mmol/L BUN (9-20) mg/dL Creatinine (0.66-1.25) mg/dL Est GFR (CKD-EPI)AfAm (>60 ml/min/1.73 sqM) Est GFR (CKD-EPI)NonAf (>60 ml/min/1.73 sqM) Glucose (74-99) mg/dL Plasma Lactic Acid Vitaly 0.9 (0.7-2.0) mmol/L Calcium (8.4-10.2) mg/dL Total Bilirubin (0.2-1.3) mg/dL AST (17-59) U/L ALT (4-49) U/L Alkaline Phosphatase (38-126) U/L Troponin I 0.026 (0.000-0.034) ng/mL NT-Pro-B Natriuret Pep 774 pg/mL Total Protein (6.3-8.2) g/dL Albumin (3.5-5.0) g/dL Disposition Clinical Impression: S/P CABG (coronary artery bypass graft), S/P mitral valve repair, Atypical chest pain Disposition: ADMITTED IP TO THIS [facility] Condition: Stable Is patient prescribed a controlled substance at d/c from ED?: No Referrals: Sergio Gayle MD [Primary Care Provider] - 1-2 days Time of Disposition: 12:15
[2021-11-17 11:12] LABS: Basophils % (A) 1 %; Eosinophils # (A) 0.2 k/uL (0-0.7); Eosinophils % (A) 5 %; HCT 41.7 % (39.0-53.0); HGB 13.4 gm/dL (13.0-17.5); Hypochromasia Slight; Lymphocytes # (A) 1.2 k/uL (1.0-4.8); Lymphocytes % (A) 26 %; MCH 27.6 pg (25.0-35.0); MCHC 32.2 g/dL (31.0-37.0); MCV 85.5 fL (80.0-100.0); Mean Platelet Volume 7.6; Monocytes # (A) 0.3 k/uL (0-1.0); Monocytes % (A) 7 %; Neutrophils # (A) 2.6 k/uL (1.3-7.7); Neutrophils % (A) 58 %; Platelet Count 157 k/uL (150-450); RBC 4.87 m/uL (4.30-5.90); WBC 4.5 k/uL (3.8-10.6)
[2021-11-17 11:24] LABS: Albumin 4.3 g/dL (3.5-5.0); Calcium 9.2 mg/dL (8.4-10.2); Potassium 4.6 mmol/L (3.5-5.1); Total Bilirubin 1.1 mg/dL (0.2-1.3); Total Protein 7.2 g/dL (6.3-8.2)
[2021-11-17 11:38] LABS: INR 0.9 (<1.2); Partial Thromboplastin Time 27.5 sec (22.0-30.0); Prothrombin Time 10.4 sec (9.0-12.0)
--- NOTE | 2021-11-17 11:52 | XR ---
EXAMINATION TYPE: XR chest 2V DATE OF EXAM: 11/17/2021 COMPARISON: Chest x-ray 10/02/2019 HISTORY: Difficulty breathing TECHNIQUE: Frontal and lateral views of the chest are obtained. FINDINGS: There is a generator in left pectoral region, leads in the right atrium and ventricle. Pat ient shows cardiac valve replacement, post median sternotomy change. No evident pneumothorax or pleur al effusion. Right hemidiaphragm is elevated. Patient is rotated. Cardiac mediastinal silhouette is s table. IMPRESSION: No acute cardiopulmonary process. Stable findings.
[2021-11-17] MEDS ORDERED: NALOXONE 0.4 MG/ML 1 ML VIAL IV PRN (12:16)
[2021-11-17] MEDS ORDERED: ACETAMINOPHEN TAB 325 MG TAB PO PRN ×2 (12:16→15:05)
[2021-11-17] MEDS ORDERED: NITROGLYCERIN SL TABS 0.4 MG TAB SUBLINGUAL PRN (12:17)
[2021-11-17] MEDS ORDERED: CYCLOBENZAPRINE 5 MG TAB PO PRN (15:05)
[2021-11-17] MEDS ORDERED: FUROSEMIDE 20 MG TAB PO PRN (15:05)
[2021-11-17] MEDS ORDERED: traMADol 50 MG TAB PO PRN (15:05)
--- NOTE | 2021-11-17 15:30 | P.HPIM ---
History of Present Illness H&P Date: 11/17/21 Chief Complaint: Shortness of breath This is an 81-year-old male patient of Dr. Sergio Gayle and Dr. Christensen with past medical history of coronary artery disease status post 2 vessel to vessel CABG, aortic valve and mitral valve replacement in 2014, history of TIA, gastroesophageal reflux disease, hyperlipidemia, osteoarthritis, polymyalgia rheumatica. Patient presented to the emergency center with a chief complain of shortness of breath to 3 days. Patient is complaining of mid back pain. He denies any chest pain. His stated that he was sleepy. Patient emergency room is at her oriented 3. He denies any chest pain. He stated that he was short of breath with minimal exertion. Chest x-ray in emergency room was negative. D-dimer 0 negative. ER physician was concerned about acute coronary syndrome EKG showed a paced rhythm and the first troponin was negative. Patient being admitted under observation to be evaluated by cardiology. He denies any fever or chills or cough or sputum production. Blood work in emergency room came back unremarkable chest x-ray without any acute process. Negative d-dimers. Review of Systems All 14 review of systems evaluated and all negative except for above. Past Medical History Past Medical History: Coronary Artery Disease (CAD), CVA/TIA, GERD/Reflux, Hearing Disorder / Deafness, Hyperlipidemia, Myocardial Infarction ([place]), Osteoarthritis ([place]), Prostate Disorder, Skin Disorder, Sleep Apnea/CPAP/BIPAP, Vascular Disorder Additional Past Medical History / Comment(s): CVA 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 Last Myocardial Infarction Date:: 2014 History of Any Multi-Drug Resistant Organisms: None Reported Past Surgical History: Cardiac Valve Replacement, Coronary Bypass/CABG, Heart Catheterization, Joint Replacement, Orthopedic Surgery, Pacemaker, Tonsillectomy Additional Past Surgical History / Comment(s): 2014 CABG 2 vessel with aortic valve replaced and mitral valve repaired, pacemaker, TEEs, R caratid endartectomy, decompression pseudoaneurysm R groin, R elbow ulnar nerve release, total L/R knee arthroplasties, EGD, colonoscopy. Past Anesthesia/Blood Transfusion Reactions: Motion Sickness Additional Past Anesthesia/Blood Transfusion Reaction / Comment(s): motion sickness as child Type of Cardiac Device: Permanent Pacemaker Device Placement Date:: 09/2019 Smoking Status: Former smoker - Past Family History Brother(s) Family Medical History: No Reported History Additional Family Medical History / Comment(s): Patient has 2 brothers that are living. One was Sjogren's and one has history of lung cancer. Sister(s) Additional Family Medical History / Comment(s): Patient has one half-sister at age 76 with history of smoking, COPD and TIA. Daughter(s) Additional Family Medical History / Comment(s): Patient has 2 sons with no major medical problems. Patient has 2 daughters and one has fibromyalgia. Father Family Medical History: Cancer Mother Additional Family Medical History / Comment(s): Mother grew up in [facility]. She had rickett's Medications and Allergies Home Medications Medication Instructions Recorded Confirmed Type traMADol HCL [Ultram] 50 mg PO DAILY PRN 09/26/16 11/17/21 History Tamsulosin [Flomax] 0.8 mg PO DAILY 11/01/16 11/17/21 History Ferrous Sulfate [Iron (65 MG 325 mg PO DAILY 06/14/20 11/17/21 History Elemental)] Aspirin EC [Ecotrin Low Dose] 81 mg PO DAILY 06/17/20 11/17/21 History Furosemide [Lasix] 20 mg PO DAILY PRN 06/17/20 11/17/21 History Acetaminophen Tab [Tylenol] 650 mg PO Q4-6H PRN 11/17/21 11/17/21 History Apixaban [Eliquis] 5 mg PO BID 11/17/21 11/17/21 History Cholecalciferol [Vitamin D3 (125 125 mcg PO DAILY 11/17/21 11/17/21 History Mcg = 5000 Iu)] Cyclobenzaprine [Flexeril] 5 mg PO DAILY PRN 11/17/21 11/17/21 History Allergies Allergy/AdvReac Type Severity Reaction Status Date / Time morphine Allergy arm pham Verified 11/17/21 13:18 and becomes beligerant codeine AdvReac Hallucinati Verified 11/17/21 13:18 ons hydrocodone [From [place]] AdvReac Hallucinati Verified 11/17/21 13:18 ons Physical Exam Vitals: Vital Signs Temp Pulse Pulse Resp BP BP Pulse Ox 11/17/21 15:00 97.9 F 64 16 155/56 96 11/17/21 14:26 80 18 151/87 97 11/17/21 11:50 71 18 144/95 96 11/17/21 10:42 69 18 162/85 98 11/17/21 10:30 18 11/17/21 10:21 98.4 F 66 18 141/75 97 Intake and Output 11/17/21 11/17/21 11/17/21 06:59 14:59 22:59 Other: # Voids 1 Weight 90.718 kg General: non toxic, no distress, appears at stated age Derm: warm, dry Head: atraumatic, normocephalic, symmetric Eyes: EOMI, no lid lag, anicteric sclera Mouth: no lip lesion, mucus membranes moist Cardiovascular: S1S2 reg, no murmur, positive posterior tibial pulse bilateral, Lungs: CTA bilateral, no rhonchi, no rales , no accessory muscle use Abdominal: soft, nontender to palpation, no guarding, no appreciable organomegaly Ext: no gross muscle atrophy, no edema, no contractures Neuro: CN II-XI grossly intact, no focal neuro deficits Psych: Alert, oriented, appropriate affect Results CBC & Chem 7: 11/17/21 10:56 11/17/21 10:56 Labs: Abnormal Lab Results - Last 24 Hours (Table) 11/17/21 11/17/21 Range/Units 10:56 10:56 RDW 16.0 H (11.5-15.5) % BUN 24 H (9-20) mg/dL Glucose 117 H (74-99) mg/dL Thrombosis Risk Factor Assmnt - Choose All That Apply Each Factor Represents 1 point: Obesity (BMI >25) Other Risk Factors: Yes Each Risk Factor Represents 3 Points: Age 75 years or older Other congenital or acquired thrombophilia - If yes, enter type in comment: No Thrombosis Risk Factor Assessment Total Risk Factor Score: 4 Thrombosis Risk Factor Assessment Level: Moderate Risk Assessment and Plan Assessment: Assessment and plan: #Shortness of breath -Unclear etiology. -Chest x-ray is negative for CHF or pneumonia. EKG shows paced rhythm -Negative d-dimer's. -Patient has history of coronary disease status post CABG and mitral valve replacement will check 2-D echo -Pacemaker interrogation -Cardiology consulted -Check lipid panel and A1c -Trend troponin every 3 hours x 3 -Admit to observation. #History of heart block status post permanent pacemaker on September 2019 #History of TIA and dry carotid artery stenosis -On Eliquis #Coronary disease status post CABG 2 in 2014 #Valvular heart disease status post mitral and aortic valve replacement #BPH -Resume Flomax #Chronic back pain -Resume Flexeril and tramadol as needed
[2021-11-17] MEDS: APIXABAN 5 MG TAB PO SCH (20:32)
[2021-11-17 22:00] LABS: Chol/HDL Ratio 3.16 Ratio; LDL Cholesterol,Calculated 112.7 mg/dL (0.0-131.0); VLDL Calculation 19.96 mg/dL (5.00-40.00)
[2021-11-18] MEDS: FERROUS SULFATE 325 MG TAB PO SCH (07:52)
[2021-11-18] MEDS: ASPIRIN 81 MG PO SCH (07:52)
[2021-11-18] MEDS: TAMSULOSIN 0.4 MG CAP.ER.24H PO SCH (07:52)
[2021-11-18] MEDS: CHOLECALCIFEROL 125 MCG (5000 IU) TABLET PO SCH (07:52)
[2021-11-18] MEDS: APIXABAN 5 MG TAB PO SCH ×2 (07:53→19:12)
[2021-11-18] MEDS: FUROSEMIDE 20 MG TAB PO SCH (09:40)
[2021-11-18] MEDS: LOSARTAN 25 MG TAB PO SCH (09:40)
[2021-11-18 11:41] LABS: Basophils # (A) 0.02 X 10*3/uL (0.00-0.10); Basophils % (A) 0.4 %; Eosinophils # (A) 0.27 X 10*3/uL (0.04-0.35); Eosinophils % (A) 5.8 %; HCT 38.8 % (39.6-50.0); HGB 11.9 g/dL (13.0-17.0); Immature Grans, Automated 0.2 %; Lymphocytes # (A) 0.82 X 10*3/uL (0.90-5.00); Lymphocytes % (A) 17.5 %; MCH 26.2 pg (27.0-32.0); MCHC 30.7 g/dL (32.0-37.0); MCV 85.5 fL (80.0-97.0); Monocytes # (A) 0.48 X 10*3/uL (0.20-1.00); Monocytes % (A) 10.3 %; NRBC Per 100 WBC 0 /100 WBCS (0.0-0.0); Neutrophils # (A) 3.08 X 10*3/uL (1.80-7.70); Neutrophils % (A) 65.8 %; Platelet Count 149 X 10*3/uL (140-440); RBC 4.54 X 10*6/uL (4.40-5.60); RDW 15.6 % (11.5-14.5); WBC 4.68 X 10*3/uL (4.50-10.00)
[2021-11-18 11:50] LABS: African American GFR (CKD) 80.9 (60.0-200.0); Anion Gap 7.9 mmol/L (10.00-18.00); BUN/Creat Ratio 17.1 Ratio (12.00-20.00); Blood Urea Nitrogen 17.1 mg/dL (9.0-27.0); Calcium 9.1 mg/dL (8.7-10.3); Carbon Dioxide 26.1 mmol/L (20.0-27.5); Non-African American GFR(CKD) 69.8 (60.0-200.0); Potassium 4.4 mmol/L (3.5-5.5)
--- NOTE | 2021-11-18 13:54 | P.CRDCN ---
History of Present Illness Consult date: 11/18/21 Consult reason: shortness of breath History of present illness: The patient is an 81-year-old male with past medical history of permanent pacemaker, coronary artery disease, and valvular heart disease who follows in the office with Dr. Thornton. He presented to the emergency room with new onset of shortness of breath over the course of 3 days. He states he had been taking several naps throughout the day, which is not common for the patient as well as becoming easily winded. He denies any associated chest pain or chest pressure. The patient states his blood pressure was high prior to coming to the emergency room via a home monitor. DIAGNOSTICS: EKG shows ventricular paced rhythm Chest x-ray shows no acute cardiopulmonary process. Lab data: WBC 4.6, hemoglobin 11.9, hematocrit 30.8, platelet 149, sodium 140, potassium 4.4, BUN 17, creatinine 1.0, hemoglobin A1c 5.7, AST 32, ALT 15, troponin 0.02, 0.03, 0.03, BNP 774, triglycerides 99, LDL 112, HDL 61 Vital signs: Blood pressure 154/77, pulse 61, respiratory rate 18, temp 98F, SpO2 98% on room air PAST MEDICAL HISTORY: Coronary artery disease, status post permanent pacemaker, valvular heart disease, statin myopathy REVIEW OF SYSTEMS: No fever or chills. No cough or expectoration. No diaphoresis. Patient denies headache, dizziness, blurred vision, double vision. Patient denies any stomach discomfort. No nausea, vomiting. No hematochezia. No hematemesis. Denies any black stools or blood in his stools. Denies dysuria or hematuria. No muscle weakness or numbness. PHYSICAL EXAMINATION: This is a 81 year-old male in no apparent distress at the time of my examination. HEENT: Head is atraumatic, normocephalic. Pupils are equal, round. Sclerae anicteric. Conjunctivae are clear. Mucous membranes of the mouth are moist. Neck is supple. There is no jugular venous distention. No carotid bruit is heard. CHEST EXAMINATION: Lungs are clear to auscultation. No chest wall tenderness is noted on palpation or with deep breathing. HEART EXAMINATION: Heart regular rate and rhythm. S1, S2 heard. Systolic murmur. No gallops or rub. ABDOMEN: Soft, nontender. Bowel sounds are heard. No organomegaly noted. EXTREMITIES: 2+ peripheral pulses with no evidence of peripheral edema and no calf tenderness noted. NEUROLOGIC EXAMINATION: Patient is awake, alert and oriented x3. FINAL ASSESSMENT AND PLAN: Shortness of breath, likely secondary to valvular heart disease and hypertension Uncontrolled hypertension, add losartan 25 mg History of coronary artery disease History of valvular heart disease with bioprosthetic AVR and mitral valve repair Dyslipidemia, intolerant of statin therapy PLAN: Echocardiogram results pending Add losartan 25 mg daily for hypertension Continue furosemide 20 mg daily Further recommendations will be based upon clinical course I am dictating on behalf of Dr Abimael Gustafson's history/physical and assessment/plan. 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 Last Myocardial Infarction Date:: 2014 History of Any Multi-Drug Resistant Organisms: None Reported Past Surgical History: Cardiac Valve Replacement, Coronary Bypass/CABG, Heart Catheterization, Joint Replacement, Orthopedic Surgery, Pacemaker, Tonsillectomy Additional Past Surgical History / Comment(s): 2014 CABG 2 vessel with aortic valve replaced and mitral valve repaired, pacemaker, TEEs, R caratid endartectomy, decompression pseudoaneurysm R groin, R elbow ulnar nerve release, total L/R knee arthroplasties, EGD, colonoscopy. Past Anesthesia/Blood Transfusion Reactions: Motion Sickness Additional Past Anesthesia/Blood Transfusion Reaction / Comment(s): motion sick ness as child Type of Cardiac Device: Permanent Pacemaker Device Placement Date:: 09/2019 Smoking Status: Former smoker - Past Family History Brother(s) Family Medical History: No Reported History Additional Family Medical History / Comment(s): Patient has 2 brothers that are living. One was Sjogren's and one has history of lung cancer. Sister(s) Additional Family Medical History / Comment(s): Patient has one half-sister at age 76 with history of smoking, COPD and TIA. Daughter(s) Additional Family Medical History / Comment(s): Patient has 2 sons with no major medical problems. Patient has 2 daughters and one has fibromyalgia. Father Family Medical History: Cancer Mother Additional Family Medical History / Comment(s): Mother grew up in [facility]. She had rickett's Medications and Allergies Home Medications Medication Instructions Recorded Confirmed Type traMADol HCL [Ultram] 50 mg PO DAILY PRN 09/26/16 11/17/21 History Tamsulosin [Flomax] 0.8 mg PO DAILY 11/01/16 11/17/21 History Ferrous Sulfate [Iron (65 MG 325 mg PO DAILY 06/14/20 11/17/21 History Elemental)] Aspirin EC [Ecotrin Low Dose] 81 mg PO DAILY 06/17/20 11/17/21 History Furosemide [Lasix] 20 mg PO DAILY PRN 06/17/20 11/17/21 History Acetaminophen Tab [Tylenol] 650 mg PO Q4-6H PRN 11/17/21 11/17/21 History Apixaban [Eliquis] 5 mg PO BID 11/17/21 11/17/21 History Cholecalciferol [Vitamin D3 (125 125 mcg PO DAILY 11/17/21 11/17/21 History Mcg = 5000 Iu)] Cyclobenzaprine [Flexeril] 5 mg PO DAILY PRN 11/17/21 11/17/21 History Allergies Allergy/AdvReac Type Severity Reaction Status Date / Time morphine Allergy arm pham Verified 11/17/21 13:18 and becomes beligerant codeine AdvReac Hallucinati Verified 11/17/21 13:18 ons hydrocodone [From [place]] AdvReac Hallucinati Verified 11/17/21 13:18 ons Physical Exam Vitals: Vital Signs Temp Pulse Pulse Pulse Resp BP BP 11/18/21 07:54 18 11/18/21 01:43 98.1 F 68 18 147/76 11/17/21 19:18 98.3 F 69 18 161/72 11/17/21 15:00 97.9 F 64 16 155/56 11/17/21 14:26 80 18 151/87 11/17/21 11:50 71 18 144/95 04/22/22 10:42 69 18 162/85 11/17/21 10:30 18 11/17/21 10:21 98.4 F 66 18 141/75 Pulse Ox 11/18/21 07:54 11/18/21 01:43 96 11/17/21 19:18 95 11/17/21 15:00 96 11/17/21 14:26 97 11/17/21 11:50 96 11/17/21 10:42 98 11/17/21 10:30 11/17/21 10:21 97 Intake and Output 11/17/21 11/18/21 11/18/21 22:59 06:59 14:59 Intake Total 180 Balance 180 Intake: Oral 180 Other: Voiding Method Toilet # Voids 1 1 Results 11/18/21 06:46 11/18/21 06:46 Cardiac Enzymes 11/17/21 11/17/21 11/17/21 Range/Units 10:56 10:56 15:13 AST 32 (17-59) U/L Troponin I 0.026 0.031 (0.000-0.034) ng/mL 11/17/21 Range/Units 17:52 AST (17-59) U/L Troponin I 0.030 (0.000-0.034) ng/mL Coagulation 11/17/21 Range/Units 10:56 PT 10.4 (9.0-12.0) sec APTT 27.5 (22.0-30.0) sec Lipids 11/17/21 Range/Units 15:13 Triglycerides 99.80 (0.00-149.00) mg/dL Cholesterol 194.00 (0.00-200.00) mg/dL HDL Cholesterol 61.30 H (40.00-60.00) mg/dL Cholesterol/HDL Ratio 3.16 Ratio CBC 11/17/21 Range/Units 10:56 WBC 4.5 (3.8-10.6) k/uL RBC 4.87 (4.30-5.90) m/uL Hgb 13.4 (13.0-17.5) gm/dL Hct 41.7 (39.0-53.0) % Plt Count 157 (150-450) k/uL Comprehensive Metabolic Panel 11/17/21 Range/Units 10:56 Sodium 140 (137-145) mmol/L Potassium 4.6 (3.5-5.1) mmol/L Chloride 106 (98-107) mmol/L Carbon Dioxide 28 (22-30) mmol/L BUN 24 H (9-20) mg/dL Creatinine 0.98 (0.66-1.25) mg/dL Glucose 117 H (74-99) mg/dL Calcium 9.2 (8.4-10.2) mg/dL AST 32 (17-59) U/L ALT 15 (4-49) U/L Alkaline Phosphatase 64 (38-126) U/L Total Protein 7.2 (6.3-8.2) g/dL Albumin 4.3 (3.5-5.0) g/dL Current Medications Generic Name Dose Route Start Last Admin Trade Name Freq PRN Reason Stop Dose Admin Acetaminophen 650 mg 11/17/21 12:16 Acetaminophen Tab 325 Mg Tab PO Q6HR PRN Mild Pain or Fever > 100.5 Apixaban 5 mg 11/17/21 21:00 11/18/21 07:53 Apixaban 5 Mg Tab PO 5 mg BID ROSALINDA Administration Protocol Aspirin 81 mg 11/18/21 09:00 11/18/21 07:52 Aspirin 81 Mg PO 81 mg DAILY [facility] Administration Cholecalciferol 125 mcg 11/18/21 09:00 11/18/21 07:52 Cholecalciferol 125 Mcg (5000 Iu) Tablet PO 125 mcg DAILY ROSALINDA Administration Cyclobenzaprine HCl 5 mg 11/17/21 15:05 11/17/21 20:52 Cyclobenzaprine 5 Mg Tab PO 5 mg DAILY PRN Administration Muscle Spasm Ferrous Sulfate 325 mg 11/18/21 09:00 11/18/21 07:52 Ferrous Sulfate 325 Mg Tab PO 325 mg DAILY ROSALINDA Administration Furosemide 20 mg 11/17/21 15:05 Furosemide 20 Mg Tab PO DAILY PRN Swelling Furosemide 20 mg 11/18/21 09:00 Furosemide 20 Mg Tab PO DAILY [facility] Losartan Potassium 25 mg 11/18/21 09:00 Losartan 25 Mg Tab PO DAILY [facility] Naloxone HCl 0.2 mg 11/17/21 12:16 Naloxone 0.4 Mg/Ml 1 Ml Vial IV Q2M PRN Opioid Reversal Nitroglycerin 0.4 mg 11/17/21 12:17 Nitroglycerin Sl Tabs 0.4 Mg Tab SUBLINGUAL Q5M PRN Chest Pain Tamsulosin HCl 0.8 mg 11/18/21 09:00 11/18/21 07:52 Tamsulosin 0.4 Mg Cap.Er.24h PO 0.8 mg DAILY ROSALINDA Administration Tramadol HCl 50 mg 11/17/21 15:05 Tramadol 50 Mg Tab PO DAILY PRN Pain Intake and Output 11/17/21 11/18/21 11/18/21 22:59 06:59 14:59 Intake Total 180 Balance 180 Intake: Oral 180 Other: Voiding Method Toilet # Voids 1 1 11/17/21 10:56 11/17/21 10:56
--- NOTE | 2021-11-18 13:58 | P.PN ---
Subjective Progress Note Date: 11/18/21 Chief Complaint: Shortness of breath This is an 81-year-old male patient of Dr. Sergio Gayle and Dr. Christensen with past medical history of coronary artery disease status post 2 vessel to vessel CABG, aortic valve and mitral valve replacement in 2014, history of TIA, gastroesophageal reflux disease, hyperlipidemia, osteoarthritis, polymyalgia rheumatica. Patient presented to the emergency center with a chief complain of shortness of breath to 3 days. Patient is complaining of mid back pain. He denies any chest pain. His stated that he was sleepy. Patient emergency room is at her oriented 3. He denies any chest pain. He stated that he was short of breath with minimal exertion. Chest x-ray in emergency room was negative. D-dimer 0 negative. ER physician was concerned about acute coronary syndrome EKG showed a paced rhythm and the first troponin was negative. Patient being admitted under observation to be evaluated by cardiology. He denies any fever or chills or cough or sputum production. Blood work in emergency room came back unremarkable chest x-ray without any acute process. Negative d-dimers. Interval history: Patient was seen and examined at bedside. He denies any chest pain or shortness of breath. No acute changes overnight. Pending 2-D echo Physical examination: General: non toxic, no distress, appears at stated age Derm: warm, dry Head: atraumatic, normocephalic, symmetric Eyes: EOMI, no lid lag, anicteric sclera Mouth: no lip lesion, mucus membranes moist Cardiovascular: S1S2 reg, no murmur, positive posterior tibial pulse bilateral, Lungs: CTA bilateral, no rhonchi, no rales , no accessory muscle use Abdominal: soft, nontender to palpation, no guarding, no appreciable organomegaly Ext: no gross muscle atrophy, no edema, no contractures Neuro: CN II-XI grossly intact, no focal neuro deficits Psych: Alert, oriented, appropriate affect Assessment and plan: #Shortness of breath -Unclear etiology. Acute coronary syndrome has been ruled out -Chest x-ray is negative for CHF or pneumonia. EKG shows paced rhythm -Negative d-dimer's. -Patient has history of coronary disease status post CABG and mitral valve replacement will check 2-D echo -Pacemaker interrogation -Cardiology consulted. #History of heart block status post permanent pacemaker on September 2019 #History of TIA and dry carotid artery stenosis -On Eliquis #Coronary disease status post CABG 2 in 2014 #Valvular heart disease status post mitral and aortic valve replacement #BPH -Resume Flomax #Chronic lower extremity cramps -Resume Flexeril and tramadol as needed Objective - Vital Signs Vital signs: Vital Signs Temp 98.0 F 11/18/21 07:00 Pulse 61 11/18/21 07:00 Resp 18 11/18/21 07:54 BP 154/77 11/18/21 07:00 Pulse Ox 98 11/18/21 07:00 Intake & Output 11/17/21 11/18/21 11/18/21 18:59 06:59 18:59 Intake Total 180 236 Balance 180 236 Weight 90.718 kg Intake: Oral 180 236 Other: Voiding Method Toilet # Voids 1 1 - Labs CBC & Chem 7: 11/18/21 06:46 11/18/21 06:46 Labs: Abnormal Lab Results - Last 24 Hours (Table) 11/17/21 11/18/21 11/18/21 Range/Units 15:13 06:46 06:46 Hgb 11.9 L (13.0-17.0) g/dL Hct 38.8 L (39.6-50.0) % MCH 26.2 L (27.0-32.0) pg MCHC 30.7 L (32.0-37.0) g/dL RDW 15.6 H (11.5-14.5) % Lymphocytes # 0.82 L (0.90-5.00) X 10*3/uL Anion Gap 7.90 L (10.00-18.00) mmol/L HDL Cholesterol 61.30 H (40.00-60.00) mg/dL
[2021-11-18 22:29] VITALS: RESP 18
[2021-11-19] MEDS: CHOLECALCIFEROL 125 MCG (5000 IU) TABLET PO SCH (08:26)
[2021-11-19] MEDS: LOSARTAN 25 MG TAB PO SCH (08:26)
[2021-11-19] MEDS: TAMSULOSIN 0.4 MG CAP.ER.24H PO SCH (08:26)
[2021-11-19] MEDS: FUROSEMIDE 20 MG TAB PO SCH (08:26)
[2021-11-19] MEDS: APIXABAN 5 MG TAB PO SCH (08:26)
[2021-11-19] MEDS: ASPIRIN 81 MG PO SCH (08:26)
[2021-11-19 08:27] VITALS: BP 132/76; PULSE 68; TEMP 97.4
[2021-11-19] MEDS: FERROUS SULFATE 325 MG TAB PO SCH (08:27)
--- NOTE | 2021-11-19 11:30 | CA ---
Transthoracic Echo Report Name: Peter Elena Age: 81 Gender: M : 1940 Exam Date: 11/17/2021 15:46 Exam Location: [place] [facility] Ht (in): 68 Wt (lb): 200 Ordering Physician: Sam Ingram MD Attending/Referring Phys: [id number] Supervisor [employer] Nell Solis RDCS Procedure CPT: Indications: SHORTNESS OF BREATH Cardiac Hx: Hx of Bypass, Pacemaker, MV Repair, Prostetic AV. Technical Quality: Good Contrast 1: Total Dose (mL): Contrast 2: Total Dose (mL): MEASUREMENTS (Male / Female) Normal Values 2D ECHO LV Diastolic Diameter PLAX 4.2 cm 4.2 - 5.9 / 3.9 - 5.3 cm LV Systolic Diameter PLAX 2.9 cm IVS Diastolic Thickness 1.9 cm 0.6 - 1.0 / 0.6 - 0.9 cm LVPW Diastolic Thickness 2.0 cm 0.6 - 1.0 / 0.6 - 0.9 cm LV Relative Wall Thickness 0.9 RV Internal Dim ED PLAX 3.2 cm LA Volume 112.4 cm 18 - 58 / 22 - 52 cm M-MODE Aortic Root Diameter MM 3.6 cm LA Systolic Diameter MM 5.6 cm LA Ao Ratio MM 1.6 MV E Point Septal Separation 1.4 cm AV Cusp Separation MM 1.7 cm DOPPLER AV Peak Velocity 242.3 cm/s AV Peak Gradient 23.5 mmHg AV Mean Velocity 171.4 cm/s AV Mean Gradient 12.9 mmHg AV Velocity Time Integral 39.5 cm LVOT Peak Velocity 76.8 cm/s LVOT Peak Gradient 2.4 mmHg MV Peak Velocity 192.1 cm/s MV Peak Gradient 14.8 mmHg MV Mean Velocity 98.6 cm/s MV Mean Gradient 4.9 mmHg MV Velocity Time Integral 53.2 cm MV Area PHT 2.0 cm MR Peak Velocity 368.4 cm/s MR Peak Gradient 54.3 mmHg Mitral E Point Velocity 201.9 cm/s Mitral A Point Velocity 83.1 cm/s Mitral E to A Ratio 2.4 MV Deceleration Time 374.5 ms TR Peak Velocity 333.5 cm/s TR Peak Gradient 44.5 mmHg Right Ventricular Systolic Press 45.1 mmHg PV Peak Velocity 168.2 cm/s PV Peak Gradient 11.3 mmHg PI Peak Gradient 22.1 mmHg FINDINGS Left Ventricle Severely increased septal wall thickness. Left ventricular ejection fraction is estimated at 45-50 %. Right Ventricle Normal right ventricular size with reduced systolic function. Mild pulmonary hypertension. Right Atrium Normal right atrial size. Left Atrium Severely increased left atrial volume. Moderately increased left atrial area. Mitral Valve Moderate mitral regurgitation. [id number] mitral stenosis. MV repair. Aortic Valve Normally functioning prosthetic aortic valve. Tricuspid Valve Structurally normal tricuspid valve. Mild tricuspid regurgitation. Pulmonic Valve Structurally normal pulmonic valve. Mild pulmonic regurgitation. Pericardium No pericardial effusion. Aorta Normal size aortic root and proximal ascending aorta. CONCLUSIONS Left ventricular hypertrophy with low-normal LV systolic function ejection fraction of about 50% Normal RV size with right ventricular hypertrophy and mildly reduced RV systolic function Bioprosthetic aortic valve in stable position with very mild aortic regurgitation Moderate mitral regurgitation status post repair Right ventricular systolic pressure is not elevated Previewed by: Dr. Abimael Gustafson MD (Electronically Signed) Final Date: 19 November 2021 11:29
--- NOTE | 2021-11-19 13:10 | P.PN ---
Subjective Progress Note Date: 11/19/21 The patient is an 81-year-old male who follows in the office with Dr. Thornton. He is currently admitted for shortness of breath. He states this has improved over the last 24 hours and he was able to rest comfortably overnight. He denies any chest pain or chest pressure. No heart racing. No dizziness or lightheadedness. Echocardiogram revealed low normal EF at 50% with RV hypertrophy, bioprosthetic aortic valve with minimal regurgitation, and moderate mitral regurgitation status post prior repair GENERAL: Well-appearing, well-nourished and in no acute distress. NECK: Supple without JVD or thyromegaly. LUNGS: Breath sounds clear to auscultation bilaterally. Respiration equal and unlabored. No wheezes, rales or rhonchi. HEART: Regular rate and rhythm. Systolic murmur. No rubs or gallops. S1 and S2 heard. EXTREMITIES: Normal range of motion, no edema. No clubbing or cyanosis. Peripheral pulses intact and strong. VITALS: Blood pressure 132/76, pulse 68, respiratory rate 16, temp 97.4F, SpO2 96% on room TELEMETRY: Sinus rhythm IMPRESSION: Shortness of breath, likely secondary to valvular heart disease Uncontrolled hypertension, improved with addition of losartan History of coronary artery disease History of valvular heart disease with bioprosthetic aVR and mitral valve repair Dyslipidemia, intolerant to statin therapy PLAN: Continue current medication regimen including losartan and furosemide Patient may be discharged for outpatient follow-up Follow-up with Dr. Christensen in 1-2 weeks I am dictating on behalf of Dr Abimael Gustafson's history/physical and assessment/plan. Objective - Vital Signs Vital signs: Vital Signs Temp 97.4 F L 11/19/21 07:00 Pulse 68 11/19/21 07:00 Resp 18 11/19/21 07:36 BP 132/76 11/19/21 07:00 Pulse Ox 96 11/19/21 07:00 Intake & Output 11/18/21 11/19/21 11/19/21 18:59 06:59 18:59 Intake Total 236 Balance 236 Intake: Oral 236 Other: Voiding Method Toilet Toilet Toilet # Voids 2 1 - Labs CBC & Chem 7: 11/18/21 06:46 11/18/21 06:46
--- NOTE | 2021-11-19 13:45 | P.DS ---
Providers Date of admission: 11/17/21 12:15 Expected date of discharge: 11/19/21 Attending physician: Karin Kessler MD Consults: 11/17/21 12:17 Consult Physician Routine Consulting Provider: Durga Christensen Consult Reason/Comments: CP Do you want consulting provider notified?: Yes Primary care physician: Sergio Gayle [facility] Hospital Course: Chief Complaint: Shortness of breath This is an 81-year-old male patient of Dr. Sergio Gayle and Dr. Christensen with past medical history of coronary artery disease status post 2 vessel to vessel CABG, aortic valve and mitral valve replacement in 2015, history of TIA, gastroesophageal reflux disease, hyperlipidemia, osteoarthritis, polymyalgia rheumatica. Patient presented to the emergency center with a chief complain of shortness of breath to 3 days. Patient is complaining of mid back pain. He denies any chest pain. His stated that he was sleepy. Patient emergency room is at her [facility] 3. He denies any chest pain. He stated that he was short of breath with minimal exertion. Chest x-ray in emergency room was negative. D-dimer 0 negative. ER physician was concerned about acute coronary syndrome EKG showed a paced rhythm and the first troponin was negative. Patient being admitted under observation to be evaluated by cardiology. He denies any fever or chills or cough or sputum production. Blood work in emergency room came back unremarkable chest x-ray without any acute process. Negative d-dimers. Physical examination: General: non toxic, no distress, appears at stated age Derm: warm, dry Head: atraumatic, normocephalic, symmetric Eyes: EOMI, no lid lag, anicteric sclera Mouth: no lip lesion, mucus membranes moist Cardiovascular: S1S2 reg, no murmur, positive posterior tibial pulse bilateral, Lungs: CTA bilateral, no rhonchi, no rales , no accessory muscle use Abdominal: soft, nontender to palpation, no guarding, no appreciable org anomegaly Ext: no gross muscle atrophy, no edema, no contractures Neuro: CN II-XI grossly intact, no focal neuro deficits Psych: Alert, oriented, appropriate affect Hospital course in due to the problems #Shortness of breath secondary to valvular heart disease -Unclear etiology. Acute coronary syndrome has been ruled out -Chest x-ray is negative for CHF or pneumonia. EKG shows paced rhythm -Negative d-dimer's. -Patient has history of coronary disease status post CABG and mitral valve replacement will check 2-D echo -Pacemaker interrogation -2-D echo showed hyperstatic aortic valve in stable position. With very mild aortic regurg. EF 50%. Moderate mitral regurg status post repair -Cardiology cleared the patient for discharge #History of heart block status post permanent pacemaker on September 2019 #History of TIA and dry carotid artery stenosis -On Eliquis #Uncontrolled hypertension -Improved with losartan #Coronary disease status post CABG 2 in 2014 #Valvular heart disease status post mitral repair and aortic valve replacement #BPH -Resume Flomax #Chronic lower extremity cramps -Resume Flexeril and tramadol as needed patient cleared for discharge by cardiology Patient Condition at Discharge: Stable Plan - Discharge Summary Discharge Rx Participant: No New Discharge Prescriptions: New Losartan [Cozaar] 25 mg PO DAILY 30 Days #30 tab Continue traMADol HCL [Ultram] 50 mg PO DAILY PRN PRN Reason: Pain Tamsulosin [Flomax] 0.8 mg PO DAILY Ferrous Sulfate [Iron (65 MG Elemental)] 325 mg PO DAILY Aspirin EC [Ecotrin Low Dose] 81 mg PO DAILY Furosemide [Lasix] 20 mg PO DAILY PRN PRN Reason: Swelling Acetaminophen Tab [Tylenol] 650 mg PO Q4-6H PRN PRN Reason: Shortness Of Breath Apixaban [Eliquis] 5 mg PO BID Cyclobenzaprine [Flexeril] 5 mg PO DAILY PRN PRN Reason: Muscle Spasm Cholecalciferol [Vitamin D3 (125 Mcg = 5000 Iu)] 125 mcg PO DAILY Discharge Medication List traMADol HCL [Ultram] 50 mg PO DAILY PRN 09/26/16 [History] Tamsulosin [Flomax] 0.8 mg PO DAILY 11/01/16 [History] Ferrous Sulfate [Iron (65 MG Elemental)] 325 mg PO DAILY 06/14/20 [History] Aspirin EC [Ecotrin Low Dose] 81 mg PO DAILY 06/17/20 [History] Furosemide [Lasix] 20 mg PO DAILY PRN 06/17/20 [History] Acetaminophen Tab [Tylenol] 650 mg PO Q4-6H PRN 11/17/21 [History] Apixaban [Eliquis] 5 mg PO BID 11/17/21 [History] Cholecalciferol [Vitamin D3 (125 Mcg = 5000 Iu)] 125 mcg PO DAILY 11/17/21 [History] Cyclobenzaprine [Flexeril] 5 mg PO DAILY PRN 11/17/21 [History] Losartan [Cozaar] 25 mg PO DAILY 30 Days #30 tab 11/19/21 [Rx] Follow up Appointment(s)/Referral(s): Durga Christensen MD [STAFF PHYSICIAN] - 2 Weeks (follow up one to two weeks ) Sergio Gayle MD [Primary Care Provider] - 1-2 days Discharge Disposition: HOME SELF-CARE
== END 2021-11-19 13:08 | disposition home or self-care (01) ==
LOC: EC 10:16 → 6NMEDSUR 12:15
PROVIDERS: ADMIT Internal Medicine; ATTEND Internal Medicine
DX: I38 Endocarditis, valve unspecified (principal); I65.21 Occlusion and stenosis of right carotid artery; I11.9 Hypertensive heart disease without heart failure; R25.2 Cramp and spasm; N40.0 Benign prostatic hyperplasia without lower urinary tract symptoms; I25.10 Atherosclerotic heart disease of native coronary artery without angina pectoris; M35.3 Polymyalgia rheumatica; E78.5 Hyperlipidemia, unspecified; K21.9 Gastro-esophageal reflux disease without esophagitis; M19.90 Unspecified osteoarthritis, unspecified site; G89.29 Other chronic pain; M54.6 Pain in thoracic spine; I45.9 Conduction disorder, unspecified; I27.20 Pulmonary hypertension, unspecified; R01.1 Cardiac murmur, unspecified; H91.90 Unspecified hearing loss, unspecified ear; I25.2 Old myocardial infarction; G43.909 Migraine, unspecified, not intractable, without status migrainosus; K44.9 Diaphragmatic hernia without obstruction or gangrene; D64.9 Anemia, unspecified; G47.33 Obstructive sleep apnea (adult) (pediatric); R60.0 Localized edema; J30.2 Other seasonal allergic rhinitis; E66.9 Obesity, unspecified; Z68.30 Body mass index [BMI] 30.0-30.9, adult; R53.1 Weakness; R07.89 Other chest pain; Z87.891 Personal history of nicotine dependence; Z86.73 Personal history of transient ischemic attack (TIA), and cerebral infarction without residual deficits; Z87.11 Personal history of peptic ulcer disease; Z87.442 Personal history of urinary calculi; Z95.1 Presence of aortocoronary bypass graft; Z95.0 Presence of cardiac pacemaker; Z95.3 Presence of xenogenic heart valve; Z79.899 Other long term (current) drug therapy; Z79.82 Long term (current) use of aspirin; Z79.01 Long term (current) use of anticoagulants; Z88.5 Allergy status to narcotic agent; Z84.89 Family history of other specified conditions; Z80.1 Family history of malignant neoplasm of trachea, bronchus and lung; Z82.3 Family history of stroke; Z82.5 Family history of asthma and other chronic lower respiratory diseases
CPT/HCPCS: 99285; 36415; 93005; 93306; 85379; 83880; 80061; 80053; 80048; 84443; 82607; 83605; 84484; 85025 ×2; 85610; 85730; 83036; 71046; G0378 ×3

== ENCOUNTER 2022-03-15 12:21 | Emergency (ER) | payer MEDICARE ==
[2022-03-15] MEDS ORDERED: ALBUTEROL HFA INHALER INHALATION STA (13:20)
[2022-03-15] MEDS ORDERED: SODIUM CHLORIDE 0.9% 500 ML 500 ML IV STA (13:21)
--- NOTE | 2022-03-15 13:27 | ED ---
General Adult HPI - General Chief complaint: Upper Respiratory Infection Stated complaint: Fatigue Time Seen by Provider: 03/15/22 13:07 Source: patient, family, RN notes reviewed Mode of arrival: ambulatory Limitations: no limitations - History of Present Illness Initial comments: Patient is a pleasant 81-year-old male presenting to the emergency department with concerns with COVID-19 infection. Onset of symptoms was 10 days ago. Patient has a positive today. Patient has had cough. Occasional mild dyspnea. Patient did have fever one day. No nausea vomiting. patient diarrhea. No loss of taste or smell. Normal appetite. is concerned that home oxygen level drops to upper 80s at nighttime. - Related Data Home Medications Medication Instructions Recorded Confirmed traMADol HCL [Ultram] 50 mg PO DAILY PRN 09/26/16 03/15/22 Tamsulosin [Flomax] 0.8 mg PO DAILY 11/01/16 03/15/22 Ferrous Sulfate [Iron (65 MG 325 mg PO DAILY 06/14/20 03/15/22 Elemental)] Aspirin EC [Ecotrin Low Dose] 81 mg PO DAILY 06/17/20 03/15/22 Furosemide [Lasix] 40 mg PO DAILY PRN 06/17/20 03/15/22 Acetaminophen Tab [Tylenol] 650 mg PO Q4-6H PRN 11/17/21 03/15/22 Apixaban [Eliquis] 5 mg PO BID 11/17/21 03/15/22 Cholecalciferol [Vitamin D3 (125 125 mcg PO DAILY 11/17/21 03/15/22 Mcg = 5000 Iu)] Previous Rx's Medication Instructions Recorded Losartan [Cozaar] 25 mg PO DAILY 30 Days #30 tab 11/19/21 Allergies Allergy/AdvReac Type Severity Reaction Status Date / Time morphine Allergy arm pham Verified 03/15/22 14:35 and becomes beligerant codeine AdvReac Hallucinati Verified 03/15/22 14:35 ons hydrocodone [From [place]] AdvReac Hallucinati Verified 03/15/22 14:35 ons Review of Systems ROS Statement: Those systems with pertinent positive or pertinent negative responses have been documented in the HPI. ROS Other: All systems not noted in ROS Statement are negative. Constitutional: Reports: as per HPI Eyes: Denies: eye pain ENT: Denies: ear pain Respiratory: Reports: as per HPI, cough Cardiovascular: Denies: chest pain Endocrine: Reports: fatigue Gastrointestinal: Denies: abdominal pain Genitourinary: Denies: urgency Musculoskeletal: Denies: back pain Skin: Denies: rash Neurological: Denies: weakness Past Medical History Past Medical History: Coronary Artery Disease (CAD), CVA/TIA, GERD/Reflux, Hearing Disorder / Deafness, Hyperlipidemia, Myocardial Infarction ([place]), Osteoarthritis (OA), Prostate Disorder, Skin Disorder, Sleep Apnea/CPAP/BIPAP, Vascular Disorder Additional Past Medical History / Comment(s): CVA 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 Last Myocardial Infarction Date:: 2014 History of Any Multi-Drug Resistant Organisms: None Reported Past Surgical History: Cardiac Valve Replacement, Coronary Bypass/CABG, Heart Catheterization, Joint Replacement, Orthopedic Surgery, Pacemaker, Tonsillectomy Additional Past Surgical History / Comment(s): 2014 CABG 2 vessel with aortic valve replaced and mitral valve repaired, pacemaker, TEEs, R caratid endartectomy, decompression pseudoaneurysm R groin, R elbow ulnar nerve release, total L/R knee arthroplasties, EGD, colonoscopy. Past Anesthesia/Blood Transfusion Reactions: Motion Sickness Additional Past Anesthesia/Blood Transfusion Reaction / Comment(s): motion sickness as child Type of Cardiac Device: Permanent Pacemaker Device Placement Date:: 09/2019 Past Psychological History: No Psychological Hx Reported Smoking Status: Former smoker Past Alcohol Use History: Occasional Past Drug Use History: None Reported - Past Family History Brother(s) Family Medical History: No Reported History Additional Family Medical History / Comment(s): Patient has 2 brothers that are living. One was Sjogren's and one has history of lung cancer. Sister(s) Additional Family Medical History / Comment(s): Patient has one half-sister at age 76 with history of smoking, COPD and TIA. Daughter(s) Additional Family Medical History / Comment(s): Patient has 2 sons with no major medical problems. Patient has 2 daughters and one has fibromyalgia. Father Family Medical History: Cancer Mother Additional Family Medical History / Comment(s): Mother grew up in [facility]. She had rickett's General Exam Limitations: no limitations General appearance: alert, in no apparent distress Head exam: Present: normocephalic Eye exam: Present: normal appearance ENT exam: Present: normal oropharynx Neck exam: Present: normal inspection Respiratory exam: Present: normal lung sounds bilaterally. Absent: respiratory distress, wheezes Cardiovascular Exam: Present: regular rate, normal rhythm GI/Abdominal exam: Present: soft. Absent: tenderness Extremities exam: Present: normal inspection. Absent: pedal edema, calf tenderness Neurological exam: Present: alert Psychiatric exam: Present: normal affect, normal mood Skin exam: Present: normal color. Absent: cyanosis Course Vital Signs 03/15/22 12:48 Temperature 97.6 F Pulse Rate 64 Respiratory 16 Rate Blood Pressure 105/62 O2 Sat by Pulse 96 Oximetry Medical Decision Making - Medical Decision Making Patient reevaluated. Patient and family updated on results and need for follow- up. As well as need to return for hypoxia or worsening symptoms. - Lab Data Result diagrams: 03/15/22 13:25 03/15/22 13:25 Lab Results 03/15/22 03/15/22 03/15/22 Range/Units 13:25 13:25 13:25 WBC 3.2 L (3.8-10.6) k/uL RBC 4.93 (4.30-5.90) m/uL Hgb 13.5 (13.0-17.5) gm/dL Hct 42.2 (39.0-53.0) % MCV 85.7 (80.0-100.0) fL MCH 27.4 (25.0-35.0) pg MCHC 32.0 (31.0-37.0) g/dL RDW 15.1 (11.5-15.5) % Plt Count 171 (150-450) k/uL MPV 8.1 Neutrophils % 60 % Lymphocytes % 25 % Monocytes % 7 % Eosinophils % 5 % Basophils % 1 % Neutrophils # 1.9 (1.3-7.7) k/uL Lymphocytes # 0.8 L (1.0-4.8) k/uL Monocytes # 0.2 (0-1.0) k/uL Eosinophils # 0.2 (0-0.7) k/uL Basophils # 0.0 (0-0.2) k/uL Hypochromasia Slight Sodium 139 (137-145) mmol/L Potassium 4.3 (3.5-5.1) mmol/L Chloride 101 (98-107) mmol/L Carbon Dioxide 27 (22-30) mmol/L Anion Gap 11 mmol/L BUN 29 H (9-20) mg/dL Creatinine 1.03 (0.66-1.25) mg/dL Est GFR (CKD-EPI)AfAm 78 (>60 ml/min/1.73 sqM) Est GFR (CKD-EPI)NonAf 68 (>60 ml/min/1.73 sqM) Glucose 135 H (74-99) mg/dL Plasma Lactic Acid Vitaly 1.5 (0.7-2.0) mmol/L Calcium 9.4 (8.4-10.2) mg/dL Magnesium 2.0 (1.6-2.3) mg/dL Total Bilirubin 0.6 (0.2-1.3) mg/dL AST 32 (17-59) U/L ALT 16 (4-49) U/L Alkaline Phosphatase 73 (38-126) U/L Lactate Dehydrogenase 1138 H (313-618) U/L C-Reactive Protein 0.7 (<1.0) mg/dL Total Protein 6.8 (6.3-8.2) g/dL Albumin 4.3 (3.5-5.0) g/dL - Radiology Data Radiology results: image reviewed (Chest x-ray shows no acute process) Disposition Clinical Impression: COVID-19 Disposition: HOME SELF-CARE Condition: Stable Instructions (If sedation given, give patient instructions): COVID-19 ( Coronavirus Disease 2019) (ED) Additional Instructions: Please follow-up with your primary care physician in the next day or 2 for recheck. Return for difficulty breathing, low oxygen levels, not tolerating fluids, worsening symptoms or any other concerns. Sajh-qor-soirmed vitamin C, vitamin D, and zinc. Is patient prescribed a controlled substance at d/c from ED?: No Referrals: Sergio Gayle MD [Primary Care Provider] - 1-2 days Time of Disposition: 15:26
[2022-03-15 13:55] LABS: Basophils % (A) 1 %; Eosinophils # (A) 0.2 k/uL (0-0.7); Eosinophils % (A) 5 %; HCT 42.2 % (39.0-53.0); HGB 13.5 gm/dL (13.0-17.5); Hypochromasia Slight; Lymphocytes # (A) 0.8 k/uL (1.0-4.8); Lymphocytes % (A) 25 %; MCH 27.4 pg (25.0-35.0); MCV 85.7 fL (80.0-100.0); Mean Platelet Volume 8.1; Monocytes # (A) 0.2 k/uL (0-1.0); Monocytes % (A) 7 %; Neutrophils # (A) 1.9 k/uL (1.3-7.7); Neutrophils % (A) 60 %; Platelet Count 171 k/uL (150-450); RBC 4.93 m/uL (4.30-5.90); RDW 15.1 % (11.5-15.5); WBC 3.2 k/uL (3.8-10.6)
--- NOTE | 2022-03-15 13:55 | XR ---
EXAMINATION TYPE: XR chest 1V portable DATE OF EXAM: 03/15/2022 HISTORY: Shortness of breath. COMPARISON: 11/17/2021 TECHNIQUE: Single view of the chest is submitted. FINDINGS: Demonstrated are scattered senescent parenchymal change. There is no evidence for focal infiltrate. The heart is stable. Hilar and mediastinal structures are within normal limits. Degenerative changes are seen of the dorsal spine. IMPRESSION: 1. Chronic changes without evidence for acute pulmonary disease.
[2022-03-15 14:02] LABS: Albumin 4.3 g/dL (3.5-5.0); C Reactive Protein 0.7 mg/dL (<1.0); Calcium 9.4 mg/dL (8.4-10.2); Potassium 4.3 mmol/L (3.5-5.1); Total Bilirubin 0.6 mg/dL (0.2-1.3); Total Protein 6.8 g/dL (6.3-8.2)
[2022-03-15 15:43] VITALS: BP 143/79; PULSE 63; RESP 20; TEMP 97.7
== END 2022-03-15 15:42 | disposition home or self-care (01) ==
LOC: EC 12:21
DX: U07.1 COVID-19 (principal); I25.2 Old myocardial infarction; I25.10 Atherosclerotic heart disease of native coronary artery without angina pectoris; M19.90 Unspecified osteoarthritis, unspecified site; Z87.891 Personal history of nicotine dependence; Z86.73 Personal history of transient ischemic attack (TIA), and cerebral infarction without residual deficits; Z88.5 Allergy status to narcotic agent; Z79.899 Other long term (current) drug therapy; Z79.82 Long term (current) use of aspirin; Z79.01 Long term (current) use of anticoagulants
CPT/HCPCS: 36415; 71045; 80053; 82728; 83605; 83615; 83735; 84145; 85025; 86140; 94640; 99284

== ENCOUNTER 2022-07-03 07:31 | Day surgery (SDC) | payer MEDICARE ==
[~2022-07-03 07:31] MED LIST changes: +ASPIRIN 325 MG TAB PO ONE; -ASPIRIN 325 MG TAB PO STA; -SODIUM CHLORIDE 0.9% 1,000 ML in EMPTY BAG 1 BAG IV ONE; +SODIUM CHLORIDE 0.9% 1,000 ML in EMPTY BAG 1 BAG IV SCH
[2022-07-03 07:52] VITALS: RESP 18; TEMP 97.6
[2022-07-03 07:57] LABS: Basophils % (A) 1 %; Eosinophils # (A) 0.2 k/uL (0-0.7); Eosinophils % (A) 6 %; HCT 40.5 % (39.0-53.0); HGB 12.9 gm/dL (13.0-17.5); Hypochromasia Slight; Lymphocytes % (A) 27 %; MCH 27.2 pg (25.0-35.0); MCHC 31.9 g/dL (31.0-37.0); MCV 85.4 fL (80.0-100.0); Mean Platelet Volume 8.7; Monocytes # (A) 0.3 k/uL (0-1.0); Monocytes % (A) 7 %; Neutrophils # (A) 2.2 k/uL (1.3-7.7); Neutrophils % (A) 58 %; Platelet Count 152 k/uL (150-450); RBC 4.74 m/uL (4.30-5.90); RDW 15.4 % (11.5-15.5); WBC 3.8 k/uL (3.8-10.6)
[2022-07-03 08:14] LABS: Calcium 8.9 mg/dL (8.4-10.2); Potassium 4.2 mmol/L (3.5-5.1)
[2022-07-03] MEDS ORDERED: HEPARIN SODIUM 1,000 UN/ML (10ML VL) ONE (09:34)
[2022-07-03] MEDS ORDERED: MIDAZOLAM 2 MG/2 ML VIAL IV ONE (09:44)
[2022-07-03] MEDS: LIDOCAINE 1% INJ 10MG/ML (30 ML VIAL-PF) SQ ONE ×2 (09:45→10:10)
[2022-07-03] MEDS ORDERED: fentaNYL (PF) 50 MCG/ML 2 ML AMP ONE (10:07)
[2022-07-03] MEDS ORDERED: fentaNYL (PF) 50 MCG/ML 2 ML AMP IV ONE (10:10)
[2022-07-03] MEDS ORDERED: IOPAMIDOL-370 100ML BTL INJ ONE (10:10)
[2022-07-03] MEDS ORDERED: RX INFO: IV CONTRAST WAS GIVEN 1 EACH MISC MISCELLANE PRN (10:16)
--- NOTE | 2022-07-03 10:20 | P.PCN ---
Date of Procedure: 07/03/22 Operative Findings: CARDIAC CATHETERIZATION PERFORMING PHYSICIAN: Durga Christensen MD, RPVI PROCEDURE PERFORMED: 1. Selective right and left coronary angiogram 2. SVG to LAD angiogram 3. SVG to RCA angiogram 4. Selective right common femoral artery angiogram. Ultrasound-guided access of the right common femoral INDICATION: This is an 81-year-old gentleman with CAD and status post SVG to LAD and SVG to RCA was seen in the office recently for symptoms of shortness of breath and chest discomfort. He underwent myocardial perfusion imaging stress is and that came in to be abnormal. COMPLICATION: None APPROACH: Right common femoral artery LEVEL OF SEDATION: Moderate to sedation length of 26 minutes PROCEDURE DESCRIPTION: After obtaining an informed consent, the patient was brought to cardiac labor relations consultant. Local anesthesia was performed using lidocaine subcutaneously. The right common femoral artery was cannulated using Seldinger technique, the guidewire passed easily, following that we advanced a 6 Macedonian sheath dilator assembly, the wire and dilator were removed and sheath was flushed. Selective right and left coronary angiogram using a 6-Macedonian JR4 and JL catheters. Following that we did left heart catheterization using 6-Macedonian pigtail catheter. The procedure was completed there was no complication. SELECTIVE CORONARY ANGIOGRAM: The right coronary artery: Is chronically occluded in the midportion. The SVG to RCA is patent Left main: Has mild disease only. The left circumflex: Has mild disease only. The left anterior descending artery: The LAD is occluded in the proximal portion. The SVG to LAD is patent. The LAD distal the SVG anastomosis has a lesion appeared to be in the range of 50% has not changed compared to before CONCLUSION: 1. Severe two-vessel coronary artery disease with occluded RCA and occluded LAD 2. Patent SVG to RCA 3. Patent SVG to LAD. The LAD distal to SVG anastomosis has a lesion appeared to be in the range of 50% and change compared to before POSTPROCEDURE MANAGEMENT: Medical treatment and follow-up with the patient
[2022-07-03] MEDS ORDERED: SODIUM CHLORIDE 0.9% 1,000 ML IV SCH (10:30)
[2022-07-03 15:32] VITALS: PULSE 60
[2022-07-03 15:37] VITALS: BP 141/65
== END 2022-07-03 15:39 | disposition home or self-care (01) ==
LOC: CATHCVL 07:31
PROVIDERS: ATTEND Internal Medicine Interventional Cardiology
DX: I25.10 Atherosclerotic heart disease of native coronary artery without angina pectoris (principal); I48.0 Paroxysmal atrial fibrillation; Z95.0 Presence of cardiac pacemaker; Z95.4 Presence of other heart-valve replacement; I10 Essential (primary) hypertension; I44.2 Atrioventricular block, complete; I73.9 Peripheral vascular disease, unspecified; E78.5 Hyperlipidemia, unspecified; F17.210 Nicotine dependence, cigarettes, uncomplicated; Z88.5 Allergy status to narcotic agent; Z88.8 Allergy status to other drugs, medicaments and biological substances; Z79.1 Long term (current) use of non-steroidal anti-inflammatories (NSAID); Z79.01 Long term (current) use of anticoagulants; Z79.02 Long term (current) use of antithrombotics/antiplatelets; Z79.811 Long term (current) use of aromatase inhibitors; Z79.899 Other long term (current) drug therapy; Z98.890 Other specified postprocedural states
CPT/HCPCS: 93459; 93455; 80048; 85025; C1760; C1769 ×3; C1894 ×2; J2250; J2001; J3010; Q9967

== ENCOUNTER 2023-04-03 17:30 | Emergency (ER) | payer MEDICARE ==
[2023-04-03] MEDS ORDERED: ACETAMINOPHEN TAB 500 MG TAB PO STA (20:22)
[2023-04-03] MEDS ORDERED: IBUPROFEN 800 MG TAB PO STA (20:23)
[2023-04-03 20:35] LABS: ALT 185 U/L (4-49); AST 98 U/L (17-59); African American GFR (CKD) 68 (>60 ml/min/1.73 sqM); Albumin 4.4 g/dL (3.5-5.0); Alkaline Phosphatase 269 U/L (38-126); Anion Gap 11 mmol/L; Blood Urea Nitrogen 31 mg/dL (9-20); Calcium 9.5 mg/dL (8.4-10.2); Carbon Dioxide 28 mmol/L (22-30); Chloride 98 mmol/L (98-107); Glucose 148 mg/dL (74-99); Non-African American GFR(CKD) 59 (>60 ml/min/1.73 sqM); Potassium 4.1 mmol/L (3.5-5.1); Sodium 137 mmol/L (137-145); Total Bilirubin 6.9 mg/dL (0.2-1.3); Total Protein 7.5 g/dL (6.3-8.2)
[2023-04-03 20:45] LABS: Basophils % (A) 0 %; Eosinophils # (A) 0.1 k/uL (0-0.7); Eosinophils % (A) 1 %; HCT 39.7 % (39.0-53.0); HGB 12.5 gm/dL (13.0-17.5); Lymphocytes # (A) 0.4 k/uL (1.0-4.8); Lymphocytes % (A) 6 %; MCH 26.7 pg (25.0-35.0); MCHC 31.6 g/dL (31.0-37.0); MCV 84.7 fL (80.0-100.0); Mean Platelet Volume 9.3; Monocytes # (A) 0.5 k/uL (0-1.0); Monocytes % (A) 7 %; Neutrophils # (A) 5.7 k/uL (1.3-7.7); Neutrophils % (A) 85 %; Platelet Count 127 k/uL (150-450); RBC 4.68 m/uL (4.30-5.90); RDW 15.6 % (11.5-15.5); WBC 6.7 k/uL (3.8-10.6)
--- NOTE | 2023-04-03 21:07 | XR ---
EXAMINATION TYPE: XR chest 2V DATE OF EXAM: 04/03/2023 9:02 PM CLINICAL INDICATION:Male, 82 years old with history of SOB; COMPARISON: 09/05/2022 TECHNIQUE: XR chest 2V Frontal and lateral views of the chest. FINDINGS: Lungs/Pleura: There is no evidence of pleural effusion, focal consolidation, or pneumothorax. Pulmonary vascularity: Unremarkable. Heart/mediastinum: Cardiomediastinal silhouette is enlarged and stable. Two lead cardiac conduction d evice overlying the left hemithorax with lead tips projecting over the right ventricle and right atri um. Musculoskeletal: No acute osseous pathology. Midline sternotomy wires are noted. Other findings: None IMPRESSION: Low lung volumes with a generalized hazy appearance which could represent atelectasis versus pulmonar y edema correlate with serum BNP.
[2023-04-03] MEDS ORDERED: PIPERACILLIN-TAZOBACTAM 3.375 GM in SODIUM CHLORIDE 0.9% 100 ML IVPB STA (21:32)
--- NOTE | 2023-04-03 22:06 | ED ---
Fever HPI - General Chief Complaint: Shortness of Breath Time Seen by Provider: 04/03/23 21:29 Source: patient, RN notes reviewed, old records reviewed Mode of arrival: ambulatory Limitations: no limitations - History of Present Illness Initial Comments: This is a 82-year-old male to the emergency department today. Patient presents today for evaluation of multiple complaints shortness of breath chest pain abdominal pain. Patient is noted to have fever upon arrival does admit to feeling lightheaded and weak. Patient is a mildly poor story with suspicion of underlying undiagnosed dementia MD Complaint: fever, malaise, weakness Temperature Source: subjective Context: sick contacts Associated Symptoms: denies other symptoms Treatments Prior to Arrival: none - Related Data Home Medications Medication Instructions Recorded Confirmed traMADol HCL [Ultram] 50 mg PO DAILY PRN 09/26/16 03/31/23 Tamsulosin [Flomax] 0.8 mg PO HS 11/01/16 03/31/23 Acetaminophen Tab [Tylenol] 650 mg PO Q4-6H PRN 11/17/21 03/31/23 Apixaban [Eliquis] 5 mg PO BID 11/17/21 03/31/23 Cyclobenzaprine [Flexeril] 5 mg PO DAILY PRN 09/05/22 03/31/23 Finasteride [Proscar] 5 mg PO DAILY 09/05/22 03/31/23 Montelukast Sodium 10 mg PO DAILY 03/31/23 03/31/23 Previous Rx's Medication Instructions Recorded Isosorbide Mononitrate ER [Imdur] 30 mg PO DAILY #30 tab 09/06/22 Aspirin 81 mg PO DAILY #30 tab 04/02/23 Atorvastatin [Lipitor] 40 mg PO DAILY #30 tab 04/02/23 Ranolazine [Ranexa] 500 mg PO BID #60 tab 04/02/23 Allergies Allergy/AdvReac Type Severity Reaction Status Date / Time morphine Allergy arm pham Verified 03/31/23 15:59 and becomes beligerant codeine AdvReac Hallucinati Verified 03/31/23 15:59 ons hydrocodone [From [place]] AdvReac Hallucinati Verified 03/31/23 15:59 ons Review of Systems ROS Statement: Those systems with pertinent positive or pertinent negative responses have been documented in the HPI. ROS Other: All systems not noted in ROS Statement are negative. Past Medical History Past Medical History: Coronary Artery Disease (CAD), CVA/TIA, GERD/Reflux, Hearing Disorder / Deafness, Hyperlipidemia, Myocardial Infarction ([place]), Osteoarthritis (OA), Prostate Disorder, Skin Disorder, Sleep Apnea/CPAP/BIPAP, Vascular Disorder Additional Past Medical History / Comment(s): CVA with no residual, TIAs, "silent migraines"-pt gets blurry vision, mild headache, PVD, pt cannot tolerate statins, hiatal hernia, peptic ulcer, anemia, chronic lower extremity edema, kidney stones/had shockwave treatment, BPH, JEFF/does not tolerate device, seasonal allergies, sinus problems, precancerous lesions removed from scalp, recent SOB w/exertion, fatigue Last Myocardial Infarction Date:: 2014 History of Any Multi-Drug Resistant Organisms: None Reported Past Surgical History: Cardiac Valve Replacement, Coronary Bypass/CABG, Heart Catheterization, Joint Replacement, Orthopedic Surgery, Pacemaker, Tonsillectomy Additional Past Surgical History / Comment(s): 2014 CABG 2 vessel with aortic valve replaced and mitral valve repaired, pacemaker, TEEs, R caratid endarte ctomy, decompression pseudoaneurysm R groin, R elbow ulnar nerve release, total L/R knee arthroplasties, lithtripsies, EGD, colonoscopy. Past Anesthesia/Blood Transfusion Reactions: Motion Sickness Additional Past Anesthesia/Blood Transfusion Reaction / Comment(s): motion sickness as child Type of Cardiac Device: Permanent Pacemaker Device Placement Date:: 09/2019 Past Psychological History: No Psychological Hx Reported Smoking Status: Former smoker Past Alcohol Use History: Occasional Past Drug Use History: None Reported - Past Family History Brother(s) Family Medical History: No Reported History Mother Additional Family Medical History / Comment(s): Mother grew up in [facility]. She had rickett's Father Family Medical History: Cancer, Pneumonia General Exam General appearance: alert, anxious, in distress Head exam: Present: atraumatic, normocephalic, normal inspection Eye exam: Present: normal appearance, PERRL, EOMI. Absent: scleral icterus, conjunctival injection, periorbital swelling ENT exam: Present: normal exam, mucous membranes moist Neck exam: Present: normal inspection. Absent: tenderness, meningismus, lymphadenopathy Respiratory exam: Present: normal lung sounds bilaterally. Absent: respiratory distress, wheezes, rales, rhonchi, stridor Cardiovascular Exam: Present: regular rate, normal rhythm, normal heart sounds. Absent: systolic murmur, diastolic murmur, rubs, gallop, clicks GI/Abdominal exam: Present: soft, tenderness, normal bowel sounds. Absent: distended, guarding, rebound, rigid Extremities exam: Present: normal inspection, full ROM, normal capillary refill. Absent: tenderness, pedal edema, joint swelling, calf tenderness Back exam: Present: normal inspection Neurological exam: Present: alert, oriented X3, CN II-XII intact Psychiatric exam: Present: normal affect, normal mood Skin exam: Present: warm, dry, intact, normal color. Absent: rash Course Vital Signs 04/04/23 04/04/23 00:00 02:00 Temperature 99.0 F 98.9 F Pulse Rate 95 85 Respiratory 17 19 Rate Blood Pressure 95/68 112/72 O2 Sat by Pulse 94 L 94 L Oximetry - Reevaluation(s) Reevaluation #1: 04/03/23 22:44 Medical record is reviewed Reevaluation #2: 04/03/23 22:44 Patient's symptoms improving Reevaluation #3: 04/04/23 00:42 Patient informed results and questions answered Reevaluation #4: 04/03/23 22:44 Was pt. sent in by a medical professional or institution (PERICO Orozco, HEALTHCARE RECEPTIONIST, urgent care, hospital, or senior living...) When possible be specific @ -no Did you speak to anyone other than the patient for history (EMS, parent, family, police, friend...)? What history was obtained from this source @ -no Did you review nursing and triage notes (agree or disagree)? Why? @ -agree Are old charts reviewed (outside hosp., previous admission, EMS record, old EKG, old radiological studies, urgent care reports/EKG's, senior living records)? Report findings @ -yes Differential Diagnosis (chest pain, altered mental status, abdominal pain women, abdominal pain men, vaginal bleeding, weakness, fever, dyspnea, syncope, headache, dizziness, GI bleed, back pain, seizure, CVA, palpatations, mental health, musculoskeletal)? @ -prior EKG interpreted by me (3pts min.). @ -yes X-rays interpreted by me (1pt min.). @ -yes CT interpreted by me (1pt min.). @ -yes U/S interpreted by me (1pt. min.). @ -no What testing was considered but not performed or refused? (CT, X-rays, U/S, labs)? Why? @ -none What meds were considered but not given or refused? Why? @ -none Did you discuss the management of the patient with other professionals (professionals i.e. Dr., PA, HEALTHCARE RECEPTIONIST, lab, RT, psych nurse, social sciences chair, crane chaser, teacher, youth corrections officer, welfare case worker)? Give summary @ -no Was smoking cessation discussed for >3mins.? @ -no Was critical care preformed (if so, how long)? @ -no Were there social determinants of health that impacted care today? How? (Homelessness, low income, unemployed, alcoholism, drug addiction, transportat ion, low edu. Level, literacy, decrease access to med. care, prison, rehab)? @ -none Was there de-escalation of care discussed even if they declined (Discuss DNR or withdrawal of care, Hospice)? DNR status @ -no What co-morbidities impacted this encounter? (DM, HTN, Smoking, COPD, CAD, Cancer, CVA, ARF, Chemo, Hep., AIDS, mental health diagnosis, sleep apnea, morbid obesity)? @ -none Was patient admitted / discharged? Hospital course, mention meds given and route, prescriptions, significant lab abnormalities, going to OR and other pertinent info. @ -82 male in significant distress with abdominal pain chest pain and fever here in the ER. Patient does have acute pancreatitis with fever, underlying mild heart failure,, patient does have seeming gallbladder disease or gallbladder sludge on bile duct dilation will need transfer for GI evaluation and treatment Transferred to [facility] Admitted Undiagnosed new problem with uncertain prognosis? @ -no Drug Therapy requiring intensive monitoring for toxicity (Heparin, Nitro, Insulin, Cardizem)? @ -no Were any procedures done? @ -no Diagnosis/symptom? @ -, Bile duct dilation, gallbladder cholecystitis with acute pancreatitis Acute, or Chronic, or Acute on Chronic? @ -Acute Uncomplicated (without systemic symptoms) or Complicated (systemic symptoms)? @ -Complicated Side effects of treatment? @ -no Exacerbation, Progression, or Severe Exacerbation? @ -exacerbation Poses a threat to life or bodily function? How? (Chest pain, [place], [place], pneumonia, PE, COPD, DKA, ARF, appy, cholecystitis, CVA, Diverticulitis, Homicidal, Suic idal, threat to staff... and all critical care pts) @ -yes Reevaluation #5: 04/03/23 22:44 Differential Fever: Pneumonia, viral URI, endocarditis, myocarditis, pericarditis, otitis, sinusitis, peritonsillar Abscess, retropharyngeal Abscess, epiglottitis, peritonitis, appendicitis, Cheryl cystitis, diverticulitis, hepatitis, colitis, UTI, PID, TOA, pyelonephritis, prostatitis, epididymitis, meningitis, encephalitis, pulmonary embolism, CVA, thyroid storm, pancreatitis, adrenal crisis, cavernous sinus thrombosis, this is not meant to be an all-inclusive list. - Consultations Consultation #1: (Dr. Gayle agrees to admit this patient Medical Decision Making - Medical Decision Making 82 male in significant distress with abdominal pain chest pain and fever here in the ER. Patient does have acute pancreatitis with fever, underlying mild heart failure,, patient does have seeming gallbladder disease or gallbladder sludge on bile duct dilation will need transfer for GI evaluation and treatment - Lab Data Result diagrams: 04/03/23 19:00 04/03/23 19:00 Lab Results 04/03/23 04/03/23 04/03/23 Range/Units 19:00 19:00 19:00 WBC 6.7 (3.8-10.6) k/uL RBC 4.68 (4.30-5.90) m/uL Hgb 12.5 L (13.0-17.5) gm/dL Hct 39.7 (39.0-53.0) % MCV 84.7 (80.0-100.0) fL MCH 26.7 (25.0-35.0) pg MCHC 31.6 (31.0-37.0) g/dL RDW 15.6 H (11.5-15.5) % Plt Count 127 L (150-450) k/uL MPV 9.3 Neutrophils % 85 % Lymphocytes % 6 % Monocytes % 7 % Eosinophils % 1 % Basophils % 0 % Neutrophils # 5.7 (1.3-7.7) k/uL Lymphocytes # 0.4 L (1.0-4.8) k/uL Monocytes # 0.5 (0-1.0) k/uL Eosinophils # 0.1 (0-0.7) k/uL Basophils # 0.0 (0-0.2) k/uL Sodium 137 (137-145) mmol/L Potassium 4.1 (3.5-5.1) mmol/L Chloride 98 (98-107) mmol/L Carbon Dioxide 28 (22-30) mmol/L Anion Gap 11 mmol/L BUN 31 H (9-20) mg/dL Creatinine 1.15 (0.66-1.25) mg/dL Est GFR (CKD-EPI)AfAm 68 (>60 ml/min/1.73 sqM) Est GFR (CKD-EPI)NonAf 59 (>60 ml/min/1.73 sqM) Glucose 148 H (74-99) mg/dL Calcium 9.5 (8.4-10.2) mg/dL Total Bilirubin 6.9 H (0.2-1.3) mg/dL AST 98 H (17-59) U/L ALT 185 H (4-49) U/L Alkaline Phosphatase 269 H (38-126) U/L Troponin I 0.017 (0.000-0.034) ng/mL Total Protein 7.5 (6.3-8.2) g/dL Albumin 4.4 (3.5-5.0) g/dL Lipase (23-300) U/L Urine Color Urine Appearance (Clear) Urine pH (5.0-8.0) Ur Specific [place] (1.001-1.035) Urine Protein (Negative) Urine Glucose (UA) (Negative) Urine Ketones (Negative) Urine Blood (Negative) Urine Nitrite (Negative) Urine Bilirubin (Negative) Urine Urobilinogen (<2.0) mg/dL Ur Leukocyte Esterase (Negative) Urine RBC (0-5) /hpf Urine WBC (0-5) /hpf Ur Squamous Epith Cells (0-4) /hpf Amorphous Sediment (None) /hpf Hyaline Casts (0-2) /lpf Urine Mucus (None) /hpf Influenza Type A (PCR) (Not Detectd) Influenza Type B (PCR) (Not Detectd) RSV (PCR) (Not Detectd) SARS-CoV-2 (PCR) (Not Detectd) 04/03/23 04/03/23 04/03/23 Range/Units 20:30 21:37 23:14 WBC (3.8-10.6) k/uL RBC (4.30-5.90) m/uL Hgb (13.0-17.5) gm/dL Hct (39.0-53.0) % MCV (80.0-100.0) fL MCH (25.0-35.0) pg MCHC (31.0-37.0) g/dL RDW (11.5-15.5) % Plt Count (150-450) k/uL MPV Neutrophils % % Lymphocytes % % Monocytes % % Eosinophils % % Basophils % % Neutrophils # (1.3-7.7) k/uL Lymphocytes # (1.0-4.8) k/uL Monocytes # (0-1.0) k/uL Eosinophils # (0-0.7) k/uL Basophils # (0-0.2) k/uL Sodium (137-145) mmol/L Potassium (3.5-5.1) mmol/L Chloride (98-107) mmol/L Carbon Dioxide (22-30) mmol/L Anion Gap mmol/L BUN (9-20) mg/dL Creatinine (0.66-1.25) mg/dL Est GFR (CKD-EPI)AfAm (>60 ml/min/1.73 sqM) Est GFR (CKD-EPI)NonAf (>60 ml/min/1.73 sqM) Glucose (74-99) mg/dL Calcium (8.4-10.2) mg/dL Total Bilirubin (0.2-1.3) mg/dL AST (17-59) U/L ALT (4-49) U/L Alkaline Phosphatase (38-126) U/L Troponin I (0.000-0.034) ng/mL Total Protein (6.3-8.2) g/dL Albumin (3.5-5.0) g/dL Lipase 782 H (23-300) U/L Urine Color Yellow Urine Appearance Clear (Clear) Urine pH 7.0 (5.0-8.0) Ur Specific [place] 1.019 (1.001-1.035) Urine Protein Trace H (Negative) Urine Glucose (UA) Negative (Negative) Urine Ketones Negative (Negative) Urine Blood Trace H (Negative) Urine Nitrite Negative (Negative) Urine Bilirubin 1+ H (Negative) Urine Urobilinogen 8.0 (<2.0) mg/dL Ur Leukocyte Esterase Negative (Negative) Urine RBC 4 (0-5) /hpf Urine WBC 2 (0-5) /hpf Ur Squamous Epith Cells <1 (0-4) /hpf Amorphous Sediment Occasional H (None) /hpf Hyaline Casts 14 H (0-2) /lpf Urine Mucus Rare H (None) /hpf Influenza Type A (PCR) Not Detected (Not Detectd) Influenza Type B (PCR) Not Detected (Not Detectd) RSV (PCR) Not Detected (Not Detectd) SARS-CoV-2 (PCR) Not Detected (Not Detectd) - Radiology Data Radiology results: report reviewed (Ultrasound showing gallbladder sludge, chest x-ray showing pulmonary edema CT head and pelvis is positive for gallbladder sludge, common bile duct dilation), image reviewed Disposition Clinical Impression: Acute pulmonary edema, Congestive heart failure, Atypical chest pain, Fever, Pancreatitis, Weakness, Common bile duct dilatation, Hyperbilirubinemia, Renal failure, Chest pain Disposition: OTHER INSTITUTION NOT DEFINED Condition: Serious Is patient prescribed a controlled substance at d/c from ED?: No Referrals: Jimmie Gayle MD [Primary Care Provider] - 1-2 days Time of Disposition: 00:40 - Out of Hospital Transfer - Req. Specs Out of Hospital Transfer - Requested Specifics: Other Emergency Center ([facility])
[2023-04-03 22:43] LABS: Amorphous Sediment,Urine Occasional /hpf; Appearance,Urine Clear (Clear); Bilirubin,Urine 1+ (Negative); Blood,Urine Trace (Negative); Color,Urine Yellow; Glucose,Urine (UA) Negative (Negative); Hyaline Casts,Urine 14 /lpf (0-2); Ketones,Urine Negative (Negative); Leukocyte Esterase,Urine Negative (Negative); Mucus,Urine Rare /hpf; Nitrite,Urine Negative (Negative); Protein,Urine Trace (Negative); RBC,Urine 4 /hpf (0-5); Specific Gravity,Urine 1.019 (1.001-1.035); Squamous Epithelial Cell,Urine <1 /hpf (0-4); WBC,Urine 2 /hpf (0-5)
[2023-04-03] MEDS ORDERED: SODIUM CHLORIDE 0.9% 1,000 ML IV STA ×2 (22:45)
[2023-04-03] MEDS ORDERED: HYDROmorphone 0.5 MG/0.5 ML SYRINGE IVP STA (22:57)
--- NOTE | 2023-04-03 23:02 | US ---
EXAM: US Abdomen Limited, Gallbladder CLINICAL HISTORY: ITS.REASON US Reason: pain TECHNIQUE: Real-time ultrasound of the right upper quadrant with image documentation. COMPARISON: 09/30/2019. FINDINGS: Liver: Liver measures 14.9 cm and is unremarkable. Gallbladder: Small gallstones and sludge noted within the gallbladder. Negative ultrasound graphic Ramos sign. Gallbladder is not visualized. Common bile duct: Unremarkable as visualized. No stones. No dilation. Pancreas: The pancreas is obscured by bowel gas. Right kidney: A 1.7 cm simple cyst at the mid to lower pole region of the right kidney is noted. IMPRESSION: 1. Small gallstones and sludge within the gallbladder. 2. Negative ultrasound Ramos sign. 3. Common bile duct was not visualized.
[2023-04-04] MEDS ORDERED: HYDROmorphone 0.5 MG/0.5 ML SYRINGE IVP PRN (00:29)
[2023-04-04] MEDS ORDERED: NALOXONE 0.4 MG/ML 1 ML VIAL IV PRN (00:29)
[2023-04-04] MEDS ORDERED: ONDANSETRON 4 MG/2 ML VIAL IVP PRN (00:29)
--- NOTE | 2023-04-04 00:36 | CT ---
EXAM: CT Abdomen and Pelvis With Intravenous Contrast CLINICAL HISTORY: ITS.REASON CT Reason: pain TECHNIQUE: Axial computed tomography images of the abdomen and pelvis with intravenous contrast. CTDI is 25 mGy and DLP is 1300.5 mGy-cm. This CT exam was performed using one or more of the following dose reduction techniques: automated exposure control, adjustment of the mA and/or kV according to patient size, and/or use of iterative reconstruction technique. COMPARISON: No previous studies. FINDINGS: Lung bases: Possible pulmonary edema suggested at the lung bases. Alternatively, findings could be on the basis scarring versus subsegmental atelectasis. Atypical pneumonia is felt to be unlikely possibility. Pleural space: Unremarkable. No pneumothorax. No pleural effusions. Heart: Cardiomegaly. Mediastinum: Small hiatal hernia and distal esophagitis. ABDOMEN: Liver: Fatty liver. Gallbladder and bile ducts: Small gallstones are noted within the gallbladder. The common bile duct as seen on series 202 image 41 measures 1.5 cm and is dilated of uncertain etiology. No radiopaque filling defect within the common bile duct is noted. Pancreas: See below. Spleen: Spleen is normal in contour. Adrenals: The adrenal glands, the head, body, tail of the pancreas are unremarkable. Kidneys and ureters: Best seen on series 2 0 image 48 and series 2 0 image 45, there is a 1.3 cm enhancing lesion in the mid pole region of the right kidney. Atrophic kidneys. Nonobstructing left renal calculi the largest of which measures 0.6 cm in the upper pole region of the left kidney. Stomach and bowel: Moderate quantity of ingested material in the stomach. Moderate quantity of stool throughout the colon. Diverticulosis without diverticulitis. No obstruction. PELVIS: Appendix: Appendix is seen on coronal image 44 and is unremarkable. Bladder: Unremarkable. No mass. Reproductive: Enlarged heterogeneous prostate gland. ABDOMEN and PELVIS: Intraperitoneal space: Unremarkable. No free air. No significant fluid collection. Bones/joints: Sternotomy wires are noted in place and partially visualized. No acute fracture. No dislocation. No spondylolysis. Soft tissues: 3 cm umbilical hernia containing mesenteric fat. 3.7 cm left inguinal hernia. Vasculature: Unremarkable. No abdominal aortic aneurysm. Lymph nodes: Unremarkable. No enlarged lymph nodes. Other findings: ASCVD. The finding is equivocal. IMPRESSION: 1. Cardiomegaly. 2. Small hiatal hernia and distal esophagitis. 3. No ASCVD. 4. Gallbladder is mildly distended. 5. Common bile duct measures 1.5 cm is dilated without choledocholithiasis. This finding is equivocal. MRCP study is suggested to follow-up for further correlation as deemed clinically necessary. 6. Enhancing lesion midpole region of the right kidney seen on series 202 image 45. Etiology such as early renal cell carcinoma cannot be excluded. MRI imaging of the abdomen with contrast demonstration is advised for further assessment for 7. The appendix is unremarkable 8. No bowel obstruction. 9. Diverticulosis without diverticulitis. 10. Umbilical hernia containing only mesenteric fat. 11. Enlarged heterogeneous prostate gland. 12. Left inguinal hernia containing only mesenteric fat.
[2023-04-04 03:55] VITALS: BP 112/72; PULSE 85; RESP 19; TEMP 98.9
[2023-04-04] MEDS ORDERED: PIPERACILLIN-TAZOBACTAM 3.375 GM in SODIUM CHLORIDE 0.9% 100 ML IVPB SCH (07:00)
== END 2023-04-04 04:08 | disposition other institution (70) ==
LOC: EC 17:30 → UNDOADMIN 04-04 00:29 → 5NMEDONC 04-04 00:29 → 4SSUR 04-04 01:05 → 5NMEDONC 04-04 01:05 → 4SSUR 04-04 01:07 → 5NMEDONC 04-04 02:46 → 4SSUR 04-04 02:46 → EC 04-04 04:08
DX: I50.1 Left ventricular failure, unspecified (principal); K85.90 Acute pancreatitis without necrosis or infection, unspecified; K83.8 Other specified diseases of biliary tract; E80.6 Other disorders of bilirubin metabolism; K81.9 Cholecystitis, unspecified; N19 Unspecified kidney failure; B96.20 Unspecified Escherichia coli [E. coli] as the cause of diseases classified elsewhere; I25.10 Atherosclerotic heart disease of native coronary artery without angina pectoris; I25.2 Old myocardial infarction; Z20.822 Contact with and (suspected) exposure to COVID-19; Z79.01 Long term (current) use of anticoagulants; Z79.899 Other long term (current) drug therapy; Z88.5 Allergy status to narcotic agent; Z95.1 Presence of aortocoronary bypass graft; Z86.73 Personal history of transient ischemic attack (TIA), and cerebral infarction without residual deficits; Z87.891 Personal history of nicotine dependence
CPT/HCPCS: 99285; 96365; 96375; 36415; 80053; 83690; 84484; 85025; 81001; 87040; 87077; 87186; 87636; 71046; 76705; 74177; 96361 ×3; J2543; J1170; Q9967

== ENCOUNTER → 2023-05-21 | Outpatient (CLI) | payer MEDICARE | LOC: CPPFTMAIN 08:03 | PROVIDERS: ATTEND Otolaryngology | DX: R05.3 Chronic cough (principal); Z88.5 Allergy status to narcotic agent; Z87.891 Personal history of nicotine dependence | CPT/HCPCS: 94060; 94726; 94729 ==

== ENCOUNTER → 2023-12-03 | Outpatient (CLI) | payer MEDICARE ==
--- NOTE | 2023-12-03 14:26 | US ---
EXAMINATION TYPE: US abdomen comp/pelvis limited DATE OF EXAM: 12/03/2023 COMPARISON: CT & US 2022, US 2019 CLINICAL INDICATION: Male, 83 years old with history of R10.2 PELVIC AND PERINEAL PAIN; EXAM MEASUREMENTS: Liver Length: 15.6 cm CBD: 0.9 cm Spleen: 12.1 cm Right Kidney: 10.0 x 5.8 x 5.2 cm Left Kidney: 9.9 x 5.3 x 6.1 cm Pancreas: obscured by overlying midline bowel gas Liver: scanned intercostally, visualized portions appear wnl Gallbladder: surgically absent CBD: borderline dilated Spleen: wnl Right Kidney: 1.2cm hypoechoic area lateral inferior pole, 0.6cm echogenic focus superior pole Left Kidney: 0.6cm echogenic focus mid inferior pole Upper IVC: wnl Abd Aorta: proximal portion obscured by overlying midline bowel gas, visualized portions of mid and distal aorta appear wnl Bladder: not fully distended, appears wnl as seen IMPRESSION: No evidence for acute process. 1. Indeterminate left renal lesion not clearly seen on prior. Consider cross-sectional imaging MRI t his concern for renal mass. 2. Nonobstructing bilateral renal calculi.
== END | disposition home or self-care (01) ==
LOC: RADUSWWP 13:16
PROVIDERS: ATTEND Internal Medicine Gastroenterology
DX: N20.0 Calculus of kidney (principal)
CPT/HCPCS: 76700; 76857

== ENCOUNTER → 2024-05-19 | Outpatient (CLI) | payer MEDICARE ==
[2024-05-19 13:24] LABS: African American GFR (CKD) 66 (>60 ml/min/1.73 sqM); Blood Urea Nitrogen 31 mg/dL (9-20); Non-African American GFR(CKD) 57 (>60 ml/min/1.73 sqM)
--- NOTE | 2024-05-19 14:03 | CT ---
EXAMINATION TYPE: CT chest w con CT DLP: 354 mGycm, Automated exposure control for dose reduction was used. DATE OF EXAM: 05/19/2024 1:41 PM COMPARISON: CTA thoracoabdominal pelvic aorta 03/31/2023, chest radiograph 05/08/2024. CLINICAL INDICATION:Male, 83 years old with history of R04.2 hemoptysis; PHH, hemoptysis TECHNIQUE: Multiple axial images were obtained through the chest following the administration of 100 cc of Isovue 300. . Coronal and sagittal reformats reviewed. FINDINGS: LUNGS/ PLEURA: No pleural effusion, pneumothorax, or focal consolidation. Patchy subtle mosaic attenu ation likely representing air-trapping. No suspicious pulmonary nodule or mass. AIRWAY: Patent and unremarkable.. HEART: Moderately enlarged. Aortic valvular calcifications. Mitral annulus repair. Postsurgical murphy es from CABG. Leads within the right atrium and right ventricle. MEDIASTINUM: No gross evidence of adenopathy. VASCULATURE: No aortic aneurysm. Mild atherosclerotic calcification of the aorta and its branches. B ovine aortic arch. Left upper chest wall to lead pacemaking device. Reflux of contrast into the IVC a nd hepatic veins. Dilated main pulmonary artery measuring up to 4.0 cm consistent with pulmonary brooks rial hypertension. No central pulmonary embolism. MUSCULOSKELETAL: No acute osseous abnormalities. Median sternotomy wires. [facility] of the mid to lower th oracic spine. Moderate degenerative disc disease of the visualized lumbar spine. SOFT TISSUES/LYMPH NODES: Unremarkable. LOWER NECK: No significant findings. UPPER ABDOMEN: Gallbladder is surgically absent. Nonobstructive left renal 6 mm calculus. IMPRESSION: 1. No CT evidence for acute thoracic process. 2. Moderate cardiomegaly with findings of right heart dysfunction. 3. Dilated main pulmonary artery consistent with pulmonary arterial hypertension. 4. Nonobstructive left renal calculus. [facility], , 05/19/2024 2:01 PM
== END | disposition home or self-care (01) ==
LOC: RADCTMAIN 12:47
PROVIDERS: ATTEND Internal Medicine
CPT/HCPCS: 36415; 71260; 82565; 84520

== ENCOUNTER 2024-06-03 11:21 | Day surgery (SDC) | payer MEDICARE ==
[~2024-06-03 11:21] MED LIST changes: -ALPRAZolam 0.25 MG TAB PO PRN; -ALPRAZolam 0.5 MG TAB PO PRN; -ASPIRIN 325 MG TAB PO ONE; +LACTATED RINGERS 1,000 ML IV SCH; -NITROGLYCERIN SL TABS 0.4 MG TAB SUBLINGUAL PRN; +ONDANSETRON 4 MG/2 ML VIAL IVP ONE; -SODIUM CHLORIDE 0.9% 1,000 ML in EMPTY BAG 1 BAG IV SCH
[2024-06-03] MEDS: IV FLUID CONTINUATION 1,000 ML IV ONE (11:42)
[2024-06-03 11:52] VITALS: TEMP 96.9
[2024-06-03] MEDS ORDERED: PROPOFOL 10 MG/ML 20 ML VIAL IV ONE (12:17)
[2024-06-03] MEDS ORDERED: LIDOCAINE 1% INJ 10MG/ML (20 ML MDV) ONE (12:17)
[2024-06-03] MEDS: LIDOCAINE 2% URO-JET JELLY 5 ML KIT MISCELLANE ONE (12:24)
[2024-06-03] MEDS: LIDOCAINE 2% INJ 20 MG/ML INTRATRACH ONE (12:25)
[2024-06-03 13:06] VITALS: BP 121/68; PULSE 64; RESP 16
--- NOTE | 2024-06-03 19:36 | OP ---
OPERATIVE REPORT DATE OF SERVICE : OPERATION: Bronchoscopy, airway examination, and random bronchial washing from different areas of the lungs. PREOPERATIVE DIAGNOSIS: Hemoptysis, recurrent. POSTOPERATIVE DIAGNOSIS: Hemoptysis secondary to friable mucosa and bronchitis. ANESTHESIA USED: IV conscious sedation. DESCRIPTION OF PROCEDURE: The patient was prepared according to the bronchoscopy protocol. O2 was applied via Ventimask. The patient was brought into the bronchoscopy suite and placed in a supine position, Ventimask was applied. We monitored his O2 saturation continuously, blood pressure was intermittently monitored, cardiac rhythm was continuously monitored. After adequate IV conscious sedation, the bronchoscope was advanced through the Ventimask into the area of the bite block, which was applied. Examination of the vocal cords was done. The vocal cords were noted to be patent and no evidence of any mucosal lesions on the vocal cords or around the area of the vocal cords. Then, lidocaine was applied over the vocal cords, and the bronchoscope was advanced further down. Thorough examination was done of the trachea, macy, right upper lobe, right middle lobe, right lower lobe, left upper lobe, lingula, and left lower lobe. There was no evidence of any endobronchial tumors. There was no evidence of hemoptysis during my examination except the mucosa was noted to be extremely friable, and bled easily just by barely touching it with the bronchoscope. There was evidence of some purulent secretions. These were washed and lavaged from the different airways. Again, no endobronchial pathology noted except for friable mucosa and the mucosa was bleeding easily. There was evidence of purulent secretions, no active hemoptysis was noted prior to the procedure. The procedure was well tolerated. Fluid was sent for different diagnostic studies. No evidence of any complications. MMODL / IJN: [id number] /
[2024-06-03 21:53] LABS: Appearance,BF Cloudy (Clear); RBC, Body Fluid 4875 /UL (0-2000)
[2024-06-04 08:50] LABS: Nucleated Cells, Body Fluid 270 /UL
== END 2024-06-03 13:30 | disposition home or self-care (01) ==
LOC: ORWHC2ENDO 11:21
PROVIDERS: ATTEND Internal Medicine
DX: J40 Bronchitis, not specified as acute or chronic (principal); I10 Essential (primary) hypertension; I48.91 Unspecified atrial fibrillation; K21.9 Gastro-esophageal reflux disease without esophagitis; I27.20 Pulmonary hypertension, unspecified; Z86.73 Personal history of transient ischemic attack (TIA), and cerebral infarction without residual deficits; Z79.01 Long term (current) use of anticoagulants; Z79.82 Long term (current) use of aspirin; Z95.5 Presence of coronary angioplasty implant and graft; Z88.5 Allergy status to narcotic agent; Z88.6 Allergy status to analgesic agent; Z79.899 Other long term (current) drug therapy
CPT/HCPCS: 89050; 87070; 87205; 87116; 87102; 87206; 31624; J2003 ×2; J2704

== ENCOUNTER 2024-08-27 23:08 | Emergency (ER) | payer MEDICARE ==
[2024-08-27 23:13] VITALS: TEMP 98.8
--- NOTE | 2024-08-27 23:36 | ED ---
Abdominal Pain HPI - General Chief Complaint: Abdominal Pain Stated Complaint: Abdominal Pain Time Seen by Provider: 08/27/24 23:34 Source: patient, family (), RN notes reviewed Mode of arrival: wheelchair Limitations: no limitations - History of Present Illness Initial Comments: 83-year-old male presented the ER for evaluation of left lower quadrant abdominal pain. Patient reports last week he noticed left flank pain that subsided. He states for the past 2 days he has been having having an intermittent sharp abdominal pain in his left lower quadrant. Patient reports the pain will come and go. No aggravating factors. Patient does report a distant history of kidney stones approximately 40 years ago. He denies any dysuria, urinary frequency or retention. Patient does follow-up with Dr. Wray and states he is scheduled for outpatient ultrasound tomorrow. Patient reports normal bowel movements 2 today. He denies any fevers, chills, cough, congestion, chest pain, shortness of breath, dizziness, lightheadedness. Patient does report chronic peripheral edema for which she takes Lasix. Patient also takes Flomax. - Related Data Home Medications Medication Instructions Recorded Confirmed traMADol HCL [Ultram] 50 mg PO DAILY PRN 09/26/16 06/03/24 Tamsulosin [Flomax] 0.8 mg PO HS 11/01/16 06/03/24 Acetaminophen Tab [Tylenol] 650 mg PO Q4-6H PRN 11/17/21 06/03/24 Apixaban [Eliquis] 5 mg PO BID 11/17/21 06/01/24 Cyclobenzaprine [Flexeril] 5 mg PO DAILY PRN 09/05/22 06/03/24 Finasteride [Proscar] 5 mg PO DAILY 09/05/22 06/03/24 Montelukast Sodium 10 mg PO DAILY 03/31/23 06/03/24 Diclofenac Sodium [Voltaren] 75 mg PO BID PRN 06/01/24 06/03/24 Vit D(Unk) 5,000 units PO DAILY 06/01/24 06/03/24 Previous Rx's Medication Instructions Recorded Aspirin 81 mg PO DAILY #30 tab 04/02/23 Amoxic-Pot Clav 875-125Mg 1 tab PO Q12HR #14 tab 08/28/24 [Augmentin 875-125] Allergies Allergy/AdvReac Type Severity Reaction Status Date / Time morphine Allergy arm pham Verified 06/03/24 11:47 and becomes beligerant codeine AdvReac Hallucinati Verified 06/03/24 11:47 ons hydrocodone [From [place]] AdvReac Hallucinati Verified 06/03/24 11:47 ons Review of Systems ROS Statement: Those systems with pertinent positive or pertinent negative responses have been documented in the HPI. ROS Other: All systems not noted in ROS Statement are negative. Past Medical History Past Medical History: Coronary Artery Disease (CAD), CVA/TIA, GERD/Reflux, Hearing Disorder / Deafness, Hyperlipidemia, Myocardial Infarction (GA), Osteoarthritis (OA), Prostate Disorder, Skin Disorder, Sleep Apnea/CPAP/BIPAP, Vascular Disorder Additional Past Medical History / Comment(s): CVA with no residual, TIAs, "silent migraines"-pt gets blurry vision, mild headache, PVD, pt cannot tolerate statins, inguinal hernia, peptic ulcer, anemia, chronic lower extremity edema, kidney stones/had shockwave treatment, BPH, JEFF/does not tolerate device, seasonal allergies, sinus problems, precancerous lesions removed from scalp, recent SOB w/exertion, fatigue Last Myocardial Infarction Date:: 2014 History of Any Multi-Drug Resistant Organisms: None Reported Past Surgical History: Cardiac Valve Replacement, Cholecystectomy, Coronary Bypass/CABG, Heart Catheterization, Joint Replacement, Orthopedic Surgery, Pacemaker, Tonsillectomy Additional Past Surgical History / Comment(s): 2014 CABG 2 vessel with 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 alycia cataracts removed Past Anesthesia/Blood Transfusion Reactions: Motion Sickness Additional Past Anesthesia/Blood Transfusion Reaction / Comment(s): motion sickness as child Type of Cardiac Device: Permanent Pacemaker Device Placement Date:: 09/2019 Past Psychological History: No Psychological Hx Reported Smoking Status: Former smoker - Past Family History Brother(s) Family Medical History: No Reported History Mother Additional Family Medical History / Comment(s): Mother grew up in [facility]. She had rickett's Father Family Medical History: Cancer, Pneumonia General Exam Limitations: no limitations General appearance: alert, in no apparent distress Respiratory exam: Present: normal lung sounds bilaterally. Absent: respiratory distress, wheezes, rales, rhonchi, stridor Cardiovascular Exam: Present: regular rate, normal rhythm, normal heart sounds. Absent: systolic murmur, diastolic murmur, rubs, gallop, clicks GI/Abdominal exam: Present: soft, tenderness (Left lower quadrant), normal bowel sounds Extremities exam: Present: normal inspection, full ROM, normal capillary refill, other (Nonpitting edema bilaterally pretibial). Absent: tenderness, pedal edema, joint swelling, calf tenderness Neurological exam: Present: alert, oriented X3, CN II-XII intact Skin exam: Present: warm, dry, intact, normal color. Absent: rash Course Vital Signs 08/27/24 08/28/24 23:09 00:13 Temperature 98.8 F Pulse Rate 70 74 Respiratory 20 18 Rate Blood Pressure 118/75 122/85 O2 Sat by Pulse 94 L 95 Oximetry Medical Decision Making - Medical Decision Making Was pt. sent in by a medical professional or institution (, PA, VOCATIONAL TRAINING INSTRUCTOR, urgent care, hospital, or senior living...) When possible be specific @ -No Did you speak to anyone other than the patient for history (EMS, parent, family, police, friend...)? What history was obtained from this source @ -Patient's , at bedside, aiding in HPI and past medical history. Did you review nursing and triage notes (agree or disagree)? Why? @ -I reviewed and agree with nursing and triage notes Were old charts reviewed (outside hosp., previous admission, EMS record, old EKG, old radiological studies, urgent care reports/EKG's, senior living records)? Report findings @ -No old charts were reviewed Differential Diagnosis (chest pain, altered mental status, abdominal pain women, abdominal pain men, vaginal bleeding, weakness, fever, dyspnea, syncope, headache, dizziness, GI bleed, back pain, seizure, CVA, palpatations, mental health, musculoskeletal)? @ -Differential Abdominal Pain Men:Appendicitis, cholecystitis, diverticulosis, ischemic bowel, pancreatitis, hepatitis, UTI, gastroenteritis, AAA, incarcerated hernia, bowel obstruction, constipation, inflammatory bowel, hepatitis, peptic ulcer disease, splenic infarction, perforated viscus, testicular torsion, this is not meant to be an all-inclusive list EKG interpreted by me (3pts min.). @ -None done X-rays interpreted by me (1pt min.). @ -None done CT interpreted by me (1pt min.). @ -CT abdomen pelvis showing mild diverticulitis of the distal descending colon. Nonobstructing left renal stones measuring up to 5 mm. Cholecystectomy. U/S interpreted by me (1pt. min.). @ -None done What testing was considered but not performed or refused? (CT, X-rays, U/S, labs)? Why? @ -None What meds were considered but not given or refused? Why? @ -None Did you discuss the management of the patient with other professionals (professionals i.e. DrPatrice, PA, VOCATIONAL TRAINING INSTRUCTOR, lab, RT, psych nurse, social service assistant, advisory intern, te acher, special assets officer, case assistant)? Give summary @ -No Was smoking cessation discussed for >3mins.? @ -No Was critical care preformed (if so, how long)? @ -No Were there social determinants of health that impacted care today? How? (Homelessness, low income, unemployed, alcoholism, drug addiction, transportation, low edu. Level, literacy, decrease access to med. care, group home, rehab)? @ -No Was there de-escalation of care discussed even if they declined (Discuss DNR or withdrawal of care, Hospice)? DNR status @ -No What co-morbidities impacted this encounter? (DM, HTN, Smoking, COPD, CAD, C ancer, CVA, ARF, Chemo, Hep., AIDS, mental health diagnosis, sleep apnea, morbid obesity)? @ -CAD, history of CVA/TIA, GERD, hyperlipidemia, prostate disorder, vascular disorder Was patient admitted / discharged? Hospital course, mention meds given and route, prescriptions, significant lab abnormalities, going to OR and other pertinent info. @ -Discharge. 83-year-old male presented the ER for evaluation of left lower quadrant abdominal pain. Upon rooming, history and physical exam completed. Vitals within acceptable limits. There is focal abdominal tenderness to the left lower quadrant with normal bowel sounds. No rebound or guarding. Laboratory studies obtained showing WBC of 5.9 and lactic 1.1. Normocytic normochromic anemia of 11.3 which appears to be chronic in nature. BUN of 34, creatinine 1.28 with GFR 51 patient did receive IV fluids while in the ER. Urine analysis with trace protein and trace leukocyte esterases no evidence of infection. CT abdomen pelvis showing nonobstructing left renal stones and mild diverticulitis of the distal descending colon for which patient will be started on Augmentin, first dose in the ER. Patient received symptomatic control in the ER with IV fluids and Tylenol, with improvement upon reevaluation. Upon reevaluation, patient resting company exam room no signs of acute distress. Results discussed with patient, all questions answered. Augmentin prescribed. Advise close follow-up with PCP. Instructed [id number] Tylenol for symptom control outpatient. Strict return parameters discussed. Patient discharged stable condition. Patient and patient's verbally expressed understanding and agreement with care plan. Case discussed with ED attending, . Undiagnosed new problem with uncertain prognosis? @ -No Drug Therapy requiring intensive monitoring for toxicity (Heparin, Nitro, Insulin, Cardizem)? @ -No Were any procedures done? @ -No Diagnosis/symptom? @ -Diverticulitis Acute, or Chronic, or Acute on Chronic? @ -Acute Uncomplicated (without systemic symptoms) or Complicated (systemic symptoms)? @ -Uncomplicated Side effects of treatment? @ -No Exacerbation, Progression, or Severe Exacerbation? @ -No Poses a threat to life or bodily function? How? (Chest pain, USA, GA, pneumonia, PE, COPD, DKA, ARF, appy, cholecystitis, CVA, Diverticulitis, Homicidal, Suicidal, threat to staff... and all critical care pts) @ -Low at this time. Diverticulitis can lead to sepsis and/or bowel perforation which can be life-threatening. - Lab Data Result diagrams: 08/27/24 23:51 08/27/24 23:51 Lab Results 08/27/24 08/27/24 08/27/24 Range/Units 23:51 23:51 23:51 WBC 5.9 (3.8-10.6) k/uL RBC 4.14 L (4.30-5.90) m/uL Hgb 11.3 L (13.0-17.5) gm/dL Hct 34.7 L (39.0-53.0) % MCV 83.7 (80.0-100.0) fL MCH 27.3 (25.0-35.0) pg MCHC 32.6 (31.0-37.0) g/dL RDW 16.4 H (11.5-15.5) % Plt Count 122 L (150-450) k/uL MPV 7.6 Neutrophils % 74 % Lymphocytes % 13 % Monocytes % 8 % Eosinophils % 4 % Basophils % 0 % Neutrophils # 4.4 (1.3-7.7) k/uL Lymphocytes # 0.8 L (1.0-4.8) k/uL Monocytes # 0.5 (0-1.0) k/uL Eosinophils # 0.2 (0-0.7) k/uL Basophils # 0.0 (0-0.2) k/uL Hypochromasia Slight Anisocytosis Slight Sodium 137 (137-145) mmol/L Potassium 4.0 (3.5-5.1) mmol/L Chloride 99 (98-107) mmol/L Carbon Dioxide 31 H (22-30) mmol/L Anion Gap 7 mmol/L BUN 34 H (9-20) mg/dL Creatinine 1.28 H (0.66-1.25) mg/dL Est GFR (CKD-EPI)AfAm 59 (>60 ml/min/1.73 sqM) Est GFR (CKD-EPI)NonAf 51 (>60 ml/min/1.73 sqM) Glucose 188 H (74-99) mg/dL Plasma Lactic Acid Vitaly (0.7-2.0) mmol/L Calcium 9.3 (8.4-10.2) mg/dL Total Bilirubin 0.9 (0.2-1.3) mg/dL AST 26 (17-59) U/L ALT 18 (4-49) U/L Alkaline Phosphatase 111 (38-126) U/L Total Protein 6.5 (6.3-8.2) g/dL Albumin 3.9 (3.5-5.0) g/dL Amylase 85 (30-110) U/L Lipase 203 (23-300) U/L Urine Color Yellow Urine Appearance Clear (Clear) Urine pH 5.5 (5.0-8.0) Ur Specific [place] 1.022 (1.001-1.035) Urine Protein Negative (Negative) Urine Glucose (UA) Trace H (Negative) Urine Ketones Negative (Negative) Urine Blood Negative (Negative) Urine Nitrite Negative (Negative) Urine Bilirubin Negative (Negative) Urine Urobilinogen <2.0 (<2.0) mg/dL Ur Leukocyte Esterase Trace H (Negative) Urine RBC 1 (0-5) /hpf Urine WBC 1 (0-5) /hpf Ur Squamous Epith Cells <1 (0-4) /hpf Hyaline Casts 14 H (0-2) /lpf Urine Mucus Rare H (None) /hpf 08/28/24 Range/Units 00:49 WBC (3.8-10.6) k/uL RBC (4.30-5.90) m/uL Hgb (13.0-17.5) gm/dL Hct (39.0-53.0) % MCV (80.0-100.0) fL MCH (25.0-35.0) pg MCHC (31.0-37.0) g/dL RDW (11.5-15.5) % Plt Count (150-450) k/uL MPV Neutrophils % % Lymphocytes % % Monocytes % % Eosinophils % % Basophils % % Neutrophils # (1.3-7.7) k/uL Lymphocytes # (1.0-4.8) k/uL Monocytes # (0-1.0) k/uL Eosinophils # (0-0.7) k/uL Basophils # (0-0.2) k/uL Hypochromasia Anisocytosis Sodium (137-145) mmol/L Potassium (3.5-5.1) mmol/L Chloride (98-107) mmol/L Carbon Dioxide (22-30) mmol/L Anion Gap mmol/L BUN (9-20) mg/dL Creatinine (0.66-1.25) mg/dL Est GFR (CKD-EPI)AfAm (>60 ml/min/1.73 sqM) Est GFR (CKD-EPI)NonAf (>60 ml/min/1.73 sqM) Glucose (74-99) mg/dL Plasma Lactic Acid Vitaly 1.1 (0.7-2.0) mmol/L Calcium (8.4-10.2) mg/dL Total Bilirubin (0.2-1.3) mg/dL AST (17-59) U/L ALT (4-49) U/L Alkaline Phosphatase (38-126) U/L Total Protein (6.3-8.2) g/dL Albumin (3.5-5.0) g/dL Amylase (30-110) U/L Lipase (23-300) U/L Urine Color Urine Appearance (Clear) Urine pH (5.0-8.0) Ur Specific [place] (1.001-1.035) Urine Protein (Negative) Urine Glucose (UA) (Negative) Urine Ketones (Negative) Urine Blood (Negative) Urine Nitrite (Negative) Urine Bilirubin (Negative) Urine Urobilinogen (<2.0) mg/dL Ur Leukocyte Esterase (Negative) Urine RBC (0-5) /hpf Urine WBC (0-5) /hpf Ur Squamous Epith Cells (0-4) /hpf Hyaline Casts (0-2) /lpf Urine Mucus (None) /hpf - Radiology Data Radiology results: report reviewed, image reviewed Disposition Clinical Impression: Diverticulitis Disposition: HOME SELF-CARE Condition: Stable Instructions (If sedation given, give patient instructions): Diverticulitis (DC) Additional Instructions: Complete full course of antibiotics. You may take [id number] Tylenol for pain control. Follow-up closely with PCP. Return to the ER for any new or worsening concerns. Prescriptions: Amoxic-Pot Clav 875-125Mg [Augmentin 875-125] 1 tab PO Q12HR #14 tab Is patient prescribed a controlled substance at d/c from ED?: No Referrals: Sergio Gayle MD [Primary Care Provider] - 1-2 days Time of Disposition: 01:17
[2024-08-28] MEDS: ACETAMINOPHEN TAB 325 MG TAB PO STA (00:12)
[2024-08-28] MEDS: SODIUM CHLORIDE 0.9% 500 ML 500 ML IV STA (00:12)
[2024-08-28 00:15] LABS: Anisocytosis Slight; Basophils % (A) 0 %; Eosinophils # (A) 0.2 k/uL (0-0.7); Eosinophils % (A) 4 %; HCT 34.7 % (39.0-53.0); HGB 11.3 gm/dL (13.0-17.5); Hypochromasia Slight; Lymphocytes # (A) 0.8 k/uL (1.0-4.8); Lymphocytes % (A) 13 %; MCH 27.3 pg (25.0-35.0); MCHC 32.6 g/dL (31.0-37.0); MCV 83.7 fL (80.0-100.0); Mean Platelet Volume 7.6; Monocytes # (A) 0.5 k/uL (0-1.0); Monocytes % (A) 8 %; Neutrophils # (A) 4.4 k/uL (1.3-7.7); Neutrophils % (A) 74 %; Platelet Count 122 k/uL (150-450); RBC 4.14 m/uL (4.30-5.90); RDW 16.4 % (11.5-15.5); WBC 5.9 k/uL (3.8-10.6)
--- NOTE | 2024-08-28 00:22 | CT ---
EXAM: CT Abdomen and Pelvis Without Intravenous Contrast CLINICAL HISTORY: ITS.REASON CT Reason: LLQ abd pain TECHNIQUE: Axial computed tomography images of the abdomen and pelvis without intravenous contrast. CTDI is 11.3 mGy and DLP is 707 mGy-cm. This CT exam was performed using one or more of the following dose reduction techniques: automated exposure control, adjustment of the mA and/or kV according to patient size, and/or use of iterative reconstruction technique. COMPARISON: No relevant prior studies available. FINDINGS: Lung bases: Unremarkable. No mass. No consolidation. ABDOMEN: Liver: Unremarkable. Gallbladder and bile ducts: Cholecystectomy. No ductal dilation. Pancreas: Unremarkable. No ductal dilation. Spleen: Unremarkable. No splenomegaly. Adrenals: Unremarkable. No mass. Kidneys and ureters: Nonobstructing left-sided renal stones, measuring up to 5 mm in the LEFT upper pole. Stomach and bowel: Mild diverticulitis of the distal descending colon, consistent with mild peridiverticular inflammation. No obstruction. PELVIS: Appendix: No findings to suggest acute appendicitis. Bladder: Unremarkable. No stones. Reproductive: Unremarkable as visualized. ABDOMEN and PELVIS: Intraperitoneal space: Unremarkable. No free air. No significant fluid collection. Bones/joints: No acute fracture. No dislocation. Soft tissues: Unremarkable. Vasculature: Unremarkable. No abdominal aortic aneurysm. Lymph nodes: Unremarkable. No enlarged lymph nodes. IMPRESSION: 1. Nonobstructing left-sided renal stones, measuring up to 5 mm in the LEFT upper pole. 2. Mild diverticulitis of the distal descending colon, consistent with mild peridiverticular inflammation. 3. Cholecystectomy.
[2024-08-28 00:25] LABS: ALT 18 U/L (4-49); AST 26 U/L (17-59); African American GFR (CKD) 59 (>60 ml/min/1.73 sqM); Albumin 3.9 g/dL (3.5-5.0); Alkaline Phosphatase 111 U/L (38-126); Amylase 85 U/L (30-110); Anion Gap 7 mmol/L; Blood Urea Nitrogen 34 mg/dL (9-20); Calcium 9.3 mg/dL (8.4-10.2); Carbon Dioxide 31 mmol/L (22-30); Chloride 99 mmol/L (98-107); Glucose 188 mg/dL (74-99); Lipase 203 U/L (23-300); Non-African American GFR(CKD) 51 (>60 ml/min/1.73 sqM); Sodium 137 mmol/L (137-145); Total Bilirubin 0.9 mg/dL (0.2-1.3); Total Protein 6.5 g/dL (6.3-8.2)
[2024-08-28 00:36] LABS: Appearance,Urine Clear (Clear); Bilirubin,Urine Negative (Negative); Blood,Urine Negative (Negative); Color,Urine Yellow; Glucose,Urine (UA) Trace (Negative); Hyaline Casts,Urine 14 /lpf (0-2); Ketones,Urine Negative (Negative); Leukocyte Esterase,Urine Trace (Negative); Mucus,Urine Rare /hpf; Nitrite,Urine Negative (Negative); PH, Urine 5.5 (5.0-8.0); Protein,Urine Negative (Negative); RBC,Urine 1 /hpf (0-5); Specific Gravity,Urine 1.022 (1.001-1.035); Squamous Epithelial Cell,Urine <1 /hpf (0-4); Urobilinogen,Urine <2.0 mg/dL (<2.0); WBC,Urine 1 /hpf (0-5)
[2024-08-28 01:16] VITALS: BP 122/85; PULSE 74; RESP 18
[2024-08-28] MEDS: AMOXIC-POT CLAV 875-125MG 1 EACH TAB PO STA (01:29)
== END 2024-08-28 01:30 | disposition home or self-care (01) ==
LOC: EC 23:08
DX: K57.32 Diverticulitis of large intestine without perforation or abscess without bleeding (principal); Z86.73 Personal history of transient ischemic attack (TIA), and cerebral infarction without residual deficits; I25.10 Atherosclerotic heart disease of native coronary artery without angina pectoris; K21.9 Gastro-esophageal reflux disease without esophagitis; E78.5 Hyperlipidemia, unspecified; Z87.430 Personal history of prostatic dysplasia; Z86.79 Personal history of other diseases of the circulatory system; Z87.891 Personal history of nicotine dependence; Z88.5 Allergy status to narcotic agent; Z88.8 Allergy status to other drugs, medicaments and biological substances
CPT/HCPCS: 36415; 74176; 80053; 81001; 82150; 83605; 83690; 85025; 96360; 99284

== ENCOUNTER 2025-01-25 08:35 | Emergency (ER) | payer MEDICARE ==
[2025-01-25 08:47] VITALS: RESP 18; TEMP 97.8
--- NOTE | 2025-01-25 09:14 | ED ---
General Adult HPI - General Source: patient, family, RN notes reviewed, old records reviewed Mode of arrival: ambulatory Limitations: no limitations <Cristine Luna - Last Filed: 01/25/25 14:04> <Jeb Meyer - Last Filed: 01/25/25 15:46> - General Chief complaint: Abdominal Pain Stated complaint: Abd Pain Time Seen by Provider: 01/25/25 08:48 - History of Present Illness Initial comments: 84-year-old male with a past medical history of kidney stones, atrial fibrillation, and status post CABG presents with complaints of abdominal pain. Of note patient was here in July with similar complaints, at that time CT abdomen showed some mild diverticulitis and a nonobstructing 5 mm kidney stone. States for the last 4 to 5 days he has been having some left lower quadrant abdominal pain with occasional radiation to the back. Denies nausea, vomiting, diarrhea during this time. States his last normal bowel movement was yesterday which was formed and normal for him. Denies any dysuria, hematuria, melena, hematemesis, hematochezia. Also denies urinary frequency, hesitancy, and urgency. Reports he normally follows with Dr. Tesfaye for urology, has a extensive history of kidney stones for which in the past he has received lithotripsy. States he saw his urologist recently. Denies fevers, headache, c hest pain, shortness of breath. (Cristine Luna) - Related Data Home Medications Medication Instructions Recorded Confirmed traMADol HCL [Ultram] 50 mg PO DAILY PRN 09/26/16 06/03/24 Tamsulosin [Flomax] 0.8 mg PO HS 11/01/16 06/03/24 Acetaminophen Tab [Tylenol] 650 mg PO Q4-6H PRN 11/17/21 06/03/24 Apixaban [Eliquis] 5 mg PO BID 11/17/21 06/01/24 Cyclobenzaprine [Flexeril] 5 mg PO DAILY PRN 09/05/22 06/03/24 Finasteride [Proscar] 5 mg PO DAILY 09/05/22 06/03/24 Montelukast Sodium 10 mg PO DAILY 03/31/23 06/03/24 Diclofenac Sodium [Voltaren] 75 mg PO BID PRN 06/01/24 06/03/24 Vit D(Unk) 5,000 units PO DAILY 06/01/24 06/03/24 Previous Rx's Medication Instructions Recorded Aspirin 81 mg PO DAILY #30 tab 04/02/23 Amoxic-Pot Clav 875-125Mg 1 tab PO Q12HR #14 tab 08/28/24 [Augmentin 875-125] Sulfamethox-Tmp 800-160Mg [Bactrim 1 tab PO Q12HR #13 tab 01/25/25 DS 800-160 mg] metroNIDAZOLE 500 mg PO TID #23 tablet 01/25/25 Allergies Allergy/AdvReac Type Severity Reaction Status Date / Time morphine Allergy arm pham Verified 01/25/25 08:46 and becomes beligerant codeine AdvReac Hallucinati Verified 01/25/25 08:46 ons hydrocodone [From [place]] AdvReac Hallucinati Verified 01/25/25 08:46 ons Review of Systems ROS Other: All systems not noted in ROS Statement are negative. <Cristine Luna - Last Filed: 01/25/25 14:04> ROS Other: All systems not noted in ROS Statement are negative. <Jeb Meyer - Last Filed: 01/25/25 15:46> ROS Statement: Those systems with pertinent positive or pertinent negative responses have been documented in the HPI. Past Medical History Past Medical History: Coronary Artery Disease (CAD), CVA/TIA, GERD/Reflux, Hearing Disorder / Deafness, Hyperlipidemia, Myocardial Infarction (SD), Osteoarthritis (OA), Prostate Disorder, Skin Disorder, Sleep Apnea/CPAP/BIPAP, Vascular Disorder Additional Past Medical History / Comment(s): CVA with no residual, TIAs, "silent migraines"-pt gets blurry vision, mild headache, PVD, pt cannot tolerate statins, inguinal hernia, peptic ulcer, anemia, chronic lower extremity edema, kidney stones/had shockwave treatment, BPH, JEFF/does not tolerate device, seasonal allergies, sinus problems, precancerous lesions removed from scalp, recent SOB w/exertion, fatigue Last Myocardial Infarction Date:: 2014 History of Any Multi-Drug Resistant Organisms: None Reported Past Surgical History: Cardiac Valve Replacement, Cholecystectomy, Coronary Bypass/CABG, Heart Catheterization, Hernia Repair, Joint Replacement, Orthopedic Surgery, Pacemaker, Tonsillectomy Additional Past Surgical History / Comment(s): 2014 CABG 2 vessel with 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 alycia cataracts removed Past Anesthesia/Blood Transfusion Reactions: Motion Sickness Additional Past Anesthesia/Blood Transfusion Reaction / Comment(s): motion sickness as child Type of Cardiac Device: Permanent Pacemaker Device Placement Date:: 09/2019 Past Psychological History: No Psychological Hx Reported Smoking Status: Former smoker Past Alcohol Use History: None Reported, Occasional Past Drug Use History: None Reported - Past Family History Brother(s) Family Medical History: No Reported History Mother Additional Family Medical History / Comment(s): Mother grew up in [facility]. She had rickett's Father Family Medical History: Cancer, Pneumonia <Cristine Luna - Last Filed: 01/25/25 14:04> General Exam Limitations: no limitations <Cristine Luna - Last Filed: 01/25/25 14:04> - General Exam Comments Initial Comments: GENERAL:In no apparent distress at the time of examination. Pleasant and cooperative. HEENT: Head is atraumatic, normocephalic. Pupils are equal, round, and reactive to light. Sclerae anicteric. Conjunctivae are clear. Mucus membranes of the mouth are moist. Neck is supple. RESPIRATORY: Clear to auscultation. No wheezes, rales, or rhonchi. No use of accessory muscles. Patient maintaining oxygen saturation greater than 92%. No chest wall tenderness is noted on palpation or with deep breathing. CARDIOVASCULAR: Regular rate and rhythm. S1 and S2 noted. Systolic ejection murmur auscultated. No JVD noted. No S3 or S4 noted. GASTROINTESTINAL: Mild distention noted. Abdomen soft and round. Normal active bowel sounds auscultated x 4 quadrants. Significant tenderness to palpation in the left lower and left upper quadrant, patient winced when touching left lower quadrant. EXTREMITIES: 2+ peripheral pulses. No evidence of peripheral edema. No calf tenderness noted. PSYCHIATRIC: Awake, alert, and oriented X 3. Appropriate affect. Intact judgement and insight. (Cristine Luna) Course Vital Signs 06/30/25 06/30/25 06/30/25 08:44 12:00 12:25 Temperature 97.8 F Pulse Rate 68 61 Respiratory 18 18 18 Rate Blood Pressure 163/71 141/72 O2 Sat by Pulse 96 94 L Oximetry Medical Decision Making - Lab Data Result diagrams: 01/25/25 10:00 01/25/25 10:00 <Cristine Luna - Last Filed: 01/25/25 14:04> - Lab Data Result diagrams: 01/25/25 10:00 01/25/25 10:00 <Jeb Meyer - Last Filed: 01/25/25 15:46> - Medical Decision Making Was pt. sent in by a medical professional or institution (, PA, POLYMER MATERIALS CONSULTANT, urgent care, hospital, or senior living...) When possible be specific @ -No Did you speak to anyone other than the patient for history (EMS, parent, family, police, friend...)? What history was obtained from this source @ -Yes, family Did you review nursing and triage notes (agree or disagree)? Why? @ -I reviewed and agree with nursing and triage notes Were old charts reviewed (outside hosp., previous admission, EMS record, old EKG, old radiological studies, urgent care reports/EKG's, senior living records)? Report findings @ -No old charts were reviewed Differential Diagnosis? @ -Differential Abdominal Pain Men: Appendicitis, cholecystitis, diverticulosis, diverticulitis, ischemic bowel, pancreatitis, hepatitis, UTI, gastroenteritis, AAA, incarcerated hernia, bowel obstruction, constipation, inflammatory bowel, hepatitis, peptic ulcer disease, splenic infarction, perforated viscus, testicular torsion, this is not meant to be an all-inclusive list EKG interpreted by me (3pts min.). @ -As above X-rays interpreted by me (1pt min.). @ -None done CT interpreted by me (1pt min.). @ -CT of the abdomen pelvis showed a nonobstructing renal calculi on the left as well as some noncomplicated diverticulitis in the sigmoid colon, this was interpreted by me U/S interpreted by me (1pt. min.). @ -None done What testing was considered but not performed or refused? (CT, X-rays, U/S, labs)? Why? @ -None What meds were considered but not given or refused? Why? @ -None Did you discuss the management of the patient with other professionals (professionals i.e. , PA, POLYMER MATERIALS CONSULTANT, lab, RT, psych nurse, child welfare social worker, medical cost consultant, teacher, first officer, home health care case manager)? Give summary @ -No Was smoking cessation discussed for >3mins.? @ -No Was critical care preformed (if so, how long)? @ -No Were there social determinants of health that impacted care today? How? (Homelessness, low income, unemployed, alcoholism, drug addiction, transportation, low edu. Level, literacy, decrease access to med. care, [facility], rehab)? @ -No Was there de-escalation of care discussed even if they declined (Discuss DNR or withdrawal of care, Hospice)? DNR status @ -No What co-morbidities impacted this encounter? (DM, HTN, Smoking, COPD, CAD, Cancer, CVA, ARF, Chemo, Hep., AIDS, mental health diagnosis, sleep apnea, morbid obesity)? @ -None Was patient admitted / discharged? Hospital course, mention meds given and route, prescriptions, significant lab abnormalities, going to OR and other pertinent info. @ -Discharged, this is an 84-year-old male who presents with complaints of left lower quadrant abdominal pain, nausea, and vomiting. Of note patient has a history of left-sided kidney stones as well as diverticulitis. Patient follows with the urologist for the kidney stones for which she has received multiple lithotripsies in the past. While here in the ER patient underwent CBC and CMP which was within normal limits, also had a CT abdomen pelvis which showed the same nonobstructing renal calculi from previous imaging in July, but did demonstrate some noncomplicated diverticulitis. At this time the patient was feeling somewhat better after receiving some pain medication, gave 1 dose of Bactrim double strength and metronidazole here in the ER and prescribed the remaining course to the patient's pharmacy. At this time patient was deemed fit for discharge. Patient was advised to stick to a clear liquid diet for the next couple of days until the pain started to decrease in his abdomen and then slowly reintroduce solid foods. Patient is vies follow-up with his PCP in 1 to 2 days. Undiagnosed new problem with uncertain prognosis? @ -No Drug Therapy requiring intensive monitoring for toxicity (Heparin, Nitro, Insulin, Cardizem)? @ -No Were any procedures done? @ -No Diagnosis/symptom? @ -Diverticulitis Acute, or Chronic, or Acute on Chronic? @ -Acute Uncomplicated (without systemic symptoms) or Complicated (systemic symptoms)? @ -Default Side effects of treatment? @ -No Exacerbation, Progression, or Severe Exacerbation? @ -No Poses a threat to life or bodily function? How? (Chest pain, USA, SD, pneumonia, PE, COPD, DKA, ARF, appy, cholecystitis, CVA, Diverticulitis, Homicidal, Suicidal, threat to staff... and all critical care pts) @ -No (Cristine Luna) I personally saw the patient and performed the critical portion of the service. I discussed the patient care with the resident. I directed management, care planning and final disposition of the patient. This includes, but not limited to, review of all lab work, radiological studies, EKG's, consultations, vital signs, and nursing notes. EKG interpreted by me (3pts min.) @As above X-Rays interpreted by me (1 pt min.) @None CT interpreted by me ( 1pt min.) @CT ab pelvis shows acute uncomplicated reticulitis U/S interpreted by me (1 pt min.) @None Critical care time of 0 minutes excluding separately billable procedures was spent in conjunction with critical care activities provided by the Resident and Attending simultaneously. I was present during no procedures for all critical portions of the procedure and as immediately available to furnish service during the entire procedure. (Jeb Meyer) - Lab Data Lab Results 01/25/25 01/25/25 01/25/25 Range/Units 10:00 10:00 10:40 WBC 5.99 (4.50-10.00) 10*3/uL RBC 3.88 L (4.40-5.60) 10*6/uL Hgb 10.6 L (13.0-17.0) g/dL Hct 32.7 L (39.6-50.0) % MCV 84.3 (80.0-97.0) fL MCH 27.3 (27.0-32.0) pg MCHC 32.4 (32.0-37.0) g/dL Plt Count 153 (140-440) 10*3/uL MPV 10.5 (9.5-12.2) fL Immature Gran % (Auto) 0.3 % Neutrophils % 74.9 % Lymphocytes % 11.5 % Monocytes % 9.3 % Eosinophils % 3.8 % Basophils % 0.2 % Immature Gran # 0.02 (0.00-0.04) 10*3/uL Neutrophils # 4.48 (1.80-7.70) 10*3/uL Lymphocytes # 0.69 L (0.90-5.00) 10*3/uL Monocytes # 0.56 (0.20-1.00) 10*3/uL Eosinophils # 0.23 (0.04-0.35) 10*3/uL Basophils # 0.01 (0.00-0.10) 10*3/uL Sodium 139 (137-145) mmol/L Potassium 4.2 (3.5-5.1) mmol/L Chloride 106 (98-107) mmol/L Carbon Dioxide 26 (22-30) mmol/L Anion Gap 7 mmol/L BUN 25 H (9-20) mg/dL Creatinine 1.04 (0.66-1.25) mg/dL Est GFR (CKD-EPI)AfAm 76 (>60 ml/min/1.73 sqM) Est GFR (CKD-EPI)NonAf 66 (>60 ml/min/1.73 sqM) Glucose 98 (74-99) mg/dL Calcium 9.4 (8.4-10.2) mg/dL Total Bilirubin 1.6 H (0.2-1.3) mg/dL AST 27 (17-59) U/L ALT 18 (4-49) U/L Alkaline Phosphatase 135 H (38-126) U/L Total Protein 6.4 (6.3-8.2) g/dL Albumin 3.9 (3.5-5.0) g/dL Urine Color Light Yellow Urine Appearance Clear (Clear) Urine pH 6.0 (5.0-8.0) Ur Specific [place] 1.018 (1.001-1.035) Urine Protein Negative (Negative) Urine Glucose (UA) Negative (Negative) Urine Ketones Negative (Negative) Urine Blood Negative (Negative) Urine Nitrite Negative (Negative) Urine Bilirubin Negative (Negative) Urine Urobilinogen <2.0 (<2.0) mg/dL Ur Leukocyte Esterase Negative (Negative) Disposition Is patient prescribed a controlled substance at d/c from ED?: No <Cristine Luna - Last Filed: 01/25/25 14:04> <Jeb Meyer - Last Filed: 01/25/25 15:46> Clinical Impression: Diverticulitis Disposition: HOME SELF-CARE Condition: Fair Instructions (If sedation given, give patient instructions): Diverticulitis (ED) Prescriptions: Sulfamethox-Tmp 800-160Mg [Bactrim DS 800-160 mg] 1 tab PO Q12HR #13 tab metroNIDAZOLE 500 mg PO TID #23 tablet Referrals: Sergio Gayle MD [Primary Care Provider] - 1-2 days
[2025-01-25] MEDS: SODIUM CHLORIDE 0.9% 500 ML 500 ML IV ONE (09:58)
[2025-01-25] MEDS: ACETAMINOPHEN TAB 325 MG TAB PO STA (09:58)
[2025-01-25 10:13] LABS: Basophils # (A) 0.01 10*3/uL (0.00-0.10); Basophils % (A) 0.2 %; Eosinophils # (A) 0.23 10*3/uL (0.04-0.35); Eosinophils % (A) 3.8 %; HCT 32.7 % (39.6-50.0); HGB 10.6 g/dL (13.0-17.0); Lymphocytes # (A) 0.69 10*3/uL (0.90-5.00); Lymphocytes % (A) 11.5 %; MCH 27.3 pg (27.0-32.0); MCHC 32.4 g/dL (32.0-37.0); MCV 84.3 fL (80.0-97.0); Mean Platelet Volume 10.5 fL (9.5-12.2); Monocytes # (A) 0.56 10*3/uL (0.20-1.00); Monocytes % (A) 9.3 %; Neutrophils # (A) 4.48 10*3/uL (1.80-7.70); Neutrophils % (A) 74.9 %; Platelet Count 153 10*3/uL (140-440); RBC 3.88 10*6/uL (4.40-5.60); RDW 16.4 % (11.5-14.5); WBC 5.99 10*3/uL (4.50-10.00)
[2025-01-25 10:33] LABS: ALT 18 U/L (4-49); AST 27 U/L (17-59); African American GFR (CKD) 76 (>60 ml/min/1.73 sqM); Albumin 3.9 g/dL (3.5-5.0); Alkaline Phosphatase 135 U/L (38-126); Anion Gap 7 mmol/L; Blood Urea Nitrogen 25 mg/dL (9-20); Calcium 9.4 mg/dL (8.4-10.2); Carbon Dioxide 26 mmol/L (22-30); Chloride 106 mmol/L (98-107); Glucose 98 mg/dL (74-99); Non-African American GFR(CKD) 66 (>60 ml/min/1.73 sqM); Potassium 4.2 mmol/L (3.5-5.1); Sodium 139 mmol/L (137-145); Total Bilirubin 1.6 mg/dL (0.2-1.3); Total Protein 6.4 g/dL (6.3-8.2)
[2025-01-25 10:51] LABS: Appearance,Urine Clear (Clear); Bilirubin,Urine Negative (Negative); Blood,Urine Negative (Negative); Color,Urine Light Yellow; Glucose,Urine (UA) Negative (Negative); Ketones,Urine Negative (Negative); Leukocyte Esterase,Urine Negative (Negative); Nitrite,Urine Negative (Negative); Protein,Urine Negative (Negative); Specific Gravity,Urine 1.018 (1.001-1.035); Urobilinogen,Urine <2.0 mg/dL (<2.0)
--- NOTE | 2025-01-25 11:37 | CT ---
EXAMINATION TYPE: CT abdomen pelvis w con DATE OF EXAM: 01/25/2025 11:12 AM COMPARISON: None. CLINICAL INDICATION: Male, 84 years old with history of abd pain, Abdominal pain TECHNIQUE:CT scan of the abdomen and pelvis is performed without Oral Contrast and with IV Contrast, patient injected with 100 ml mL of Isovue 300. CT DLP: 1040.4 mGycm, Automated exposure control for dose reduction was used. FINDINGS: LUNG BASES-: No visible nodule. No infiltrate. LIVER/GB: The gallbladder is surgically absent. Hepatomegaly noted. Fatty hepatic steatosis. No space occupying hepatic lesion. Biliary tree is of normal caliber. PANCREAS: No inflammation. No distinct mass. SPLEEN: No splenic enlargement. No lesion seen. ADRENALS: No nodule. No thickening. KIDNEYS/BLADDER: No hydronephrosis. Small nonobstructing left-sided renal calculi. No distinct renal mass. Urinary bladder grossly unremarkable. BOWEL: Normal appendix. Wall thickening and mild inflammatory change noted at the proximal sigmoid co [place] compatible with mild uncomplicated diverticulitis. No evidence of perforation or abscess. GENITAL ORGANS: No gross abnormality. LYMPH NODES: No greater than 1cm abdominal or pelvic lymph nodes are appreciated. AORTA: No significant abnormality. OSSEOUS STRUCTURES: No significant abnormality is seen. OTHER: No significant additional abnormality is seen. IMPRESSION: 1. Wall thickening and mild inflammatory change noted at the proximal sigmoid colon compatible with m ild uncomplicated diverticulitis. [facility] Magan Hazel, , 01/25/2025 11:34 AM
[2025-01-25 12:02] VITALS: BP 141/72; PULSE 61
[2025-01-25] MEDS: SULFAMETHOX-TMP 800-160MG 1 EACH TAB PO STA (12:21)
[2025-01-25] MEDS: metroNIDAZOLE 500 MG TAB PO STA (12:21)
== END 2025-01-25 12:34 | disposition home or self-care (01) ==
LOC: EC 08:35
DX: K57.32 Diverticulitis of large intestine without perforation or abscess without bleeding (principal); Z87.891 Personal history of nicotine dependence; Z88.5 Allergy status to narcotic agent
CPT/HCPCS: 36415; 93005; 80053; 85025; 81003; 74177; 99284; 96360; 96361; Q9967